=== PATIENT | male | born 1960 | race Caucasian/White ===

== ENCOUNTER 2019-08-06 07:38 | Day surgery (SDC) | payer MEDICARE, OTHER, SELFPAY ==
[2019-08-05 11:29] VITALS: BMI 46.5
--- NOTE | 2019-08-06 08:02 | ANES.PREANES ---
Pre-Anesthetic Assessment Pre-Anesthetic Assessment: Height/Weight: Height 1.8 m Weight 151.5 kg Preop Diagnosis: polyps Proposed Procedure: Operation Date: 08/06/19 09:15 Proposed Procedures p Colonoscopy(Not Applicable) - Urban Gotti MD Familial anesthetic complications: No trouble Was Beta Rick taken within 24 hours: Yes Last intake: NPO since yesterday, sips with meds this morning Social: Social History: Alcohol (2-3 beers a day) and Tobacco Packs per day: 2 ppd Exam: Pre-Anes Outpt Exam: alert, oriented x 3, clear to auscultation bilaterally and regular rate & rhythm Airway: Submandibular: WNL Cervical ROM: WNL MP: 3 Additional comments: missing Pulmonary: Pulmonary: None reported CV/HEM: CV/HEM: HTN : : None reported Hepatic: Hepatic: None reported GI: GI: None reported Metabolic: Metabolic: DM and Morbid obesity Comments: On insulin Musc/skel: Comments: 2014 uses wheelchair due to Broken feet and bad knee Neuropsych: Neuropsych: None reported Anesthetic Plan: ASA status: II Anesthesia: MAC Risk of > 500 ml blood loss (7ml/kg in children): No PFSH Anesthesia PFSH: Social History (Updated 08/05/19 @ 11:21 by Patricia Villa) Smoking and tobacco status: former smoker Quit status (tobacco): has quit using tobacco Alcohol intake: current Alcohol intake frequency: 3 or more drinks per day Substance/Drug Use: never Data Anesthesia Cardiac Studies: No Data to Display
--- NOTE | 2019-08-06 08:09 | PM.PACU ---
PACU note Post-Anesthesia Exam: awake and vital signs stable Disposition: discharged and back to floor
[2019-08-06 08:54] VITALS: BP 180/88; PULSE 68; RESP 18; TEMP 36.7; O2SAT 95
[2019-08-06] MEDS: sodium chloride 0.9% 1,000 ML 30 ML (09:01)
[2019-08-06 09:16] LABS: Glucose Point of Care 145 mg/dL (70-110)
--- NOTE | 2019-08-06 09:24 | P.HPUD_ITS ---
H&P update H&P Update: DATE OF SURGERY/PROCEDURE: 08/06/19 DATE H&P PERFORMED: 03/18 H&P UPDATE INFORMATION: H&P completed within last 30 days (07/10/19), No changes to prior documentation, H&P to be scanned into chart and H&P is in [facility] [place] EMR on date indicated PREOP DIAGNOSIS: History of bleeding per rectum and colon polyp PRIMARY INDICATION FOR PROCEDURE: Colonoscopy PLANNED PROCEDURE: Operation Date: 08/06/19 09:15 Proposed Procedures p Colonoscopy(Not Applicable) - Urban Gotti MD Full H&P Perinent History: Social History: Social History Smoking and tobacco status: former smoker Quit status (tobacco): has quit using tobacco Alcohol intake: current Alcohol intake frequency: 3 or more drinks per day Substance/Drug Use: never
[2019-08-06 10:17] VITALS: BP 139/84; PULSE 65; RESP 16; TEMP 36.5; O2SAT 93
--- NOTE | 2019-08-06 10:21 | ANE.PACU ---
 Inpatient post-anesthesia follow up: Airway intact: Yes Vital signs: Temperature 98.1 F Pulse Rate [Apical ] 68 Respiratory Rate 18 Blood Pressure [Le ft Arm] 180/88 Pulse Oximetry 95 Oxygen Delivery Me thod Room Air Oxygen Flow Rate Fraction of Inspir ed Oxygen Hydration adequate: Yes Nausea and vomiting: No Pain level: 2 Mental status: Baseline
[2019-08-06 10:32] VITALS: BP 148/78; PULSE 67; RESP 18; O2SAT 94
== END 2019-08-06 10:54 | disposition home or self-care (01) ==
PROVIDERS: Family Provider Nurse Practitioner Family; PCP Nurse Practitioner Family; Visit Provider Surgery
PROC: 0DJD8ZZ Inspection of Lower Intestinal Tract, Via Natural or Artificial Opening Endoscopic (ICD-10-PCS; CPT 45378; principal; 2019-08-06 09:15)
DX: Z86.010 Personal history of colon polyps (principal); K62.5 Hemorrhage of anus and rectum; D12.2 Benign neoplasm of ascending colon; D12.5 Benign neoplasm of sigmoid colon; F17.210 Nicotine dependence, cigarettes, uncomplicated; I10 Essential (primary) hypertension; E11.9 Type 2 diabetes mellitus without complications; E66.01 Morbid (severe) obesity due to excess calories; Z68.42 Body mass index [BMI] 45.0-49.9, adult; Z79.4 Long term (current) use of insulin
CPT/HCPCS: 36416; 45380; 45385; 82962; 88305; J2704; J7030

== ENCOUNTER → 2019-08-27 14:16 | Outpatient (BNVA) | payer MEDICARE, OTHER, SELFPAY | PROVIDERS: Family Provider Nurse Practitioner Family; PCP Nurse Practitioner Family; Visit Provider Nurse Practitioner Family | DX: I10 Essential (primary) hypertension (principal); L97.521 Non-pressure chronic ulcer of other part of left foot limited to breakdown of skin; E11.9 Type 2 diabetes mellitus without complications; Z79.4 Long term (current) use of insulin | CPT/HCPCS: 83036 ==

== ENCOUNTER → 2020-01-07 09:51 | Outpatient (BNVA) | payer MEDICARE, OTHER, SELFPAY | PROVIDERS: Family Provider Nurse Practitioner Family; PCP Nurse Practitioner Family; Visit Provider Nurse Practitioner Family | DX: E11.9 Type 2 diabetes mellitus without complications (principal); Z79.4 Long term (current) use of insulin; H10.9 Unspecified conjunctivitis; E78.5 Hyperlipidemia, unspecified; I10 Essential (primary) hypertension; H57.9 Unspecified disorder of eye and adnexa | CPT/HCPCS: 80053; 80061; 82044; 83036 ==

== ENCOUNTER → 2020-05-10 10:54 | Outpatient (BNVA) | payer MEDICARE, OTHER, SELFPAY | PROVIDERS: Family Provider Nurse Practitioner Family; PCP Nurse Practitioner Family; Visit Provider Nurse Practitioner Family | DX: Z79.899 Other long term (current) drug therapy (principal); Z23 Encounter for immunization; E08.40 Diabetes mellitus due to underlying condition with diabetic neuropathy, unspecified | CPT/HCPCS: 80053; 83036 ==

== ENCOUNTER → 2020-05-24 11:55 | Outpatient (BNVA) | payer MEDICARE, OTHER, SELFPAY | PROVIDERS: Family Provider Nurse Practitioner Family; PCP Nurse Practitioner Family; Visit Provider Nurse Practitioner Family | DX: Z03.818 Encounter for observation for suspected exposure to other biological agents ruled out (principal) | CPT/HCPCS: 87635 ==

== ENCOUNTER 2020-08-12 11:27 | Outpatient (CLI) | payer MEDICARE, OTHER, SELFPAY ==
--- NOTE | 2020-08-12 11:44 | USCV_ITS ---
Forrest Xiong Age: 60 Gender: M : 1960 Exam Date: 08/12/2020 12:02 Ordering Phys: Kathy LeonardoP Technologist: Estelle George [place] [facility] [place]WELLING HISTORY: Lower extremity swelling. PROCEDURES: Venous duplex imaging was performed in bilateral lower extremities. The following venous structures were evaluated: common femoral vein, profunda vein, proximal portion of the greater saphenous vein, superficial femoral vein, and the popliteal vein. In addition, the posterior tibial and peroneal trunk were evaluated. FINDINGS: Normal 2-D Doppler and augmentation and compressibility throughout the lower extremity venous structures. Additional imaging through the proximal calf veins also reveals no thrombus. Limited evaluation of the greater saphenous vein is patent with no thrombus.. CONCLUSIONS No evidence of left lower extremity DVT. Roderick Isaacs MD (Electronically Signed) Final Date: 12 August 2020 17:53 Amended: 13 August 2020 09:34 C
== END 2020-08-12 11:28 | disposition home or self-care (01) ==
LOC: RAD 11:35
PROVIDERS: PCP Nurse Practitioner Family; Visit Provider Nurse Practitioner Family
DX: I82.402 Acute embolism and thrombosis of unspecified deep veins of left lower extremity (principal); M79.89 Other specified soft tissue disorders
CPT/HCPCS: 93971

== ENCOUNTER 2020-08-18 06:00 | Outpatient (RCR) | payer MEDICARE, OTHER, SELFPAY | END 2020-08-29 23:59 | disposition home or self-care (01) | LOC: MOT 06:00 | PROVIDERS: PCP Nurse Practitioner Family; Referring Provider Nurse Practitioner Family; Visit Provider Nurse Practitioner Family | DX: I89.0 Lymphedema, not elsewhere classified (principal) | CPT/HCPCS: 97140; 97166 ==

== ENCOUNTER 2020-08-30 06:00 | Outpatient (RCR) | payer MEDICARE, OTHER, SELFPAY | END 2020-09-26 23:59 | disposition home or self-care (01) | LOC: MOT 06:00 | PROVIDERS: PCP Nurse Practitioner Family; Referring Provider Nurse Practitioner Family; Visit Provider Nurse Practitioner Family | DX: I89.0 Lymphedema, not elsewhere classified (principal) | CPT/HCPCS: 97140 ==

== ENCOUNTER 2020-09-27 06:00 | Outpatient (RCR) | payer MEDICARE, OTHER, SELFPAY | END 2020-10-27 23:59 | disposition home or self-care (01) | LOC: MOT 06:00 | PROVIDERS: PCP Nurse Practitioner Family; Referring Provider Nurse Practitioner Family; Visit Provider Nurse Practitioner Family | DX: I89.0 Lymphedema, not elsewhere classified (principal) | CPT/HCPCS: 97140 ==

== ENCOUNTER → 2020-09-29 10:22 | Outpatient (BNVA) | payer MEDICARE, OTHER, SELFPAY | PROVIDERS: PCP Nurse Practitioner Family; Visit Provider Nurse Practitioner Family | DX: E11.9 Type 2 diabetes mellitus without complications (principal); E78.5 Hyperlipidemia, unspecified; Z79.4 Long term (current) use of insulin; S90.412D Abrasion, left great toe, subsequent encounter; S99.922A Unspecified injury of left foot, initial encounter; X58.XXXA Exposure to other specified factors, initial encounter | CPT/HCPCS: 80061; 83036; 87070 ==

== ENCOUNTER → 2021-02-17 11:10 | Outpatient (BNVA) | payer MEDICARE, OTHER, SELFPAY | PROVIDERS: PCP Nurse Practitioner Family; Visit Provider Nurse Practitioner Family | DX: E11.9 Type 2 diabetes mellitus without complications (principal); Z79.4 Long term (current) use of insulin; I10 Essential (primary) hypertension | CPT/HCPCS: 80053; 83036 ==

== ENCOUNTER → 2021-08-11 09:09 | Outpatient (BNVA) | payer MEDICARE, OTHER, SELFPAY | PROVIDERS: PCP Nurse Practitioner Family; Visit Provider Nurse Practitioner Family | DX: L97.511 Non-pressure chronic ulcer of other part of right foot limited to breakdown of skin (principal); L97.521 Non-pressure chronic ulcer of other part of left foot limited to breakdown of skin; E11.9 Type 2 diabetes mellitus without complications; I10 Essential (primary) hypertension | CPT/HCPCS: 80053; 80061; 83036 ==

== ENCOUNTER → 2021-12-08 09:36 | Outpatient (BNVA) | payer MEDICARE, OTHER, SELFPAY | PROVIDERS: PCP Nurse Practitioner Family; Visit Provider Thoracic Surgery (Cardiothoracic Vascular Surgery) | DX: I73.9 Peripheral vascular disease, unspecified (principal); F17.210 Nicotine dependence, cigarettes, uncomplicated | CPT/HCPCS: 99203 ==

== ENCOUNTER → 2022-01-02 12:25 | Outpatient (BNVA) | payer MEDICARE, OTHER, SELFPAY | PROVIDERS: PCP Nurse Practitioner Family; Visit Provider Internal Medicine | DX: I73.9 Peripheral vascular disease, unspecified (principal); I10 Essential (primary) hypertension; E08.40 Diabetes mellitus due to underlying condition with diabetic neuropathy, unspecified; E78.5 Hyperlipidemia, unspecified; Z79.4 Long term (current) use of insulin; L98.499 Non-pressure chronic ulcer of skin of other sites with unspecified severity; F17.210 Nicotine dependence, cigarettes, uncomplicated | CPT/HCPCS: 99204; 99205 ==

== ENCOUNTER → 2022-01-11 09:48 | Outpatient (BNVA) | payer MEDICARE, OTHER, SELFPAY | PROVIDERS: PCP Nurse Practitioner Family; Visit Provider Internal Medicine | DX: I10 Essential (primary) hypertension (principal); I73.9 Peripheral vascular disease, unspecified; R58 Hemorrhage, not elsewhere classified | CPT/HCPCS: 80048; 85025; 85610 ==

== ENCOUNTER 2022-01-16 09:14 | Observation (INO) | payer MEDICARE, OTHER, SELFPAY ==
[2022-01-16] VITALS (28 sets, daily range): BP systolic 125–188; BP diastolic 73–102; PULSE 56–97; RESP 9–23; TEMP 36.6–36.8; O2SAT 89–96; BMI 48.1
--- NOTE | 2022-01-16 07:30 | XACV_ITS ---
Ht: 180 cm Wt: 156 kg BSA: 2.88 m2 Any Known Allergies: No known allergies Gender: Male : 1960 Exam Type: Invasive Peripheral Vascular Procedure(s): Procedure Description: Peripheral Cath Diagnostic Procedure Procedure Description: Abdominal aortic angiography Procedure Description: Lower extremities' angiography Procedure Description: Peripheral vascular Intervention Procedure Description: PV Balloon Exam Priority: Routine Abdominal Diagnostic Findings Distal aorta: Patent. Lower Extremity Diagnostic Findings Left common iliac artery: Patent Left external iliac artery: Patent Left common femoral artery: Patent Left profunda: Patent Left SFA: Has 70% proximal vessel stenosis. Also has 40 to 50% distal vessel stenosis. Left popliteal artery: Patent Left TP trunk: Patent Left anterior tibial artery: Patent Left peroneal artery: Patent Left posterior tibial artery: Patent. Right common iliac artery: Patent Right external iliac artery: Patent Right common femoral artery: Patent Right profunda: Patent Right SFA: Has 20-30% stenosis in the mid segment. Right popliteal artery: Patent Right TP trunk: Patent Right anterior tibial artery: Patent Right peroneal artery: Patent Right posterior tibial artery: Patent. Indication:Lifestyle limiting claudication/ multiple lower extremity ulcers history. Left Proximal Superficial Femoral Artery: 70% stenosis. Lower Extremity Interventional Findings Procedure detail: Using Glidewire, we crossed proximal left SFA stenosis. Balloon angioplasty was performed with 6.0 x 60mm balloon after administering heparin. Distal vessel stenosis was moderate and was not treated with balloon angioplasty. Lesion expanded well and flow improved. Glidewire was removed. Sheath was sutured in place for removal later. Patient left the [facility] in a stable condition.. Left Proximal Superficial Femoral Artery: 70% stenosis treated with AB ARMADA 35 OTW [id number]. Conclusions There is severe left proximal SFA stenosis that was revascularized with balloon angioplasty.. Left Proximal Superficial Femoral Artery was treated with Balloon. Recommendations Aspirin and Plavix for at least 3 months. Statin therapy. Outpatient cardiology follow-up in 4 weeks. Hemodynamic Data Phase:Rest AO : 177.0 / 78.0 ( 108.0 ) @ 9:39:00 AM 168.0 / 77.0 ( 109.0 ) @ 9:59:00 AM Access Site Site: Right Femoral artery Sheath Size: 6 Fr Hemost... Method: Angio-Seal VIP (St. Favian) Hemost... Success: Successful Procedure Details Findings Pre-Procedure Time Out. Identified patient by full name and date of as verbalized by the patient/guarantor. Does the consent match the physician's order: Yes. Accurate & Complete Informed Consent: Yes. Inpatient/Outpatient History & Physical on Chart: Yes. If H&P is completed, is and addenduem needed: No; If yes, is the addendum complete: N/A. Visualize and Verify Site with Patient/Guarantor: N/A. Relevant Radiology Images available: Yes. Pre-op teaching completed and patient verbalized understanding. The risks, benefits, and alternatives of sedation and/or procedure were discussed by physician. The patient agrees to continue. Procedure started. Correct patient, site and procedure confirmed by cath team. Current diagnosis: PVD. PERRLA. Strong, equal hand stress test technician bilaterally. Lungs clear x 5 lobes. IV Site on Arrival: 18 gauge in the right anticubital. IV Fluids: 0.9% NaCl at KVO. 0 mL infused prior to crown and bridge dental lab technician. Pre Procedural Pulses: right posterior tibial was Doppled. Pre Procedural Pulses: bilateral dorsalis pedis was Doppled. Oxygen started at 2liters/min via nasal canula. bilateral groins was prepped with chloroprep then draped in the usual sterile fashion. Physician notified. Baseline sample Acquired. HR: 55 BPM. Patient's family waiting in CPRU. Dr. Fitzpatrick will update at the completion of the procedure. Physician arrived. Physician scrubbed in. Immediate Pre-Procedure Time Out. Correct Patient: Yes; Correct Procedure: Yes; Correct Site: Yes; Correct Patient Position: Yes; Correct Supplies: Yes; Dried Flammable Prep: Yes; Blood Products Available: N/A. Lidocaine 1% infiltrated to the right groin. Arterial access obtained. A 5 portuguese UF catheter in over wire. Pigtail postioned above the bifurcation of the iliacs. Aortagram performed @ 10 mL/sec for a total of 30 mL. 260 0.035 stiff angled glidewire in through the UF catheter. Glidewire out. Left common iliac selected and arteriogram with runoff performed @ 10 mL/sec for a total of 30 mL. Left common iliac selected and arteriogram with runoff performed @ 10 mL/sec for a total of 30 mL in DSA to better visualize the lower leg vessels. Glidewire in and advanced past the lesion in the left SFA. UF Catheter removed over the exchange glidewire. Inflation number : 1 A AB ARMADA 35 OTW [id number] was prepped and advanced across the Proximal Superficial Femoral, Left , then inflated to 6 SUDHIR for 1:34 seconds. Inflation number: 2 The AB ARMADA 35 OTW [id number] was reinflated across the Proximal Superficial Femoral, Left, to 6 SUDHIR for 1:36 seconds. Inflation number: 3 The AB ARMADA 35 OTW [id number] was reinflated across the Proximal Superficial Femoral, Left, to 6 SUDHIR for 1:02 seconds. Balloon out. A 5Fr UF catheter in over the glidewire. Glidewire out. Left common iliac selected and arteriogram with runoff performed @ 10 mL/sec for a total of 30 mL. Catheter removed over the exchange glidewire. Glidewire out. Sheath injected in Right common femoral artery and runoff performed at 10 mL/sec for a total of 30 mL. A Right femoral angiogram was performed to determine safe placement of closure device. Angioseal placed without complications. No signs or symptoms of hematoma noted. Sterile dressing applied per usual sterile fashion. Lot # [id number]. Exp. 2021-11-16. Post Procedure: Pulses reassessed and unchanged. PERRLA. Strong, equal hand stress test technician bilaterally. No VTE prophylaxis required. A Angio-Seal VIP (St. Favian) was successful obtaining hemostatsis at the Right Femoral artery insertion site. Total IV fluids: 46 mL. Medication's Wasted: Heparin = 3000 units. Post-op diagnosis: PTCA of the left Proximal SFA. Complications: none. Estimated blood loss: 5mL-10mL. Responsiveness - Normal response to verbal stimuli; alert and oriented, PERRLA. Airway - Unaffected, no intervention required; spontaneous ventilation. Circulation: W/N/L, pulses unchanged. Nausea/Vomiting: No. Procedure completed. Patient transferred by bed to 1st floor. Vital chart was stopped. Procedure Medications Start: 8:20 AM Stop: 8:20 AM Medication: Fentanyl Amount: 50 mcg Route: I.V. Start: 8:29 AM Stop: 8:29 AM Medication: Versed Amount: 1 mg Route: I.V. Start: 8:31 AM Stop: 8:31 AM Medication: Hydralazine Amount: 20 mg Route: I.V. Start: 8:34 AM Stop: 8:34 AM Medication: Versed Amount: 1 mg Route: I.V. Start: 8:34 AM Stop: 8:34 AM Medication: Fentanyl Amount: 25 mcg Route: I.V. Start: 8:50 AM Stop: 8:50 AM Medication: Heparin Amount: 6000 units Route: I.V. Start: 8:52 AM Stop: 8:52 AM Medication: Versed Amount: 1 mg Route: I.V. Start: 9:01 AM Stop: 9:01 AM Medication: Versed Amount: 1 mg Route: I.V. Start: 9:03 AM Stop: 9:03 AM Medication: Heparin Amount: 2000 units Route: I.V. Start: 9:07 AM Stop: 9:07 AM Medication: Fentanyl Amount: 25 mcg Route: I.V. I, the attending physician, have reviewed and verified all procedure medications. Yes, all medications given per verbal order History/Risk Factors Hypertension: Yes Dyslipidemia: Yes Peripheral Arterial Disease (PAD): Yes Obesity: Yes Renal Disease: No Tobacco Use: Current/Recent(w/in 1 year) Prior Interventions PCI: No CABG: No Valve Surgery: No Report Signatures Finalized by Earnest Fitzpatrick MD on 01/27/2022 09:04 AM
[2022-01-16] MEDS: diphenhydrAMINE 50 mg Capsule PO (07:45)
--- NOTE | 2022-01-16 08:28 | W.PM.OPSUD ---
Surgery/Procedure H&P Update DATE OF PROCEDURE: January 16, 2022 DATE H&P PERFORMED: 01/02/22 H&P UPDATE INFORMATION: I have reviewed H&P completed within last 30 days, I have examined patient prior to procedure and No changes to prior documentation PREOP DIAGNOSIS: Lifestyle limiting claudication/ multiple lower extremity ulcers history PRIMARY INDICATION FOR PROCEDURE: Lifestyle limiting claudication/ multiple lower extremity ulcers history PLANNED PROCEDURE: Operation Date: 01/16/22 08:30 Proposed Procedures p Peripheral Diagnostic(Bilateral) - Earnest Fitzpatrick M.D Possible intervention PATIENT REASSESSED PRIOR TO SEDATION, WITH NO CHANGE NOTED: Yes PHYSICAL EXAM: alert, oriented x 3, clear to auscultation bilaterally and regular rate & rhythm AIRWAY EVAL/ANESTHESIA PLAN: ASA III, Local Anesthesia, Risks, benefits & alternatives of sedation and/or procedure discussed and Patient agrees to continue as planned ADDITIONAL INFORMATION: Moderate sedation
[2022-01-16] MEDS: amlodipine 5 mg Tablet 10 MG PO (09:42)
[2022-01-16] MEDS: TRAMadol 50 mg Tablet PO (09:42)
[2022-01-16] MEDS: ALPRAZolam 0.5 mg Tablet 0.25 MG PO (09:43)
[2022-01-16] MEDS: sodium chloride 0.9% 1,000 ML 100 ML IV (09:43)
[2022-01-16] MEDS: fentaNYL 50 mcg/mL INJ 2mL IVP (10:06)
--- NOTE | 2022-01-16 10:22 | PC.NURSE ---
dr polk called to notify that pt is having terrible back pain, unrelieved by pillow placement. pt extremely uncomfortable, holding breath, hypertenisve. order received for fentanyl. given and will monitor closely for changes in cath site and hemodynamics.
[2022-01-16] MEDS: cyclobenzaprine 10 mg Tablet PO (10:33)
[2022-01-16] MEDS: acetaminophen 325 mg Tablet 650 MG PO (11:34)
[2022-01-16] MEDS: hyDRALAzine 20 mg/mL INJ 1 mL 10 MG IVP ×2 (17:16→21:43)
[2022-01-16] MEDS: pregabalin 150 mg Capsule PO (17:16)
--- NOTE | 2022-01-16 19:15 | PC.NURSE ---
Patient arrived on unit via moterized wheelchair. Patient was assisted into bed. Right groin site was assessed. Right groin site is soft, no hematoma present, dressing is intact and not drainage noted, bilateral pedal pulses are palpable. Patient denies pain.
[2022-01-16] MEDS: metoprolol tartrate 50 mg Tablet 75 MG PO (19:18)
[2022-01-16] MEDS: insulin lispro 100 unit/1 mL SUBCUT (22:37)
[2022-01-17] VITALS (7 sets, daily range): BP systolic 160–208; BP diastolic 69–94; PULSE 59–86; RESP 16–17; TEMP 37–37.3; O2SAT 90–95
--- NOTE | 2022-01-17 01:03 | PC.NURSE ---
Spoke with regarding patient with elevated BP, 195/[address] Fitzpatrick ordered to give another dose of 10mg IV hydralizine and if recheck BP is still greater than 180 then order to start nitro drip.
[2022-01-17] MEDS: hyDRALAzine 20 mg/mL INJ 1 mL 10 MG IVP (01:12)
[2022-01-17] MEDS: TRAMadol 50 mg Tablet PO (01:23)
[2022-01-17] MEDS: nitroglycerin drip 50 MG/250 ML PREMIX IV (03:46)
[2022-01-17 05:36] LABS: Basophils # 0.1 10^3/uL (0.0-0.1); Basophils % 1.2 %; Eosinophils # 0.5 10^3/uL (0.0-0.8); Eosinophils % 4.7 %; Hematocrit 46.3 % (42.0-52.0); Hemoglobin 15.7 g/dL (11.7-16.6); Lymphocytes # 3.3 10^3/uL (0.8-4.8); Lymphocytes % 29.9 %; Mean Corpuscular HGB Conc 33.9 g/dL (30.0-36.0); Mean Corpuscular Hemoglobin 31.8 pg (28.0-34.0); Mean Corpuscular Volume 93.9 fl (80-94); Mean Platelet Volume 10.6 fL (7.4-10.4); Monocytes # 1.1 10^3/uL (0.2-0.9); Neutrophils # 5.93 10^3/uL (1.8-7.7); Neutrophils % 53.8 %; Nucleated Red Blood Cells % 0 %; Platelet Count 166 10^3/cmm (130-400); Red Blood Count 4.93 10^6/uL (4.1-5.3); Red Cell Distribution Width 13.6 % (12.1-15.1)
[2022-01-17 06:02] LABS: Anion Gap 14.9 (5-19); Blood Urea Nitrogen 12 mg/dL (8-23); Calcium 9.2 mg/dL (8.5-10.5); Carbon Dioxide 24 mmol/L (22-29); Chloride 99 mmol/L (98-107); Creatinine Clr Calc Pharmacy 149.6883; Glomerular Filtration Rate 98.6 mL/min (90-130); Glucose 155 mg/dL (65-115); Osmolality Calculated 281 mOsm/kg (285-295); Potassium 3.9 mmol/L (3.5-5.1); Sodium 134 mmol/L (136-145)
[2022-01-17 08:17] LABS: Glucose Point of Care 158 mg/dL (70-110)
[2022-01-17 08:18] LABS: Glucose Point of Care 154 mg/dL (70-110)
[2022-01-17 08:18] LABS: Glucose Point of Care 186 mg/dL (70-110)
[2022-01-17] MEDS: insulin lispro 100 unit/1 mL SUBCUT (08:43)
[2022-01-17] MEDS: amlodipine 5 mg Tablet 10 MG PO (08:44)
[2022-01-17] MEDS: aspirin 81 mg EC Tablet PO (08:44)
[2022-01-17] MEDS: clopidogrel 75 mg Tablet PO (08:44)
[2022-01-17] MEDS: pregabalin 150 mg Capsule PO (08:44)
--- NOTE | 2022-01-17 08:49 | P.SS_ITS ---
Short Stay Summary Providers Date of Admit/Discharge: 01/31/22 Attending Provider: Earnest Fitzpatrick M.D Primary Care Provider: GENE Bartholomew Chief Complaint: [id number] [id number] HPI History of Present Illness Forrest Xiong is a 61 year old male with past medical history of hypertension has been referred by Dr. Lane for evaluation of peripheral artery disease and possible peripheral angiogram.? According to patient he has been getting on and off lower extremity ulcers.? He also gets claudication symptoms.? He is currently heavy smoker and smokes about 1 to 2 packs/day.? He underwent Doppler ultrasound that showed significant stenosis in SFA and popliteal arteries on the left lower extremity.? It also showed stenosis in the distal iliac and femoral arteries.?? Review of Systems Const: Denies: fatigue Card: Reports: swelling of feet/ankles, dyspnea on exertion and leg pain with exertion; Denies: chest pain, palpitations, irregular heart rhythm, lightheadedness, pre- syncope or orthopnea Resp: Denies: dyspnea or productive cough Musc: Reports: neck pain and back pain Neuro: Denies: headache(s) or dizziness Psych: Denies: anxiety, depression, suicidal ideation or homicidal ideation [place]/Lymph: Denies: easy bruising or easy bleeding Home Meds/Allergies Home Medications and Allergies Home Medications Medication Instructions Recorded Confirmed Type insulin detemir U-100 100 unit/mL 35 unit SUBCUT DAILY@0700 01/13/22 01/13/22 History (3 mL) subcutaneous pen (Levemir FlexTouch U-100 Insulin) Allergies Allergy/AdvReac Type Severity Reaction Status Date / Time No Known Allergies Allergy Verified 12/20/21 13:22 PFSH Acute PFSH: Medical History Anxiety and depression Colon polyps Diabetes Diabetes mellitus, type II, insulin dependent Diabetic neuropathy associated with diabetes mellitus due to underlying condition GERD (gastroesophageal reflux disease) HTN (hypertension) Hx of lymphadenopathy Hyperlipemia PVD (peripheral vascular disease) Ulcer of toe Family History Denies family history of Anesthesia complication Bleeding disorder Social History Smoking and tobacco status: current every day smoker cigarettes Packs smoked per day: 2 Years cigarettes smoked: 45 Alcohol intake: current Alcohol intake frequency: 3 or more drinks per day Vitals/I&O/Wt Last Vital Signs Temp 98.6 F 01/17/22 07:46 Pulse 68 01/17/22 07:46 Resp 16 01/17/22 07:46 BP 174/89 01/17/22 07:46 Pulse Ox 94 01/17/22 07:46 01/16/22 01/17/22 01/17/22 22:59 06:59 14:59 Intake Total 120 / 785 1483.700 / 2268.700 7.4 / 7.4 Output Total 400 / 400 Balance 120 / 785 1083.700 / 1868.700 7.4 / 7.4 Weight last 48 hrs Weight 345 lb Physical Exam Narrative: GENERAL: Patient is alert, awake and oriented x3. [] NECK: No jugular vein distension. [] HEENT: No cyanosis. No icterus. No pallor. [] HEART: Regular S1 and S2. No murmur, rub or gallop. [] LUNGS: Clear to auscultate bilaterally. [] ABDOMEN: Soft, nontender and nondistended. Positive bowel sounds. No guarding, rebound or tenderness. [] CENTRAL NERVOUS SYSTEM: Grossly nonfocal. [] EXTREMITIES: Lower extremities with 1+ edema bilaterally. Diminshed left lower extremity pulses Hospital Course Hospital Course 61 year old male with past medical history of hypertension has been referred by Dr. Lane for evaluation of peripheral artery disease and possible peripheral angiogram.? According to patient he has been getting on and off lower extremity ulcers.? He also gets claudication symptoms.? He is currently heavy smoker and smokes about 1 to 2 packs/day.? He underwent Doppler ultrasound that showed significant stenosis in SFA and popliteal arteries on the left lower extremity.? It also showed stenosis in the distal iliac and femoral arteries.?? Patient had severe left SFA stenosis and underwent balloon angioplasty in the proximal vessel. Patient was observed overnight and stayed stable. He was discharged in a stable condition with outpatient follow-up. SSS Data Data Completed and Pending: Pending at discharge Category Date Time Status ANTHROPOLOGY FACULTY MEMBER request for service Routin e Exams 01/16/22 07:30 Taken Discharge Plan Discharge Patient Disposition: Home Condition: Stable Prescriptions: New clopidogrel 75 mg Tablet 75 mg PO DAILY Qty: 90 1RF aspirin 81 mg Tablet,Delayed Release (Dr/Ec) 81 mg PO DAILY Qty: 90 3RF Continued alprazolam 0.25 mg tablet 0.25 mg PO DAILY PRN (Reason: Anxiety) Qty: 30 0RF Rx Instructions: MUST LAST THIRTY DAYS Avoid taking with tramadol (DME) blood-glucose meter [Blood Glucose Monitoring] Kit See Rx Instructions .ROUTE .MEDSUPPLY Qty: 1 0RF Rx Instructions: As directed (DME) Contour Next Test Strips Strip See Rx Instructions .ROUTE .MEDSUPPLY Qty: 50 2RF Rx Instructions: As directed (DME) pen needle, diabetic [TechLITE Pen Needle] 32 gauge x 1/4 needle See Rx Instructions .ROUTE .MEDSUPPLY Qty: 50 0RF Rx Instructions: As directed Levemir FlexTouch U-100 Insuln 100 unit/mL (3 mL) insulin pen 44 unit SUBCUT BEDTIME Qty: 15 0RF pregabalin [Lyrica] 150 mg capsule 150 mg PO BID 30 Days Qty: 60 2RF tramadol 50 mg tablet 50 mg PO TID PRN (Reason: Pain) Qty: 90 0RF simvastatin 40 mg tablet See Rx Instructions .ROUTE .COMPLEX Qty: 90 0RF Dose Instruction: TAKE 1 TABLET BY MOUTH DAILY Rx Instructions: TAKE 1 TABLET BY MOUTH DAILY pantoprazole 40 mg tablet,delayed release (DR/EC) See Rx Instructions .ROUTE .COMPLEX Qty: 90 0RF Dose Instruction: TAKE 1 TABLET BY MOUTH DAILY Rx Instructions: TAKE 1 TABLET BY MOUTH DAILY amlodipine 5 mg tablet See Rx Instructions .ROUTE .COMPLEX Qty: 90 0RF Dose Instruction: TAKE 1 TABLET BY MOUTH DAILY Rx Instructions: TAKE 1 TABLET BY MOUTH DAILY buspirone 10 mg tablet See Rx Instructions .ROUTE .COMPLEX Qty: 90 0RF Dose Instruction: TAKE 1 TABLET BY MOUTH DAILY Rx Instructions: TAKE 1 TABLET BY MOUTH DAILY nebivolol [Bystolic] 20 mg tablet See Rx Instructions .ROUTE .COMPLEX Qty: 180 0RF Dose Instruction: TAKE 2 TABLETS BY MOUTH DAILY. Rx Instructions: TAKE 2 TABLETS BY MOUTH DAILY. Levemir FlexTouch U-100 Insuln 100 unit/mL (3 mL) Insulin Pen 35 unit SUBCUT DAILY@0700 0RF Discharge Orders: Discharge Order (Routine); Ordered 01/17/22 Ordered By: Earnest Fitzpatrick Referrals: Earnest Fitzpatrick M.D [Physician] - 03/03/22 11:00 am (appointment with dr schaefer) Jaena Carroll FNP [Nurse Practitioner] - 01/31/22 3:15 pm Discharge Diet: Diabetic Discharge Activity: Increase activity as tolerated Patient Instructions: Aspirin (By mouth), Clopidogrel (By mouth), Peripheral Vascular Angioplasty (DC), Post Angiogram Home Care Instructions Activity Restrictions/Additional Instructions: Please do not lift more than 5 pounds of weight for the next 5 days Attestations Medical Necessity Statement*: Care not expected to cross 2 midnights. Patient had presented for outpatient peripheral angiogram and underwent successful revascularization of left SFA with balloon angioplasty. Time Spent in Patient Care*: less than 30 min Quality Metrics Clinical Quality Measures: [ No reported AMI, CVA or VTE this stay ] Coding Level of Care Code Acute Social Worker Aide for Em Perez
[2022-01-23 07:22] LABS: Glucose Point of Care 145 mg/dL (70-110)
[2022-01-23 07:22] LABS: Glucose Point of Care 137 mg/dL (70-110)
[2022-01-23 07:24] LABS: Glucose Point of Care 138 mg/dL (70-110)
== END 2022-01-17 11:04 | disposition home or self-care (01) ==
LOC: CSU 09:16 → MEDSURG 18:49
PROVIDERS: Admitting Provider Internal Medicine; PCP Nurse Practitioner Family; Visit Provider Internal Medicine
DX: I70.202 Unspecified atherosclerosis of native arteries of extremities, left leg (principal); Z79.4 Long term (current) use of insulin; F41.9 Anxiety disorder, unspecified; F32.9 Major depressive disorder, single episode, unspecified; E11.40 Type 2 diabetes mellitus with diabetic neuropathy, unspecified; E78.5 Hyperlipidemia, unspecified; F17.210 Nicotine dependence, cigarettes, uncomplicated; I10 Essential (primary) hypertension; E11.622 Type 2 diabetes mellitus with other skin ulcer
CPT/HCPCS: 36415; 36416; 37224; 75625; 75716; 80048; 82962; 85025; 96360; 96372; 99152; 99153; C1725; C1760; C1769; C1887; C1894; G0378; J0360; J1644; J1815; J2250; J3010; J3490; J7030; Q0163; Q9967

== ENCOUNTER → 2022-01-31 13:16 | Outpatient (BNVA) | payer MEDICARE, OTHER, SELFPAY | PROVIDERS: PCP Nurse Practitioner Family; Visit Provider Nurse Practitioner Family | DX: I73.9 Peripheral vascular disease, unspecified (principal); F17.210 Nicotine dependence, cigarettes, uncomplicated | CPT/HCPCS: 80048; 99214 ==

== ENCOUNTER → 2022-02-13 15:23 | Outpatient (BNVA) | payer MEDICARE, OTHER, SELFPAY | PROVIDERS: PCP Nurse Practitioner Family; Visit Provider Nurse Practitioner Family | DX: Z79.4 Long term (current) use of insulin (principal); E11.9 Type 2 diabetes mellitus without complications | CPT/HCPCS: 83036 ==

== ENCOUNTER 2022-03-24 14:09 | Inpatient (IN) | payer MEDICARE, OTHER, SELFPAY ==
--- NOTE | 2022-03-24 14:13 | XR_ITS ---
WS: [id number] Left knee, 3 views, 03/24/2022 Clinical Data: L knee pain Comparison: Left knee, 03/26/2019. Findings: No new fractures or dislocations are seen. There are medial plates attached to the proximal tibia wit h multiple screws reducing an old tibial plateau fracture. There is hypertrophic bone adjacent to the proximal medial tibia and distal medial femoral condyle. The patella shows minimal posterior irregul arity. There is medial joint compartment narrowing with sclerosis and irregularity of the tibial renetta cular surface. The lateral knee joint also shows narrowing with sclerosis of the lateral tibial artic ular surface. The soft tissues show no changes. There are vascular calcifications. XR/XR knee LT 3V* [id number] Impression: 1. No change in internal fixation of left medial tibial plateau fracture. 2. Narrowing of the medial and lateral joint compartments with hypertrophic bon e formation adjacent to the proximal medial tibia and medial femoral condyle.
[2022-03-24 14:25] VITALS: BP 170/92; PULSE 91; RESP 22; TEMP 36.8; O2SAT 87; BMI 45.3
--- NOTE | 2022-03-24 14:35 | ED_ITS ---
Documented by User: Omer Caceres MD 04/09/22 21:21 HPI - Extremity Problem General: Chief complaint: Extremity Problem,Nontraumatic Stated complaint: L KNEE PAIN Time Seen by Provider: 03/24/22 14:35 History of Present Illness: Mr. Xiong is a 62-year-old gentleman with history of diabetes, hypertension, hyperlipidemia, vascular insufficiency who presents to the emergency department due to concern over atraumatic knee pain and swelling. Onset of symptoms was 4 days ago. Since that time he has had worsening throbbing pain that is worse with ambulation and range of motion. He also was noted increased swelling associated with this. Denies signs of s ystemic illness. Intensity symptoms is moderate to severe. No other specific changes in health, exacerbating, or alleviating factors identified. Onset (ago): day(s) Pain Consistency: constant Quality: aching Exacerbating factors: range of motion, weight bearing and walking Associated symptoms: Reports no associated symptoms Review of Systems General: Reports: 10 or more systems reviewed and unremarkable except in HPI and below PFSH ED PFSH: Medical History Anxiety and depression Colon polyps Diabetes Diabetes mellitus, type II, insulin dependent Diabetic neuropathy associated with diabetes mellitus due to underlying condition GERD (gastroesophageal reflux disease) HTN (hypertension) Hx of lymphadenopathy Hyperlipemia PVD (peripheral vascular disease) Ulcer of toe Family History Denies family history of Anesthesia complication Bleeding disorder Social History Smoking and tobacco status: current every day smoker cigarettes Packs smoked per day: 2 Years cigarettes smoked: 45 Alcohol intake: current Alcohol intake frequency: 3 or more drinks per day Physical Exam Const: COMMON NORMALS: alert GENERAL APPEARANCE: cooperative and well developed HENMT: COMMON NORMALS: normocephalic and atraumatic HEAD & SCALP: normocephalic and atraumatic Eye: COMMON NORMALS: conjunctivae normal CONJUNCTIVA: Yes conjunctivae normal SCLERA: sclerae normal Neck/C-Spine: COMMON NORMALS: supple GENERAL: Yes trachea midline Resp: COMMON NORMALS: normal respiratory effort EFFORT & INSPECTION: Yes able to speak in complete sentences Cardio: COMMON NORMALS: regular rate and regular rhythm RATE: regular rate RHYTHM: regular rhythm GI: COMMON NORMALS: Soft to palpation PALPATION: Yes Soft to palpation and No Tenderness to palpation present (GI) Extremity: NARRATIVE EXTREMITY EXAM: Left knee warm and swollen compared to contralateral side. Distal CMS intact. GENERAL: Yes normal exam except as noted and No edema Neuro: COMMON NORMALS: moves all extremities SENSORIUM/ORIENTATION: Yes alert and No Orientation impaired Psych: COMMON NORMALS: mental status grossly normal and Normal thought process present THOUGHT PROCESS: Normal thought process present Course ED course: - Patient was seen and evaluated by me at bedside - Patient placed on cardiac monitors, IV access obtained - Initial evaluation notable for exam as above - Labs and xrays personally interpreted by me -Analgesia given - Labs notable for leukocytosis, normal hemoglobin. Elevated creatinine compared to baseline. Elevated inflammatory markers. - Imaging notable for negative chest x-ray for lobar consolidation or pneumothorax. No DVT or obvious bony abnormality on x-ray. -Handed off to overnight physician pending completion of ED evaluation and admission likely. Vital Signs: Vital signs: Vital Signs Temperature 97.8 F 03/28/22 18:28 Pulse Rate 90 03/28/22 18:28 Respiratory Rate 18 03/28/22 18:28 Blood Pressure 145/81 03/28/22 18:28 Pulse Oximetry 99 03/28/22 18:28 Oxygen Delivery Ia thod 03/28/22 16:00 Oxygen Flow Rate 2 03/28/22 08:00 Fraction of Inspir ed Oxygen 4 03/27/22 20:53 MDM - Extremity (Nontraumatic) Medical Decision Making 62-year-old gentleman presenting with knee swelling and pain. Leukocytosis and inflammatory marker elevation. Handed off to overnight ED physician pending completion of ED evaluation 2007: 62-year-old gentleman checked out to me at shift change by the previous physician this gentleman is tachycardic. He has a white blood cell count of 21.5. He has acute kidney injury with a rising creatinine now to 1.6 his CRP is significantly elevated as well. Chest x-ray is negative. No definite source of sepsis yet. His knee is quite warm and painful to touch. He is having quite a bit of knee pain. He does have a small effusion both on x-ray, and by bedside ultrasound. An attempt was made for aspiration under ultrasound guidance for this patient. Needle was clearly visualized within the suprapatellar recess effusion, but only a few drops of blood were aspirated. Suspect that this is clot in his effusion, and not necessarily septic fluid. Blood cultures are pending. Orthopedics was consulted from the ER, and will see in the morning. Hospitalist will see the patient in the ER Medical Records I reviewed the patient's medical records. Lab Data I reviewed the patient's lab results. : 03/28/22 04:40 03/28/22 04:40 Radiology Impressions Knee X-Ray 03/24/22 14:13 Impression: 1. No change in internal fixation of left medial tibial plateau fracture. 2. Narrowing of the medial and lateral joint compartments with hypertrophic bone formation adjacent to the proximal medial tibia and medial femoral condyle. Chest X-Ray 03/24/22 18:47 IMPRESSION: No acute findings. Tibia/Fibula X-Ray 03/24/22 21:05 IMPRESSION: 1. No acute fracture or bone destruction identified. Foot X-Ray 03/26/22 14:00 IMPRESSION: There are fractures of the left 5th and 4th metatarsal necks with medial displacement of the distal fracture fragment. Duplex Scan Lower Extremity Artery 03/26/22 14:20 Impression No arterial occlusion. There is elevated velocity in the right distal superficial femoral artery and in the proximal left superficial femoral artery consistent with stenosis. Foot MRI 03/28/22 11:21 IMPRESSION: Limited examination as described above. 1. No evidence of osteomyelitis in the LEFT foot or ankle 2. Diffuse soft tissue edema. No drainable fluid collections. 3. Acute fracture with edema involving the 5th metatarsal neck with diffuse edema and mild impaction similar to the recent radiograph. Lower Extremity MRI 03/28/22 15:06 IMPRESSION: Limited examination as described above. 1. Normal bone marrow signal in the distal femur and proximal to mid tibial shaft. Some images degraded due to susceptibility artifact from hardware. No abnormal bone marrow findings to suggest osteomyelitis. 2. Diffuse soft tissue edema with skin thickening. No drainable abscess or fluid collection. Laboratory Results WBC 21.5 10^3/uL (4.0-10.0) H 03/24/22 15:38 RBC 4.58 10^6/uL (4.1-5.3) 03/24/22 15:38 Hgb 14.7 g/dL (11.7-16.6) 03/24/22 15:38 Hct 46.2 % (42.0-52.0) 03/24/22 15:38 MCV 100.9 fl (80-94) H 03/24/22 15:38 MCH 32.1 pg (28.0-34.0) 03/24/22 15:38 MCHC 31.8 g/dL (30.0-36.0) 03/24/22 15:38 RDW 14.6 % (12.1-15.1) 03/24/22 15:38 Plt Count 205 10^3/cmm (130-400) 03/24/22 15:38 MPV 11.9 fL (7.4-10.4) H 03/24/22 15:38 Neut % (Auto) 76.3 % 03/24/22 15:38 Lymph % (Auto) 12.9 % 03/24/22 15:38 [place] % (Auto) 8.5 % 03/24/22 15:38 Eos % (Auto) 0.0 % 03/24/22 15:38 Baso % (Auto) 0.5 % 03/24/22 15:38 Neut # (Auto) 16.41 10^3/uL (1.8-7.7) H 03/24/22 15:38 Lymph # (Auto) 2.8 10^3/uL (0.8-4.8) 03/24/22 15:38 [place] # (Auto) 1.8 10^3/uL (0.2-0.9) H 03/24/22 15:38 Eos # (Auto) 0.0 10^3/uL (0.0-0.8) 03/24/22 15:38 Baso # (Auto) 0.1 10^3/uL (0.0-0.1) 03/24/22 15:38 Nucleated RBC % (auto) 0 % 03/24/22 15:38 Nucleated RBCs # 0.0 /100WBC 03/24/22 15:38 ESR 34 mm/hr (0-10) H 03/24/22 15:38 Sodium 137 mmol/L (136-145) 03/24/22 15:38 Potassium 4.3 mmol/L (3.5-5.1) 03/24/22 15:38 Chloride 100 mmol/L (98-107) 03/24/22 15:38 Carbon Dioxide 25 mmol/L (22-29) 03/24/22 15:38 Anion Gap 16.3 (5-19) 03/24/22 15:38 BUN 29 mg/dL (8-23) H 03/24/22 15:38 Creatinine 1.6 mg/dL (0.7-1.2) H 03/24/22 15:38 GFR Calculation 44.2 mL/min (90-130) L 03/24/22 15:38 Glucose 155 mg/dL (65-115) H 03/24/22 15:38 Calculated Osmolality 293 mOsm/kg (285-295) 03/24/22 15:38 Calcium 8.7 mg/dL (8.5-10.5) 03/24/22 15:38 Total Bilirubin 0.7 mg/dL (0.15-1.2) 03/24/22 15:38 AST 19 U/L (0-40) 03/24/22 15:38 ALT 12 U/L (0-41) 03/24/22 15:38 Alkaline Phosphatase 127 U/L (40-130) 03/24/22 15:38 C-Reactive Protein 393.7 mg/L (0.0-4.9) H 03/24/22 15:38 NT-Pro-B Natriuret Pep 4286 pg/mL (0-125) H 03/24/22 15:38 Total Protein 7.1 g/dL (6.6-8.7) 03/24/22 15:38 Albumin 2.7 g/dL (3.5-5.2) L 03/24/22 15:38 Globulin 4.4 g/dL (1.3-4.6) 03/24/22 15:38 Urine Color [place] (Yellow) 03/24/22 17:40 Urine Appearance Hazy (CLEAR) A 03/24/22 17:40 Urine pH 5 (5-7) 03/24/22 17:40 Ur Specific [place] 1.020 (1.005-1.030) 03/24/22 17:40 Urine Protein 3+ (Negative) H 03/24/22 17:40 Urine Glucose (UA) Norm (Normal) 03/24/22 17:40 Urine Ketones Negative (Negative) 03/24/22 17:40 Urine Blood 2+ (Negative) H 03/24/22 17:40 Urine Nitrate Negative (Negative) 03/24/22 17:40 Urine Bilirubin Neg (Negative) 03/24/22 17:40 Urine Urobilinogen 1 mg/dL (Negative) H 03/24/22 17:40 Ur Leukocyte Esterase Negative (Negative) 03/24/22 17:40 Urine RBC 0-4 /hpf (0-2) H 03/24/22 17:40 Urine WBC 0-4 /hpf (0-5) H 03/24/22 17:40 Ur Squamous Epith Cells 0-4 /hpf (0-5) H 03/24/22 17:40 Amorphous Sediment 1+ /hpf 03/24/22 17:40 Urine Bacteria Trace /hpf (NONE) 03/24/22 17:40 Discharge Plan Discharge Patient Disposition: Admitted As Inpatient Admit Provider: Ramon Nelson Clinical Impression: Sepsis Condition: Stable Discharge Diet: Cardiac and Diabetic Discharge Activity: As per PT/OT instructions Coding Level of Care Code ED Housekeeping Department Worker for Chg Fwd Documented by User: Luciano Javed DO 03/25/22 14:17 HPI - Extremity Problem General: Chief complaint: Extremity Problem,Nontraumatic Stated complaint: L KNEE PAIN Time Seen by Provider: 03/24/22 14:35 PFSH ED PFSH: Medical History Anxiety and depression Colon polyps Diabetes Diabetes mellitus, type II, insulin dependent Diabetic neuropathy associated with diabetes mellitus due to underlying condition GERD (gastroesophageal reflux disease) HTN (hypertension) Hx of lymphadenopathy Hyperlipemia PVD (peripheral vascular disease) Ulcer of toe Family History Denies family history of Anesthesia complication Bleeding disorder Social History Smoking and tobacco status: current every day smoker cigarettes Packs smoked per day: 2 Years cigarettes smoked: 45 Alcohol intake: current Alcohol intake frequency: 3 or more drinks per day Course Vital Signs: Vital signs: Vital Signs Temperature 97.8 F 03/28/22 18:28 Pulse Rate 90 03/28/22 18:28 Respiratory Rate 18 03/28/22 18:28 Blood Pressure 145/81 03/28/22 18:28 Pulse Oximetry 99 03/28/22 18:28 Oxygen Delivery Ia thod 03/28/22 16:00 Oxygen Flow Rate 2 03/28/22 08:00 Fraction of Inspir ed Oxygen 4 03/27/22 20:53 MDM - Extremity (Nontraumatic) Medical Decision Making 2007: 62-year-old gentleman checked out to me at shift change by the previous physician this gentleman is tachycardic. He has a white blood cell count of 21.5. He has acute kidney injury with a rising creatinine now to 1.6 his CRP is significantly elevated as well. Chest x-ray is negative. No definite source of sepsis yet. His knee is quite warm and painful to touch. He is having quite a bit of knee pain. He does have a small effusion both on x-ray, and by bedside ultrasound. An attempt was made for aspiration under ultrasound guidance for this patient. Needle was clearly visualized within the suprapatellar recess effusion, but only a few drops of blood were aspirated. Suspect that this is clot in his effusion, and not necessarily septic fluid. Blood cultures are pending. Orthopedics was consulted from the ER, and will see in the morning. Hospitalist will see the patient in the ER Lab Data : 03/28/22 04:40 03/28/22 04:40 Radiology Impressions Knee X-Ray 03/24/22 14:13 Impression: 1. No change in internal fixation of left medial tibial plateau fracture. 2. Narrowing of the medial and lateral joint compartments with hypertrophic bone formation adjacent to the proximal medial tibia and medial femoral condyle. Chest X-Ray 03/24/22 18:47 IMPRESSION: No acute findings. Tibia/Fibula X-Ray 03/24/22 21:05 IMPRESSION: 1. No acute fracture or bone destruction identified. Foot X-Ray 03/26/22 14:00 IMPRESSION: There are fractures of the left 5th and 4th metatarsal necks with medial displacement of the distal fracture fragment. Duplex Scan Lower Extremity Artery 03/26/22 14:20 Impression No arterial occlusion. There is elevated velocity in the right distal superficial femoral artery and in the proximal left superficial femoral artery consistent with stenosis. Foot MRI 03/28/22 11:21 IMPRESSION: Limited examination as described above. 1. No evidence of osteomyelitis in the LEFT foot or ankle 2. Diffuse soft tissue edema. No drainable fluid collections. 3. Acute fracture with edema involving the 5th metatarsal neck with diffuse mynor ma and mild impaction similar to the recent radiograph. Lower Extremity MRI 03/28/22 15:06 IMPRESSION: Limited examination as described above. 1. Normal bone marrow signal in the distal femur and proximal to mid tibial shaft. Some images degraded due to susceptibility artifact from hardware. No abnormal bone marrow findings to suggest osteomyelitis. 2. Diffuse soft tissue edema with skin thickening. No drainable abscess or fluid collection. Laboratory Results WBC 21.5 10^3/uL (4.0-10.0) H 03/24/22 15:38 RBC 4.58 10^6/uL (4.1-5.3) 03/24/22 15:38 Hgb 14.7 g/dL (11.7-16.6) 03/24/22 15:38 Hct 46.2 % (42.0-52.0) 03/24/22 15:38 MCV 100.9 fl (80-94) H 03/24/22 15:38 MCH 32.1 pg (28.0-34.0) 03/24/22 15:38 MCHC 31.8 g/dL (30.0-36.0) 03/24/22 15:38 RDW 14.6 % (12.1-15.1) 03/24/22 15:38 Plt Count 205 10^3/cmm (130-400) 03/24/22 15:38 MPV 11.9 fL (7.4-10.4) H 03/24/22 15:38 Neut % (Auto) 76.3 % 03/24/22 15:38 Lymph % (Auto) 12.9 % 03/24/22 15:38 [place] % (Auto) 8.5 % 03/24/22 15:38 Eos % (Auto) 0.0 % 03/24/22 15:38 Baso % (Auto) 0.5 % 03/24/22 15:38 Neut # (Auto) 16.41 10^3/uL (1.8-7.7) H 03/24/22 15:38 Lymph # (Auto) 2.8 10^3/uL (0.8-4.8) 03/24/22 15:38 [place] # (Auto) 1.8 10^3/uL (0.2-0.9) H 03/24/22 15:38 Eos # (Auto) 0.0 10^3/uL (0.0-0.8) 03/24/22 15:38 Baso # (Auto) 0.1 10^3/uL (0.0-0.1) 03/24/22 15:38 Nucleated RBC % (auto) 0 % 03/24/22 15:38 Nucleated RBCs # 0.0 /100WBC 03/24/22 15:38 ESR 34 mm/hr (0-10) H 03/24/22 15:38 Sodium 137 mmol/L (136-145) 03/24/22 15:38 Potassium 4.3 mmol/L (3.5-5.1) 03/24/22 15:38 Chloride 100 mmol/L (98-107) 03/24/22 15:38 Carbon Dioxide 25 mmol/L (22-29) 03/24/22 15:38 Anion Gap 16.3 (5-19) 03/24/22 15:38 BUN 29 mg/dL (8-23) H 03/24/22 15:38 Creatinine 1.6 mg/dL (0.7-1.2) H 03/24/22 15:38 GFR Calculation 44.2 mL/min (90-130) L 03/24/22 15:38 Glucose 155 mg/dL (65-115) H 03/24/22 15:38 Calculated Osmolality 293 mOsm/kg (285-295) 03/24/22 15:38 Calcium 8.7 mg/dL (8.5-10.5) 03/24/22 15:38 Total Bilirubin 0.7 mg/dL (0.15-1.2) 03/24/22 15:38 AST 19 U/L (0-40) 03/24/22 15:38 ALT 12 U/L (0-41) 03/24/22 15:38 Alkaline Phosphatase 127 U/L (40-130) 03/24/22 15:38 C-Reactive Protein 393.7 mg/L (0.0-4.9) H 03/24/22 15:38 NT-Pro-B Natriuret Pep 4286 pg/mL (0-125) H 03/24/22 15:38 Total Protein 7.1 g/dL (6.6-8.7) 03/24/22 15:38 Albumin 2.7 g/dL (3.5-5.2) L 03/24/22 15:38 Globulin 4.4 g/dL (1.3-4.6) 03/24/22 15:38 Urine Color [place] (Yellow) 03/24/22 17:40 Urine Appearance Hazy (CLEAR) A 03/24/22 17:40 Urine pH 5 (5-7) 03/24/22 17:40 Ur Specific [place] 1.020 (1.005-1.030) 03/24/22 17:40 Urine Protein 3+ (Negative) H 03/24/22 17:40 Urine Glucose (UA) Norm (Normal) 03/24/22 17:40 Urine Ketones Negative (Negative) 03/24/22 17:40 Urine Blood 2+ (Negative) H 03/24/22 17:40 Urine Nitrate Negative (Negative) 03/24/22 17:40 Urine Bilirubin Neg (Negative) 03/24/22 17:40 Urine Urobilinogen 1 mg/dL (Negative) H 03/24/22 17:40 Ur Leukocyte Esterase Negative (Negative) 03/24/22 17:40 Urine RBC 0-4 /hpf (0-2) H 03/24/22 17:40 Urine WBC 0-4 /hpf (0-5) H 03/24/22 17:40 Ur Squamous Epith Cells 0-4 /hpf (0-5) H 03/24/22 17:40 Amorphous Sediment 1+ /hpf 03/24/22 17:40 Urine Bacteria Trace /hpf (NONE) 03/24/22 17:40 Discharge Plan Discharge Patient Disposition: Admitted As Inpatient Admit Provider: Ramon Nelson Clinical Impression: Sepsis Condition: Stable Discharge Diet: Cardiac and Diabetic Discharge Activity: As per PT/OT instructions Coding Level of Care Code ED Housekeeping Department Worker for Chg Fwjessica
--- NOTE | 2022-03-24 14:53 | USCV_ITS ---
Forrest Xiong Age: 62 Gender: M : 1960 Exam Date: 03/24/2022 15:11 Ordering Phys: Omer Caceres MD Technologist: ADAMARIS Exam Location: [facility] [place] Indication: LLE PAIN AND SWELLING HISTORY: Lower extremity swelling. Lower extremity pain. PROCEDURES: Venous duplex imaging was performed in only the left lower extremity. The following venous structures were evaluated: common femoral vein, profunda vein, proximal portion of the greater saphenous vein, superficial femoral vein, and the popliteal vein. In addition, the posterior tibial and peroneal trunk were evaluated. Serial compression, augmentation maneuvers, and spectral Doppler flow evaluation were performed. FINDINGS: No evidence of DVT seen in any vessel visualized at this time. Examination was technically limited due to body habitus. CONCLUSIONS No evidence of left lower extremity DVT. Roderick Isaacs MD (Electronically Signed) Final Date: 24 March 2022 16:14 S
[2022-03-24 15:59] LABS: Basophils # 0.1 10^3/uL (0.0-0.1); Basophils % 0.5 %; Hematocrit 46.2 % (42.0-52.0); Hemoglobin 14.7 g/dL (11.7-16.6); Lymphocytes # 2.8 10^3/uL (0.8-4.8); Lymphocytes % 12.9 %; Mean Corpuscular HGB Conc 31.8 g/dL (30.0-36.0); Mean Corpuscular Hemoglobin 32.1 pg (28.0-34.0); Mean Corpuscular Volume 100.9 fl (80-94); Mean Platelet Volume 11.9 fL (7.4-10.4); Monocytes # 1.8 10^3/uL (0.2-0.9); Monocytes % 8.5 %; Neutrophils # 16.41 10^3/uL (1.8-7.7); Neutrophils % 76.3 %; Nucleated Red Blood Cells % 0 %; Platelet Count 205 10^3/cmm (130-400); Red Blood Count 4.58 10^6/uL (4.1-5.3); Red Cell Distribution Width 14.6 % (12.1-15.1); White Blood Count 21.5 10^3/uL (4.0-10.0)
[2022-03-24] MEDS: morphine 4 mg/mL SDV 1 mL IVP ×2 (16:00→18:13)
[2022-03-24 16:11] LABS: Erythrocyte Sedimentation Rate 34 mm/hr (0-10)
[2022-03-24 16:48] LABS: Alanine Aminotransferase 12 U/L (0-41); Albumin Level 2.7 g/dL (3.5-5.2); Alkaline Phosphatase 127 U/L (40-130); Anion Gap 16.3 (5-19); Aspartate Amino Transferase 19 U/L (0-40); Blood Urea Nitrogen 29 mg/dL (8-23); Calcium 8.7 mg/dL (8.5-10.5); Carbon Dioxide 25 mmol/L (22-29); Chloride 100 mmol/L (98-107); Globulin 4.4 g/dL (1.3-4.6); Glomerular Filtration Rate 44.2 mL/min (90-130); Glucose 155 mg/dL (65-115); NT Pro B Type Natriuretic Pept 4286 pg/mL (0-125); Osmolality Calculated 293 mOsm/kg (285-295); Potassium 4.3 mmol/L (3.5-5.1); Sodium 137 mmol/L (136-145); Total Bilirubin 0.7 mg/dL (0.15-1.2); Total Protein 7.1 g/dL (6.6-8.7)
[2022-03-24 17:08] LABS: C Reactive Protein 393.7 mg/L (0.0-4.9)
[2022-03-24 18:13] VITALS: RESP 18; O2SAT 90
[2022-03-24 18:31] LABS: Bilirubin Urine Neg (Negative); Blood Urine 2+ (Negative); Glucose Urine UA Norm (Normal); Ketones Urine Negative (Negative); Leukocyte Esterase Urine Negative (Negative); Nitrate Urine Negative (Negative); Protein Urine 3+ (Negative); Urine Appearance Hazy (CLEAR); Urine Color Orange (Yellow); Urobilinogen Urine 1 mg/dL (Negative); pH Urine 5 (5-7)
[2022-03-24 18:43] LABS: Add Urine Culture? No; Amorphous Sediment Urine 1+ /hpf; Bacteria Urine TRACE /hpf; RBC Urine 0-4 /hpf (0-2); Squamous Epithelial Cell Urine 0-4 /hpf (0-5); WBC Urine 0-4 /hpf (0-5)
--- NOTE | 2022-03-24 18:47 | XRR_ITS ---
PROCEDURE INFORMATION: Exam: XR Chest Exam date and time: 03/24/2022 6:52 PM Age: 62 years old Clinical indication: Shortness of breath; Additional info: SOB TECHNIQUE: Imaging protocol: Radiologic exam of the chest. Views: 1 view. COMPARISON: CT angio abd aorta runof [id number] 09/14/2017 10:20 AM FINDINGS: Lungs: Linear atelectasis or scar in the peripheral right lung. The left lung is clear. Pleural spaces: Unremarkable. No pleural effusion. No pneumothorax. Heart/Mediastinum: Unremarkable. No cardiomegaly. Diaphragm: Chronic elevation of the right diaphragm. Bones/joints: Unremarkable. XR/XR chest 1V portable [id number] IMPRESSION: No acute findings.
--- NOTE | 2022-03-24 21:00 | XRR_ITS ---
NOTE: Report was unsigned for reason: Order was edited. Original Signature date and time was: 03/24/2022 2140 PROCEDURE INFORMATION: Exam: XR Left Foot Exam date and time: 03/24/2022 9:25 PM Age: 62 years old Clinical indication: Edema and swelling, leg or foot; Yes, it is localized; Additional info: Pain and swelling TECHNIQUE: Imaging protocol: Radiologic exam of the Left foot. Views: 1 or 2 views. COMPARISON: CR (LOW EXM, ) 03/24/2022 9:13 PM FINDINGS: Bones/joints: Multiple screws intends transversing the subtalar joint with bony arthrodesis. Degenerative changes of the great toe MTP and IP joints. No fracture identified. Soft tissues: Mild dorsal soft tissue edema. MTDD XR/XR foot LT 2V [id number] IMPRESSION: No acute skeletal finding.
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
--- NOTE | 2022-03-24 21:05 | XRR_ITS ---
PROCEDURE INFORMATION: Exam: XR Left Tibia and Fibula Exam date and time: 03/24/2022 9:17 PM Age: 62 years old Clinical indication: Edema and swelling, leg or foot; Yes, it is localized TECHNIQUE: Imaging protocol: Radiologic exam of the Left tibia and fibula. Views: 2 views. COMPARISON: No relevant prior studies available. FINDINGS: Bones/joints: Multiple screws and plates in the proximal left tibia transversing an old healed depressed medial tibial plateau fracture. Degenerative changes of the medial knee compartment. Metal plate in the distal left fibula. Screw tracks in the left tibia. Degenerative changes of the ankle and subtalar joints. Soft tissues: Soft tissue bulge in the foot. XR/XR tibia fibula RT 2V [id number] IMPRESSION: 1. No acute fracture or bone destruction identified.
--- NOTE | 2022-03-24 21:05 | XRR_ITS ---
Addendum created by Puma Shane MD on 03/24/2022 9:47 PM Central Time ([place] & [place]): This exam was incorrectly entered as a LEFT foot x-ray series. This is actually an exam of the RIGHT foot. Initial Report created on 03/24/2022 9:40 PM Central Time ([place] & [place]): PROCEDURE INFORMATION: PROCEDURE INFORMATION: Exam: XR Left Foot Exam date and time: 03/24/2022 9:23 PM Age: 62 years old Clinical indication: Edema; Yes, it is localized; Additional info: Swelling TECHNIQUE: Imaging protocol: Radiologic exam of the Left foot. Views: 1 or 2 views. COMPARISON: CR (LOW EXM, ) 03/24/2022 9:17 PM FINDINGS: Bones/joints: Metal plate and screws in the distal left fibula. Age indeterminate fracture in the distal neck of the 5th metatarsal. Demineralization of the bones. Degenerative changes of the ankle and subtalar and intertarsal joints. Soft tissues: Diffuse soft tissue edema with large soft tissue bulge in the lateral foot. [facility] 2V [id number] IMPRESSION: 1. Age indeterminate fracture in the distal 5th metatarsal. Clinical correlation recommended. 2. Diffuse soft tissue edema with large soft tissue bulge in the lateral foot.
--- NOTE | 2022-03-24 21:05 | XRR_ITS ---
PROCEDURE INFORMATION: Exam: XR Left Tibia and Fibula Exam date and time: 03/24/2022 9:13 PM Age: 62 years old Clinical indication: Edema and swelling, leg or foot; Yes, it is localized; Prior surgery; Surgery date: 6+ months TECHNIQUE: Imaging protocol: Radiologic exam of the Left tibia and fibula. Views: 2 views. COMPARISON: No relevant prior studies available. FINDINGS: Bones/joints: Multiple screws in the calcaneus and talus with arthrodesis of the subtalar joint. Old screw tract in the distal diaphysis of the tibia. The bones are otherwise intact. No fracture identified. Soft tissues: Normal. XR/XR tibia fibula LT 2V [id number] IMPRESSION: No acute finding.
[2022-03-24] MEDS: piperacillin-tazobactam 3.375 GM in sodium chloride 0.9% (plus) 50 ML IV (21:11)
--- NOTE | 2022-03-24 21:11 | XRR_ITS ---
PROCEDURE INFORMATION: Exam: XR Left Foot Exam date and time: 03/24/2022 9:25 PM Age: 62 years old Clinical indication: Edema and swelling, leg or foot; Yes, it is localized; Additional info: Pain and swelling TECHNIQUE: Imaging protocol: Radiologic exam of the Left foot. Views: 1 or 2 views. COMPARISON: CR (LOW EXM, ) 03/24/2022 9:13 PM FINDINGS: Bones/joints: Multiple screws intends transversing the subtalar joint with bony arthrodesis. Degenerative changes of the great toe MTP and IP joints. No fracture identified. Soft tissues: Mild dorsal soft tissue edema.
[2022-03-24 21:35] LABS: ABG PCO2 41.4 mmHg (35-45); ABG PH Result 7.38 (7.35-7.45); Arterial Blood Gas Hematocrit 43.7 % (42-52); Base Excess ABG -0.9 mmol/L (-2.0-2.0); Blood Gas Allen Test Pos; Blood Gas Sample Type Arterial; HCO3 ABG 24.3 mmol/L (22-26)
[2022-03-24 21:36] LABS: Blood Gas Operator Identificat MONRO; Blood Gas Sample Site Radial, left; Oxygen Device NC
[2022-03-24 21:38] LABS: Lactate (Lactic Acid level) 0.8 mmol/L (0.5-2.2)
[2022-03-24 22:08] VITALS: BP 164/81; PULSE 90; RESP 18; TEMP 37.3; O2SAT 94
[2022-03-24 22:15] LABS: Glucose Point of Care 146 mg/dL (70-110)
[2022-03-24] MEDS: vancomycin 1,000 MG in sodium chloride 0.9% 250 ML 250 MG IV (23:06)
[2022-03-24 23:34] VITALS: O2SAT 97
[2022-03-24 23:38] VITALS: PULSE 87; RESP 20; O2SAT 94
[2022-03-24 23:42] VITALS: PULSE 88; RESP 21; O2SAT 95
[2022-03-24] MEDS: pantoprazole 40 mg SDV IVP (23:45)
[2022-03-24] MEDS: enoxaparin 40 mg/0.4 mL Syringe SUBCUT (23:45)
[2022-03-25] VITALS (9 sets, daily range): BP systolic 151–165; BP diastolic 79–91; PULSE 81–90; RESP 10–21; TEMP 36.5–37.6; O2SAT 88–96
[2022-03-25] MEDS: ipratropium-albuterol 3 mL Neb INHALATION (04:02)
[2022-03-25 05:35] LABS: Basophils # 0.1 10^3/uL (0.0-0.1); Basophils % 0.4 %; Eosinophils % 0.1 %; Hematocrit 43.3 % (42.0-52.0); Hemoglobin 13.8 g/dL (11.7-16.6); Lymphocytes # 2.8 10^3/uL (0.8-4.8); Lymphocytes % 14.3 %; Mean Corpuscular HGB Conc 31.9 g/dL (30.0-36.0); Mean Corpuscular Hemoglobin 32.5 pg (28.0-34.0); Mean Corpuscular Volume 101.9 fl (80-94); Mean Platelet Volume 11.8 fL (7.4-10.4); Monocytes # 2.1 10^3/uL (0.2-0.9); Monocytes % 10.4 %; Neutrophils # 14.33 10^3/uL (1.8-7.7); Neutrophils % 72.2 %; Nucleated Red Blood Cells % 0 %; Platelet Count 195 10^3/cmm (130-400); Red Blood Count 4.25 10^6/uL (4.1-5.3); Red Cell Distribution Width 14.6 % (12.1-15.1); White Blood Count 19.8 10^3/uL (4.0-10.0)
[2022-03-25 05:48] LABS: Estmated Average Glucose 169; Hemoglobin A1C 7.5 % (4.0-6.0)
[2022-03-25 05:53] LABS: Alanine Aminotransferase 10 U/L (0-41); Albumin Level 2.1 g/dL (3.5-5.2); Alkaline Phosphatase 104 U/L (40-130); Anion Gap 15.2 (5-19); Aspartate Amino Transferase 14 U/L (0-40); Blood Urea Nitrogen 30 mg/dL (8-23); Calcium 8.1 mg/dL (8.5-10.5); Carbon Dioxide 23 mmol/L (22-29); Chloride 101 mmol/L (98-107); Glomerular Filtration Rate 47.6 mL/min (90-130); Glucose 78 mg/dL (65-115); Magnesium 1.5 mg/dL (1.7-2.3); Osmolality Calculated 285 mOsm/kg (285-295); Phosphorus 3.3 mg/dL (2.5-4.5); Potassium 4.2 mmol/L (3.5-5.1); Sodium 135 mmol/L (136-145); Total Bilirubin 0.6 mg/dL (0.15-1.2); Total Protein 6.1 g/dL (6.6-8.7)
[2022-03-25 06:22] LABS: Glucose Point of Care 87 mg/dL (70-110)
[2022-03-25 06:25] LABS: NT Pro B Type Natriuretic Pept 3410 pg/mL (0-125); Procalcitonin 3.97 ng/mL (0-0.5)
[2022-03-25 06:49] LABS: Thyroid Stimulating Hormone 1.45 uIU/mL (0.27-4.20)
[2022-03-25] MEDS: perflutren protein-a microsphr 0.22 mg/mL SDV 3 mL IV (06:51)
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
[2022-03-25] MEDS: clopidogrel 75 mg Tablet PO (08:40)
[2022-03-25] MEDS: pregabalin 150 mg Capsule PO ×2 (08:40→17:43)
[2022-03-25] MEDS: atorvastatin 40 mg Tablet 20 MG PO (08:40)
[2022-03-25] MEDS: FUROsemide 10 mg/mL SDV 4mL 40 MG IVP (08:40)
[2022-03-25] MEDS: aspirin 81 mg EC Tablet PO (08:41)
[2022-03-25 09:05] LABS: C Reactive Protein 404.2 mg/L (0.0-4.9)
[2022-03-25 11:47] LABS: Glucose Point of Care 129 mg/dL (70-110)
--- NOTE | 2022-03-25 12:16 | PM.PN ---
Subjective Subjective: Patient is stating that since his surgery his legs have been swollen, he only has 30 degrees of knee flexion on left side, he is wheelchair-bound, uses a cane on ambulation, does not use oxygen at home, no previous history of sleep apnea or heart failure Right now he is on 3 L No active shortness of breath or chest pain Active wheezing He wants to go home I did financial aid counselor him to stay here until Sunday because we need to optimize his medications clinically he is not stable to return home at this point, is in agreement His knee surgeries were done at [facility] Vitals/I&O/Wt Last Vital Signs Temp 99.7 F H 03/25/22 08:00 Pulse 87 03/25/22 08:00 Resp 10 L 03/25/22 08:00 BP 162/79 03/25/22 08:00 Pulse Ox 89 L 03/25/22 08:00 O2 Del Method 03/25/22 08:00 O2 Flow Rate 3 03/25/22 04:03 FiO2 40 03/24/22 23:42 03/24/22 03/25/22 03/25/22 22:59 06:59 14:59 Intake Total 50 / 50 490 / 540 240 / 240 Balance 50 / 50 490 / 540 240 / 240 Weight last 48 hrs Weight 147.418 kg Physical Exam Narrative: Pleasant cooperative male Awake and alert Active signs of CHF exacerbation Cardiac wheezing Abdomen distended Seems to have sleep apnea as well Currently on 3 L No active chest pain or shortness of breath Bilateral lower extremity swelling Left knee swelling is worse than right Left knee also seems warm, no significant tenderness Nonpurulent cellulitis around luz extending up to his knee Pedal edema 3+ Data : 03/25/22 05:22 03/25/22 05:22 Micro: Microbiology 03/24/22 19:18 Blood Culture - Preliminary Blood SPECIMEN COLLECTED 03/24/22 19:18 Blood Culture - Preliminary Blood SPECIMEN COLLECTED A&P Assessment and plan (1) Post-traumatic osteoarthritis of left knee: Status: Acute (2) Cellulitis: Status: Acute (3) CHF exacerbation: Status: Acute (4) Diastolic CHF: Status: Acute (5) PVD (peripheral vascular disease): Status: Acute (6) Severe arterial insufficiency of lower extremity: Status: Acute (7) Infected stasis ulcer of lower extremity: Status: Acute (8) Foot ulcer, limited to breakdown of skin: Status: Acute Qualifiers: Laterality: bilateral Qualified Code(s): L97.511 - Non-pressure chronic ulcer of other part of right foot limited to breakdown of skin; L97.521 - Non-pressure chronic ulcer of other part of left foot limited to breakdown of skin (9) GERD (gastroesophageal reflux disease): Status: Acute (10) Diabetic neuropathy associated with diabetes mellitus due to underlying condition: Status: Acute (11) Diabetes mellitus, type II, insulin dependent: Status: Chronic Plan 62-year-old male presented for worsening of left knee pain, who has had multiple orthopedic surgeries in the past at [facility], has peripheral arterial disease, takes aspirin and Plavix, no previous diagnosis of sleep apnea or heart failure, does not use oxygen Acute diastolic CHF exacerbation I will increase the dose of Lasix to 60 mg IV every 12 Will follow up with echo Patient does appear to have cardiac wheezing Clinically fluid overloaded I would like to give him sleep apnea prescription at the time of discharge Currently he is on 3 L Acute hypoxia secondary to CHF exacerbation Currently on 2 L Increased diuretics Watch for contraction alkalosis Left knee swelling, Severe leukocytosis, warm to touch, concern for septic joint Will follow-up with orthopedics recommendation Multiple arthrocentesis attempts unsuccessful in the ER I will keep him on vancomycin for now along Zosyn The reason I am using broad-spectrum antibiotics is because of his chronic bilateral extremity swelling with nonpurulent cellulitis with underlying diabetes Type 2 diabetes Target goal 140s 180 mg/dL during hospitalization Check A1c level Hypertension peripheral vascular disease No active chest pain Continue dual antiplatelet therapy DVT prophylaxis Lovenox Patient is full code He wanted to go home however agreeable to stay until Sunday, is in agreement Active smoker, COPD exacerbation no previous diagnosis of COPD Never had PFTs Currently on 3 L Active smoker June Attjudy Medical Necessity Statement*: Patient will stay till Sunday Time Spent in Patient Care: 40 Coding Level of Care Code Acute Knowledge Analyst for Chg Fwd Diagnoses Post-traumatic osteoarthritis of left knee M17.32 Cellulitis L03.90 CHF exacerbation I50.9 Diastolic CHF I50.30 PVD (peripheral vascular disease) I73.9 Severe arterial insufficiency of lower extremity I73.9 Infected stasis ulcer of lower extremity I83.209; L97.909 Foot ulcer, limited to breakdown of skin L97.511; L97.521 Laterality: bilateral GERD (gastroesophageal reflux disease) K21.9 Diabetic neuropathy associated with diabetes mellitus due to underlying condition E08.40 Diabetes mellitus, type II, insulin dependent E11.9; Z79.4
[2022-03-25] MEDS: vancomycin 1,500 MG/300 ML PIGGYBACK 200 MG IV (13:36)
[2022-03-25] MEDS: piperacillin-tazobactam 3.375 GM in sodium chloride 0.9% (plus) 50 ML IV ×2 (13:39→20:44)
[2022-03-25 13:42] LABS: Bacillus cereus group Not Detected (NOT DETECT); Bacillus subtillis group Not Detected (NOT DETECT); Corynebacterium Not Detected (NOT DETECT); Cutibacterium acnes (P.acnes) Not Detected (NOT DETECT); Enterococcus Not Detected (NOT DETECT); Enterococcus faecalis Not Detected (NOT DETECT); Enterococcus faecium Not Detected (NOT DETECT); Lactobacillus species Not Detected (NOT DETECT); Listeria Not Detected (NOT DETECT); Listeria monocytogenes Not Detected (NOT DETECT); Micrococcus Not Detected (NOT DETECT); Pan Candida Not Detected (NOT DETECT); Pan Gram-Negative Not Detected (NOT DETECT); Staphylococcus epidermidis Not Detected (NOT DETECT); Staphylococcus lugdunensis Not Detected (NOT DETECT); Staphylococcus species Not Detected (NOT DETECT); Streptococcus agalactiae Detected (NOT DETECT); Streptococcus anginosus group Not Detected (NOT DETECT); Streptococcus pneumoniae Not Detected (NOT DETECT); Streptococcus pyogenes Not Detected (NOT DETECT); Streptococcus species Detected (NOT DETECT)
[2022-03-25] MEDS: TRAMadol 50 mg Tablet PO ×2 (13:49→20:49)
[2022-03-25] MEDS: FUROsemide 10 mg/mL SDV 10mL 60 MG IVP (15:51)
[2022-03-25] MEDS: nicotine 14 mg Patch 1 PATCH TRANSDERMA (16:04)
[2022-03-25 18:01] LABS: Glucose Point of Care 115 mg/dL (70-110)
[2022-03-25] MEDS: ALPRAZolam 0.5 mg Tablet 0.25 MG PO (20:49)
--- NOTE | 2022-03-25 21:09 | USCV_ITS ---
Tyrese Forrest Age: 62 Gender: M : 1960 Exam Date: 03/25/2022 02:06 Ordering Phys: Ramon Nelson MD Technologist: Khai Olivia [place] [facility] [place]: Short of breath BP: 165 / 91 HR: 87 Rhythm: Sinus Technical Quality: Very technically difficult study MEASUREMENTS (Male / Female) Normal Values 2D ECHO LV Diastolic Diameter PLAX 6.8 cm 4.2 - 5.9 / 3.9 - 5.3 cm LV Systolic Diameter PLAX 5.1 cm IVS Diastolic Thickness 2.4 cm 0.6 - 1.0 / 0.6 - 0.9 cm IVS Systolic Thickness 1.9 cm LVPW Diastolic Thickness 2.0 cm 0.6 - 1.0 / 0.6 - 0.9 cm LVPW Systolic Thickness 1.8 cm LVOT Diameter 2.2 cm LV Ejection Fraction 2D Teich 60.0 % LV Ejection Fraction MOD 2C 67.3 % LV Ejection Fraction 2C AL 66.4 % LA Diameter 4.7 cm LA Width 6.3 cm LA Height 6.7 cm Aorta at Sinotubular Diameter 1.8 cm IVC Diameter 1.6 cm M-MODE Aortic Annulus Diameter 3.0 cm LA Ao Ratio MM 1.8 DOPPLER AV Peak Velocity 103.0 cm/s LVOT Peak Velocity 74.0 cm/s AV Area Cont Eq vti 2.5 cm squared AV Area Cont Eq pk 2.8 cm squared MV Area PHT 5.0 cm squared Mitral E to A Ratio 0.6 MV E' Velocity 72.0 cm/s FINDINGS Left Ventricle This study is technically extremely poor. Without intravenous contrast the study is uninterpretable. With contrast, the ventricle appears to be normal in size to slightly enlarged. Wall motion disturbances cannot be detected or evaluated. The overall left ventricular function is probably lower limit of normal. Diastolic function cannot be evaluated. Right Ventricle Right ventricle not well visualized. Right Atrium Right atrium not well visualized. Left Atrium Left atrium not well visualized. Mitral Valve Mitral valve not well visualized. Aortic Valve Aortic valve not well visualized. Tricuspid Valve Tricuspid valve not well visualized. Pulmonic Valve Pulmonic valve not well visualized. Pericardium Pericardium is not visualized. Aorta Aorta not well visualized. IVC Inferior vena cava not visualized. CONCLUSIONS This study is technically extremely poor. Without intravenous contrast the study is uninterpretable. With contrast, the ventricle appears to be normal in size to slightly enlarged. Wall motion disturbances cannot be detected or evaluated. The overall left ventricular function is probably lower limit of normal. Diastolic function cannot be evaluated. Dr. Frank Mcknight MD (Electronically Signed) Final Date: 25 March 2022 09:04 S
[2022-03-25 22:02] LABS: Glucose Point of Care 102 mg/dL (70-110)
[2022-03-25] MEDS: enoxaparin 40 mg/0.4 mL Syringe SUBCUT (22:08)
[2022-03-25] MEDS: pantoprazole 40 mg SDV IVP (22:08)
[2022-03-26] VITALS (10 sets, daily range): BP systolic 164–192; BP diastolic 72–98; PULSE 72–82; RESP 14–20; TEMP 36.6–37; O2SAT 90–94
[2022-03-26 05:01] LABS: Basophils # 0.1 10^3/uL (0.0-0.1); Basophils % 0.4 %; Eosinophils # 0.1 10^3/uL (0.0-0.8); Eosinophils % 0.4 %; Hematocrit 42.1 % (42.0-52.0); Hemoglobin 13.4 g/dL (11.7-16.6); Lymphocytes # 2.7 10^3/uL (0.8-4.8); Lymphocytes % 16.8 %; Mean Corpuscular HGB Conc 31.8 g/dL (30.0-36.0); Mean Corpuscular Hemoglobin 32.3 pg (28.0-34.0); Mean Corpuscular Volume 101.4 fl (80-94); Monocytes % 12.7 %; Neutrophils # 10.86 10^3/uL (1.8-7.7); Neutrophils % 68.6 %; Nucleated Red Blood Cells % 0 %; Platelet Count 231 10^3/cmm (130-400); Red Blood Count 4.15 10^6/uL (4.1-5.3); Red Cell Distribution Width 14.7 % (12.1-15.1); White Blood Count 15.9 10^3/uL (4.0-10.0)
[2022-03-26 05:27] LABS: NT Pro B Type Natriuretic Pept 3044 pg/mL (0-125); Procalcitonin 2.78 ng/mL (0-0.5)
[2022-03-26] MEDS: TRAMadol 50 mg Tablet PO ×2 (06:04→12:15)
[2022-03-26] MEDS: FUROsemide 10 mg/mL SDV 10mL 60 MG IVP (06:05)
[2022-03-26] MEDS: piperacillin-tazobactam 3.375 GM in sodium chloride 0.9% (plus) 50 ML IV ×3 (06:07→21:21)
[2022-03-26 06:18] LABS: Glucose Point of Care 76 mg/dL (70-110)
[2022-03-26 06:52] LABS: Alanine Aminotransferase 11 U/L (0-41); Albumin Level 2.1 g/dL (3.5-5.2); Alkaline Phosphatase 134 U/L (40-130); Anion Gap 14.8 (5-19); Aspartate Amino Transferase 24 U/L (0-40); Blood Urea Nitrogen 29 mg/dL (8-23); Calcium 8.3 mg/dL (8.5-10.5); Carbon Dioxide 26 mmol/L (22-29); Chloride 99 mmol/L (98-107); Globulin 4.3 g/dL (1.3-4.6); Glomerular Filtration Rate 51.5 mL/min (90-130); Glucose 68 mg/dL (65-115); Magnesium 1.6 mg/dL (1.7-2.3); Osmolality Calculated 286 mOsm/kg (285-295); Potassium 3.8 mmol/L (3.5-5.1); Sodium 136 mmol/L (136-145); Total Bilirubin 0.8 mg/dL (0.15-1.2); Total Protein 6.4 g/dL (6.6-8.7)
[2022-03-26] MEDS: vancomycin 1,500 MG/300 ML PIGGYBACK 200 MG IV ×2 (07:07→18:31)
[2022-03-26 07:22] LABS: C Reactive Protein 368.8 mg/L (0.0-4.9)
[2022-03-26] MEDS: atorvastatin 40 mg Tablet 20 MG PO (08:59)
[2022-03-26] MEDS: clopidogrel 75 mg Tablet PO (08:59)
[2022-03-26] MEDS: pregabalin 150 mg Capsule PO ×2 (09:00→17:30)
[2022-03-26] MEDS: nicotine 14 mg Patch 1 PATCH TRANSDERMA (09:01)
[2022-03-26 11:06] LABS: Glucose Point of Care 103 mg/dL (70-110)
[2022-03-26] MEDS: aspirin 81 mg EC Tablet PO (11:16)
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
--- NOTE | 2022-03-26 14:01 | PM.PN ---
Subjective Subjective: No active complaints patient is endorsing feeling better, he is currently on room air Creatinine improved Adequate urine output Diuretics dose decreased from IV to p.o. Orthopedics did not plan for any surgical intervention No sign of septic joint Currently on antibiotics IV Afebrile Family meeting conducted at the bedside There is some confusion regarding his foot fracture, I will repeat x-ray of his left foot he is complaining of pain in his left foot instead of right Vitals/I&O/Wt Last Vital Signs Temp 98.2 F 03/26/22 12:00 Pulse 81 03/26/22 12:00 Resp 17 03/26/22 12:00 BP 164/72 03/26/22 12:00 Pulse Ox 94 03/26/22 12:00 O2 Del Method 03/26/22 12:00 O2 Flow Rate 2 03/26/22 12:00 FiO2 40 03/24/22 23:42 03/25/22 03/26/22 03/26/22 22:59 06:59 14:59 Intake Total 350 / 830 1010 / 1840 1070 / 1070 Output Total 850 / 850 2050 / 2900 Balance -500 / -20 -1040 / -1060 1070 / 1070 Weight last 48 hrs Weight 147.418 kg Physical Exam Narrative: Morbid obese male Clinically is fluid overloaded However has extremely dry cracked lips with dry mucous membranes Awake and alert Pain of knees better however he is complaining of some pain in his left foot Cellulitis of anterior luz which is extending up to his knee has not worsened no active purulent drainage Currently awake and alert Currently on room air Abdomen is distended nontender at the bedside Urinary Catheter Management: Flanagan: Cath Placed During This Visit: yes Reason for Continuing Indwelling Catheter: Other Urinary Catheter Date of Insertion: 03/25/22 Urinary Catheter Time of Insertion: 15:00 Data : 03/26/22 04:21 03/26/22 06:14 Micro: Microbiology 03/24/22 19:18 Blood Culture - Preliminary Blood NEGATIVE TO DATE 03/24/22 19:18 Blood Culture - Preliminary Blood Strep agalactiae - (group b) A&P Assessment and plan (1) Post-traumatic osteoarthritis of left knee: Status: Acute (2) Cellulitis: Status: Acute (3) CHF exacerbation: Status: Acute (4) Diastolic CHF: Status: Acute (5) Tobacco abuse counseling: Status: Acute (6) Nonhealing skin ulcer: Status: Acute (7) PVD (peripheral vascular disease): Status: Acute (8) Skin ulcers of foot, bilateral: Status: Acute (9) Lymphedema: Status: Acute (10) GERD (gastroesophageal reflux disease): Status: Acute (11) Diabetic neuropathy associated with diabetes mellitus due to underlying condition: Status: Acute (12) Diabetes mellitus, type II, insulin dependent: Status: Chronic Plan Hospital course 62-year male who presented to the hospital for worsening of his left knee pain there was initially concern for septic joint multiple attempts were unsuccessful, orthopedics was consulted who recommended medical management for now there is some confusion regarding fifth metatarsal fracture I am repeating his x-ray today, he was diuresed aggressively during his hospitalization, I was able to wean him off oxygen to room air he does not use oxygen at home at all requested PT he might benefit from home health services And has had multiple surgeries of his joints at [facility], is stating that if surgical intervention is indicated they would prefer [place] Assessment and plan for today Acute diastolic CHF exacerbation likely due to undiagnosed underlying sleep apnea Bilateral leg swelling However echo is uninterpretable but his EF seems to be low normal side I would treat him as diastolic congestive heart failure exacerbation, he will need sleep study outpatient does endorse snoring No need to trend BNP Will like to get to get twelve-lead EKG today Acute on chronic kidney disease: Creatinine seems around baseline, improved with IV diuresis cut back on IV diuretics and use p.o. now onwards Left knee pain related to osteoarthritis No sign of septic joint Fifth metatarsal fracture I have contacted Dr. Meyer to take a look at his x-rays, and repeating x-ray of his left foot Patient is complaining of pain in his left foot as well instead of right Participating with PT Nonpurulent cellulitis of left leg Most likely etiology is venous stasis dermatitis with skin opening that has contributed to this cellulitis episode Since he is diabetic I am covering him with broad-spectrum antibiotics, white count has improved to 15.9 today, he has been afebrile, cultures showing group B strep We will repeat blood cultures, continue IV broad-spectrum antibiotics for now, target Vanco trough level between 15-20 No signs of DVT Procalcitonin trending down He does have open wounds on his toes on left I do not see any active signs of vascular ischemia We will get an arterial Doppler Cardiac consistent carb diet Type II diabetic, glucose has been in good range, hemoglobin A1c 7.5, I am using Lantus 30 mg twice daily instead of 35 which she takes at home of Levemir Will need home health services Full code Consistent cardiac carb diet DVT prophylaxis on board Attestations Medical Necessity Statement*: Patient could be discharged once bacteremia clears Time Spent in Patient Care: 40 Coding Level of Care Code Acute Marketing Designer for g Fwd Diagnoses Post-traumatic osteoarthritis of left knee M17.32 Cellulitis L03.90 CHF exacerbation I50.9 Diastolic CHF I50.30 Tobacco abuse counseling Z71.6 Nonhealing skin ulcer L98.499 PVD (peripheral vascular disease) I73.9 Skin ulcers of foot, bilateral L97.519; L97.529 Lymphedema I89.0 GERD (gastroesophageal reflux disease) K21.9 Diabetic neuropathy associated with diabetes mellitus due to underlying condition E08.40 Diabetes mellitus, type II, insulin dependent E11.9; Z79.4
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
--- NOTE | 2022-03-26 14:55 | ECG_ITS ---
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 Measurements Intervals Marissa Rate: 75 P: 72 SC: 198 QRS: -28 QRSD: 104 T: 31 QT: 384 QTc: 430 Interpretive Statements SINUS RHYTHM ANTEROSEPTAL MYOCARDIAL INFARCTION , PROBABLY OLD [40+ ms Q WAVE IN V1-V4] No previous ECG available for comparison Electronically Signed On 03-26-2022 18:16:22 CDT by Frank Mcknight M.D. [id number]
[2022-03-26 16:54] LABS: Glucose Point of Care 102 mg/dL (70-110)
[2022-03-26] MEDS: acetaminophen 325 mg Tablet 650 MG PO (20:17)
[2022-03-26] MEDS: pantoprazole 40 mg SDV IVP (21:19)
[2022-03-26 21:30] LABS: Glucose Point of Care 80 mg/dL (70-110)
[2022-03-26] MEDS: enoxaparin 40 mg/0.4 mL Syringe SUBCUT (23:27)
[2022-03-27] VITALS (12 sets, daily range): BP systolic 158–178; BP diastolic 72–90; PULSE 65–76; RESP 13–22; TEMP 36.8–37; O2SAT 91–95
[2022-03-27] MEDS: piperacillin-tazobactam 3.375 GM in sodium chloride 0.9% (plus) 50 ML IV ×3 (05:08→20:52)
[2022-03-27 06:42] LABS: Glucose Point of Care 65 mg/dL (70-110)
[2022-03-27 06:50] LABS: Basophils # 0.1 10^3/uL (0.0-0.1); Basophils % 0.4 %; Eosinophils # 0.2 10^3/uL (0.0-0.8); Eosinophils % 1.2 %; Hematocrit 43.2 % (42.0-52.0); Hemoglobin 14.2 g/dL (11.7-16.6); Lymphocytes # 2.7 10^3/uL (0.8-4.8); Lymphocytes % 17.1 %; Mean Corpuscular HGB Conc 32.9 g/dL (30.0-36.0); Mean Corpuscular Hemoglobin 32.6 pg (28.0-34.0); Mean Corpuscular Volume 99.3 fl (80-94); Mean Platelet Volume 11.6 fL (7.4-10.4); Monocytes # 1.9 10^3/uL (0.2-0.9); Monocytes % 12.1 %; Neutrophils # 10.86 10^3/uL (1.8-7.7); Neutrophils % 68.4 %; Nucleated Red Blood Cells % 0 %; Platelet Count 276 10^3/cmm (130-400); Red Blood Count 4.35 10^6/uL (4.1-5.3); Red Cell Distribution Width 14.6 % (12.1-15.1); White Blood Count 15.9 10^3/uL (4.0-10.0)
[2022-03-27 07:15] LABS: Vancomycin Trough 20.2 ug/mL (10-15)
[2022-03-27 07:35] LABS: Alanine Aminotransferase 14 U/L (0-41); Albumin Level 2.1 g/dL (3.5-5.2); Alkaline Phosphatase 182 U/L (40-130); Anion Gap 14.5 (5-19); Aspartate Amino Transferase 35 U/L (0-40); Blood Urea Nitrogen 28 mg/dL (8-23); Calcium 8.7 mg/dL (8.5-10.5); Carbon Dioxide 27 mmol/L (22-29); Chloride 97 mmol/L (98-107); Globulin 4.6 g/dL (1.3-4.6); Glomerular Filtration Rate 61.6 mL/min (90-130); Glucose 60 mg/dL (65-115); Magnesium 1.7 mg/dL (1.7-2.3); Osmolality Calculated 283 mOsm/kg (285-295); Phosphorus 3.7 mg/dL (2.5-4.5); Potassium 3.5 mmol/L (3.5-5.1); Sodium 135 mmol/L (136-145); Total Bilirubin 0.6 mg/dL (0.15-1.2); Total Protein 6.7 g/dL (6.6-8.7)
[2022-03-27 07:58] LABS: Glucose Point of Care 57 mg/dL (70-110)
[2022-03-27 08:00] LABS: NT Pro B Type Natriuretic Pept 4026 pg/mL (0-125); Procalcitonin 1.76 ng/mL (0-0.5)
[2022-03-27] MEDS: nicotine 14 mg Patch 1 PATCH TRANSDERMA (08:30)
[2022-03-27] MEDS: atorvastatin 40 mg Tablet 20 MG PO (08:32)
[2022-03-27] MEDS: TRAMadol 50 mg Tablet PO ×2 (08:32→22:47)
[2022-03-27] MEDS: aspirin 81 mg EC Tablet PO (08:33)
[2022-03-27] MEDS: clopidogrel 75 mg Tablet PO (08:33)
[2022-03-27] MEDS: acetaminophen 325 mg Tablet 650 MG PO ×2 (08:33→19:50)
[2022-03-27] MEDS: pregabalin 150 mg Capsule PO ×2 (08:34→17:43)
[2022-03-27 08:39] LABS: Glucose Point of Care 90 mg/dL (70-110)
[2022-03-27 11:10] LABS: Glucose Point of Care 164 mg/dL (70-110)
[2022-03-27] MEDS: vancomycin 1,500 MG/300 ML PIGGYBACK 200 MG IV (12:16)
--- NOTE | 2022-03-27 12:31 | PC.OT ---
OT TREATMENT HELD THIS A.M. DUE TO PENDING CONSULT WITH ORTHOPEDIC; WILL AWAIT THIS.
--- NOTE | 2022-03-27 14:42 | PC.SOCIAL ---
IMM Update pg 2 of IMM updated and reviewed w/ patient. Copy provided. Copy dated, initialed and placed in chart.
[2022-03-27 17:04] LABS: Glucose Point of Care 142 mg/dL (70-110)
--- NOTE | 2022-03-27 18:23 | PM.PN ---
Subjective Subjective: Still complains of pain left leg. Left knee no worse than baseline. Denies any pain left foot. Vitals/I&O/Wt Last Vital Signs Temp 98.2 F 03/27/22 15:58 Pulse 68 03/27/22 18:07 Resp 16 03/27/22 15:58 BP 175/78 03/27/22 15:58 Pulse Ox 93 03/27/22 15:58 O2 Del Method 03/27/22 15:58 O2 Flow Rate 2.5 03/27/22 04:00 FiO2 40 03/24/22 23:42 03/27/22 03/27/22 03/27/22 06:59 14:59 22:59 Intake Total 290 / 2070 950 / 950 360 / 1310 Output Total 650 / 3625 Balance -360 / -1555 950 / 950 360 / 1310 Physical Exam Narrative: Larger left leg with erythema over distal half tibia. No effusion in left knee. Left knee motion from 30 degrees short of full extension to 70 degrees of flexion. Swelling extends into the left foot but no tenderness over metatarsals Urinary Catheter Management: Flanagan: Cath Placed During This Visit: yes Reason for Continuing Indwelling Catheter: Accurate Measurement of Urinary Output in Critically Ill Patients Urinary Catheter Date of Insertion: 03/25/22 Urinary Catheter Time of Insertion: 15:00 Data : 03/27/22 06:34 03/27/22 06:34 Micro: Microbiology 03/26/22 14:54 Blood Culture - Preliminary Blood NEGATIVE TO DATE 03/26/22 15:01 Blood Culture - Preliminary Blood NEGATIVE TO DATE 03/24/22 19:18 Blood Culture - Preliminary Blood Strep agalactiae - (group b) Xray Ortho: My impression: 2 views of the right foot are interpreted dated 03/26/2022. The patient has nondisplaced fractures of his right fourth and fifth metacarpal necks A&P Assessment and plan (1) Post-traumatic osteoarthritis of left knee: Left knee pain seems to have improved to baseline. He has severe posttraumatic degenerative changes. With his weight and medical comorbidities he is not a candidate for knee replacement. Status: Acute (2) Fracture of fourth metatarsal bone of left foot: Status: Acute (3) Fracture of fifth metatarsal bone of left foot: Metatarsal fractures are nondisplaced. He has no pain. He can be weightbearing as tolerated in a postop shoe. 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
[2022-03-27] MEDS: ALPRAZolam 0.5 mg Tablet 0.25 MG PO (19:51)
--- NOTE | 2022-03-27 20:08 | P.PN_ITS ---
Subjective Subjective: Erythema in left lower extremity has been less intense. Still pain in pretty much entire left leg with moving or putting weight. With pain and deconditioning requiring multi-person assist. No chest pain or pressure. No trouble breathing. Vitals/I&O/Wt Last Vital Signs Temp 98.2 F 03/27/22 15:58 Pulse 68 03/27/22 18:07 Resp 18 03/27/22 19:53 BP 175/78 03/27/22 15:58 Pulse Ox 93 03/27/22 15:58 O2 Del Method 03/27/22 15:58 O2 Flow Rate 2.5 03/27/22 04:00 FiO2 40 03/24/22 23:42 03/27/22 03/27/22 03/27/22 06:59 14:59 22:59 Intake Total 290 / 2070 950 / 950 410 / 1360 Output Total 650 / 3625 Balance -360 / -1555 950 / 950 410 / 1360 Physical Exam Narrative: Accompanied by his spouse. Sitting up at edge of bed. Const: COMMON NORMALS: patient oriented x3 and alert GENERAL APPEARANCE: cooperative ORIENTATION/CONSCIOUSNESS: Yes awake HENMT: COMMON NORMALS: oropharynx normal Neck/C-Spine: COMMON NORMALS: no JVD Resp: COMMON NORMALS: normal respiratory effort and clear to auscultation bilaterally AUSCULTATION: clear to auscultation bilaterally Cardio: COMMON NORMALS: no JVD, regular rhythm, S1 normal heart sound present, S2 normal heart sound present and No murmurs present (Cardio) RHYTHM: regular rhythm HEART SOUNDS: S1 normal heart sound present and S2 normal heart sound present GI: COMMON NORMALS: Normal to inspection, nondistended, normoactive bowel so unds present, Soft to palpation and non-tender PALPATION: Yes Soft to pal pation Extremity: COMMON NORMALS: no joint enlargement and no pedal edema OTHER: BL LE sweling, LLE>RLE Neuro: COMMON NORMALS: patient oriented x3 and moves all extremities SENSORIUM/ORIENTATION: Yes alert Skin: COMMON NORMALS: no rashes or lesions noted GENERAL SKIN EXAM: no rashes or lesions noted OTHER: BL stasis changes lower extremities Dull irregular erythema LLE below the knee. Less on the right side. Urinary Catheter Management: Flanagan: Cath Placed During This Visit: yes Reason for Continuing Indwelling Catheter: Accurate Measurement of Urinary Output in Critically Ill Patients Urinary Catheter Date of Insertion: 03/25/22 Urinary Catheter Time of Insertion: 15:00 Data : 03/27/22 06:34 03/27/22 06:34 Micro: Microbiology 03/26/22 14:54 Blood Culture - Preliminary Blood NEGATIVE TO DATE 03/26/22 15:01 Blood Culture - Preliminary Blood NEGATIVE TO DATE 03/24/22 19:18 Blood Culture - Preliminary Blood Strep agalactiae - (group b) A&P Assessment and plan (1) Cellulitis: Persistent leukocytosis 15.9. Follow-up repeat blood cultures. For now continue empiric intravenous antibiotics. Discussed with him and his to elevate lower extremities as tolerating. Status: Acute (2) Post-traumatic osteoarthritis of left knee: Status: Acute (3) CHF exacerbation: Persistent bilateral lower extremity edema, worse on the left. IV diuretics. Change to cardiac diet. Fluid restrict to 1500 mL. Status: Acute (4) Diastolic CHF: Status: Acute (5) Tobacco abuse counseling: Status: Acute (6) Nonhealing skin ulcer: Status: Acute (7) PVD (peripheral vascular disease): Status: Acute (8) Skin ulcers of foot, bilateral: Status: Acute (9) Lymphedema: Status: Acute (10) GERD (gastroesophageal reflux disease): Status: Acute (11) Diabetic neuropathy associated with diabetes mellitus due to underlying condition: Status: Acute (12) Diabetes mellitus, type II, insulin dependent: Status: Chronic (13) Fracture of fourth metatarsal bone of left foot: Status: Acute (14) Fracture of fifth metatarsal bone of left foot: Orthopedic recommendations appreciated, weightbearing as tolerated. Status: Acute Plan Acute on chronic kidney disease: improved Left knee pain related to osteoarthritis He does have open wounds on his toes on left: Elevated velocity in the right distal superficial femoral artery and in proximal aspirational femoral artery consistent with stenosis. LUPE 0.79. Will need outpatient follow-up. Hypoglycemia: Decrease Levemir to daily. Type II diabetic, glucose has been in good range, hemoglobin A1c 7.5, reduce Levemir dose. Continue sliding scale. CC diet. Decreased function: With deconditioning, pain, has been requiring multiple person assist. Home health care is being worked on, discussed consideration alf, however, he and family have declined so far. Continue to reassess as he does require significant assistance, may have a difficult time even getting into the truck to get back home. Weightbearing as tolerated. Attestations Medical Necessity Statement*: Continue admission of cellulitis, CHF exacerbation, functional decline with deconditioning, pain of left lower extremity with arthritis, as well as left foot fractures. Coding Level of Care Code Acute Crystalizer Tender for [facility] Fwd Diagnoses Cellulitis L03.90 Post-traumatic osteoarthritis of left knee M17.32 CHF exacerbation I50.9 Diastolic CHF I50.30 Tobacco abuse counseling Z71.6 Nonhealing skin ulcer L98.499 PVD (peripheral vascular disease) I73.9 Skin ulcers of foot, bilateral L97.519; L97.529 Lymphedema I89.0 GERD (gastroesophageal reflux disease) K21.9 Diabetic neuropathy associated with diabetes mellitus due to underlying condition E08.40 Diabetes mellitus, type II, insulin dependent E11.9; Z79.4 Fracture of fourth metatarsal bone of left foot S92.342A Fracture of fifth metatarsal bone of left foot S92.352A
[2022-03-27 21:05] LABS: Glucose Point of Care 271 mg/dL (70-110)
[2022-03-27] MEDS: pantoprazole 40 mg SDV IVP (22:47)
[2022-03-27] MEDS: enoxaparin 40 mg/0.4 mL Syringe SUBCUT (22:48)
[2022-03-28] VITALS (9 sets, daily range): BP systolic 145–185; BP diastolic 68–89; PULSE 71–90; RESP 18–22; TEMP 36.6–36.8; O2SAT 90–99
[2022-03-28 05:04] LABS: Basophils # 0.1 10^3/uL (0.0-0.1); Basophils % 0.6 %; Eosinophils # 0.2 10^3/uL (0.0-0.8); Eosinophils % 1.2 %; Hematocrit 42.9 % (42.0-52.0); Hemoglobin 14.1 g/dL (11.7-16.6); Lymphocytes # 2.2 10^3/uL (0.8-4.8); Lymphocytes % 13.7 %; Mean Corpuscular HGB Conc 32.9 g/dL (30.0-36.0); Mean Corpuscular Hemoglobin 32.5 pg (28.0-34.0); Mean Corpuscular Volume 98.8 fl (80-94); Mean Platelet Volume 11.6 fL (7.4-10.4); Monocytes # 1.9 10^3/uL (0.2-0.9); Monocytes % 11.8 %; Neutrophils # 11.76 10^3/uL (1.8-7.7); Neutrophils % 71.7 %; Nucleated Red Blood Cells % 0 %; Platelet Count 309 10^3/cmm (130-400); Red Blood Count 4.34 10^6/uL (4.1-5.3); Red Cell Distribution Width 14.6 % (12.1-15.1); White Blood Count 16.4 10^3/uL (4.0-10.0)
[2022-03-28 05:33] LABS: Alanine Aminotransferase 15 U/L (0-41); Albumin Level 1.7 g/dL (3.5-5.2); Alkaline Phosphatase 244 U/L (40-130); Blood Urea Nitrogen 24 mg/dL (8-23); Calcium 8.8 mg/dL (8.5-10.5); Carbon Dioxide 27 mmol/L (22-29); Chloride 99 mmol/L (98-107); Globulin 4.8 g/dL (1.3-4.6); Glomerular Filtration Rate 68.1 mL/min (90-130); Glucose 125 mg/dL (65-115); Osmolality Calculated 282 mOsm/kg (285-295); Sodium 133 mmol/L (136-145); Total Bilirubin 0.5 mg/dL (0.15-1.2); Total Protein 6.5 g/dL (6.6-8.7)
[2022-03-28 05:34] LABS: Anion Gap 11.1 (5-19)
[2022-03-28 05:35] LABS: Aspartate Amino Transferase 32 U/L (0-40); Potassium 4.1 mmol/L (3.5-5.1)
[2022-03-28 06:28] LABS: Glucose Point of Care 146 mg/dL (70-110)
[2022-03-28] MEDS: vancomycin 1,500 MG/300 ML PIGGYBACK 200 MG IV (08:41)
[2022-03-28] MEDS: pregabalin 150 mg Capsule PO ×2 (08:44→16:13)
[2022-03-28] MEDS: nicotine 14 mg Patch 1 PATCH TRANSDERMA (08:44)
[2022-03-28] MEDS: atorvastatin 40 mg Tablet 20 MG PO (08:45)
[2022-03-28] MEDS: FUROsemide 10 mg/mL SDV 4mL 40 MG IVP (08:45)
[2022-03-28] MEDS: clopidogrel 75 mg Tablet PO (08:46)
[2022-03-28] MEDS: aspirin 81 mg EC Tablet PO (08:46)
[2022-03-28] MEDS: acetaminophen 325 mg Tablet 650 MG PO (10:12)
[2022-03-28] MEDS: TRAMadol 50 mg Tablet PO (10:12)
[2022-03-28] MEDS: piperacillin-tazobactam 3.375 GM in sodium chloride 0.9% (plus) 50 ML IV (11:09)
--- NOTE | 2022-03-28 11:21 | MR_ITS ---
WS: [id number] MRI OF THE LEFT FOOT WITHOUT GADOLINIUM ENHANCEMENT. INDICATION: Osteomyelitis TECHNIQUE: Exam is limited due to patient's inability to tolerate exam. Gadolinium was not administer ed. Images degraded by motion. Sagittal T1, sagittal STIR, axial T1, axial STIR, coronal T1 imaging w as obtained of the foot and ankle FINDINGS: Limited examination as described above. Osteopenia. Plantar calcaneal spurring. Advanced degenerative arthritis involving the hindfoot with f lattening of the talocalcaneal articulation with advanced joint space narrowing. Advanced arthritis t alonavicular articulation. Hammertoe deformities. Hallux valgus. Diffuse soft tissue edema involving the soft tissues of the lower leg and foot. Postoperative changes plate and screw fixation involving the distal fibula. Acute fracture of the LEFT 5th metatarsal neck with mild impaction and minimal displacement. Associat ed diffuse edema involving the 5th metatarsal shaft. Associated soft tissue edema. No other acute met atarsal fractures. Normal bone marrow signal in the 4th metatarsal. Suspected prior healed fracture 4 th metatarsal neck with slight concavity. Degenerative changes involving the MTP joints. Normal bone marrow signal involving the phalanges. MR/MR foot LT wo con* [id number] IMPRESSION: Limited examination as described above. 1. No evidence of osteomyelitis in the LEFT foot or ankle 2. Diffuse soft tissue edema. No drainable fluid collections. 3. Acute fracture with edema involving the 5th metatarsal neck with diffuse ed alison and mild impaction similar to the recent radiograph.
[2022-03-28 11:31] LABS: Glucose Point of Care 172 mg/dL (70-110)
[2022-03-28] MEDS: insulin lispro 100 unit/1 mL SUBCUT (11:52)
[2022-03-28] MEDS: HYDROmorphone 1 mg/mL INJ 1 mL IVP (14:04)
[2022-03-28] MEDS: ALPRAZolam 0.5 mg Tablet 0.25 MG PO (14:04)
--- NOTE | 2022-03-28 15:06 | MR_ITS ---
WS: [id number] MRI LEFT LOWER LEG WITHOUT GADOLINIUM ENHANCEMENT. INDICATION: Osteomyelitis TECHNIQUE: Very limited examination with licensed embalmer imaging and coronal STIR imaging obtained. Patient cou ld not tolerate further imaging. FINDINGS: Prior postoperative changes plate and screw fixation proximal LEFT tibia with fixation of t he chronic healed tibial plateau fracture. Mild chronic compression. Normal bone marrow signal visual ized in the distal femur and tibial shaft. Some images are degraded due to fixation hardware. Diffuse soft tissue edema in the visualized lower leg soft tissues. No drainable abscess or fluid collection . MR/MR lower leg LT wo con* [id number] IMPRESSION: Limited examination as described above. 1. Normal bone marrow signal in the distal femur and proximal to mid tibial sh aft. Some images degraded due to susceptibility artifact from hardware. No abno rmal bone marrow findings to suggest osteomyelitis. 2. Diffuse soft tissue edema with skin thickening. No drainable abscess or flu id collection.
[2022-03-28 17:01] LABS: Glucose Point of Care 138 mg/dL (70-110)
--- NOTE | 2022-03-28 17:55 | PC.NURSE ---
spoke with provider about patient being discharged to home and still having a floey in place instructions to remove gross received
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
--- NOTE | 2022-03-28 18:27 | PC.NURSE ---
Discharge Note Patient discharged to home via ambulance transport accompanied by ambulance personnel. Discharge instructions reviewed with patient and/or bilingual inside sales representative. Mobile pharmacy medications and/or prescriptions provided. Belongings/home medications returned.
== END 2022-03-28 18:29 | disposition home health service (06) | DRG 871 ==
LOC: ER 20:09 → MEDSURG 21:19
PROVIDERS: Emergency Medicine; Internal Medicine; Admitting Provider Family Medicine; Emergency Provider Emergency Medicine; PCP Nurse Practitioner Family; Visit Provider Internal Medicine
DX: A41.9 Sepsis, unspecified organism (principal); I50.31 Acute diastolic (congestive) heart failure; L03.116 Cellulitis of left lower limb; L97.419 Non-pressure chronic ulcer of right heel and midfoot with unspecified severity; I13.0 Hypertensive heart and chronic kidney disease with heart failure and stage 1 through stage 4 chronic kidney disease, or unspecified chronic kidney disease; N17.9 Acute kidney failure, unspecified; E11.621 Type 2 diabetes mellitus with foot ulcer; L97.521 Non-pressure chronic ulcer of other part of left foot limited to breakdown of skin; N18.9 Chronic kidney disease, unspecified; E11.22 Type 2 diabetes mellitus with diabetic chronic kidney disease; E11.42 Type 2 diabetes mellitus with diabetic polyneuropathy; E11.51 Type 2 diabetes mellitus with diabetic peripheral angiopathy without gangrene; F41.8 Other specified anxiety disorders; K21.9 Gastro-esophageal reflux disease without esophagitis; E78.5 Hyperlipidemia, unspecified; F17.210 Nicotine dependence, cigarettes, uncomplicated; M17.32 Unilateral post-traumatic osteoarthritis, left knee; T14.90XS Injury, unspecified, sequela; V49.9XXS Car occupant (driver) (passenger) injured in unspecified traffic accident, sequela; J44.9 Chronic obstructive pulmonary disease, unspecified; G47.30 Sleep apnea, unspecified; I87.2 Venous insufficiency (chronic) (peripheral); S92.532A Displaced fracture of distal phalanx of left lesser toe(s), initial encounter for closed fracture; X58.XXXA Exposure to other specified factors, initial encounter; Z79.82 Long term (current) use of aspirin; Z79.02 Long term (current) use of antithrombotics/antiplatelets; Z79.891 Long term (current) use of opiate analgesic; Z79.4 Long term (current) use of insulin
CPT/HCPCS: 36415; 36416; 36600; 51702; 71045; 73562; 73590; 73620; 73630; 73718; 80053; 80202; 81001; 82803; 82962; 83036; 83605; 83735; 83880; 84100; 84145; 84443; 85025; 85651; 86140; 87040; 87150; 87186; 87205; 93005; 93306; 93925; 93971; 94640; 94660; 94664; 94762; 96365; 96367; 96372; 96375; 96376; 97110; 97161; 97165; 97530; 99285; C8929; C9113; J1170; J1650; J1815; J1940; J2270; J2543; J3370; J7050; L3260; Q9956

== ENCOUNTER 2022-04-05 12:14 | Emergency (ER) | payer MEDICARE, OTHER, SELFPAY ==
[2022-04-05 12:48] LABS: Basophils # 0.2 10^3/uL (0.0-0.1); Basophils % 1.2 %; Eosinophils # 0.5 10^3/uL (0.0-0.8); Eosinophils % 3.4 %; Hematocrit 41.4 % (42.0-52.0); Hemoglobin 13.5 g/dL (11.7-16.6); Lymphocytes # 3.2 10^3/uL (0.8-4.8); Lymphocytes % 23.6 %; Mean Corpuscular HGB Conc 32.6 g/dL (30.0-36.0); Mean Corpuscular Hemoglobin 32.3 pg (28.0-34.0); Mean Platelet Volume 10.3 fL (7.4-10.4); Monocytes # 1.4 10^3/uL (0.2-0.9); Neutrophils # 8.23 10^3/uL (1.8-7.7); Neutrophils % 60.2 %; Nucleated Red Blood Cells % 0 %; Platelet Count 378 10^3/cmm (130-400); Red Blood Count 4.18 10^6/uL (4.1-5.3); Red Cell Distribution Width 14.5 % (12.1-15.1); White Blood Count 13.7 10^3/uL (4.0-10.0)
[2022-04-05 12:49] VITALS: BP 185/82; PULSE 64; RESP 18; TEMP 36.8; O2SAT 93
[2022-04-05 13:13] LABS: Alanine Aminotransferase 13 U/L (0-41); Albumin Level 2.4 g/dL (3.5-5.2); Alkaline Phosphatase 189 U/L (40-130); Anion Gap 14.3 (5-19); Aspartate Amino Transferase 19 U/L (0-40); Blood Urea Nitrogen 13 mg/dL (8-23); C Reactive Protein 115.7 mg/L (0.0-4.9); Calcium 9.9 mg/dL (8.5-10.5); Carbon Dioxide 27 mmol/L (22-29); Chloride 98 mmol/L (98-107); Globulin 4.4 g/dL (1.3-4.6); Glomerular Filtration Rate 98.3 mL/min (90-130); Glucose 143 mg/dL (65-115); Osmolality Calculated 283 mOsm/kg (285-295); Potassium 4.3 mmol/L (3.5-5.1); Sodium 135 mmol/L (136-145); Total Bilirubin 0.4 mg/dL (0.15-1.2); Total Protein 6.8 g/dL (6.6-8.7)
[2022-04-05 19:41] VITALS: BP 143/97; PULSE 73; RESP 18; O2SAT 91; BMI 46.0
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
--- NOTE | 2022-04-05 20:13 | USR_ITS ---
PROCEDURE INFORMATION: Exam: US Duplex Left Lower Extremity Veins, Limited Exam date and time: 04/05/2022 8:33 PM Age: 62 years old Clinical indication: Edema, localized; Lower extremity, bilateral; Patient HX: Chronic ble edema l>r. No history of dvt per patient. TECHNIQUE: Imaging protocol: Real-time Duplex ultrasound of the Left Lower Extremity with 2-D borrego scale, color Doppler flow and spectral waveform analysis with image documentation. Limited exam focused on the left lower extremity veins. COMPARISON: US CV arterial duplex [facility] [id number] 03/26/2022 3:04 PM FINDINGS: Left deep veins: Unremarkable. The common femoral, femoral, proximal profunda femoral and popliteal veins are patent without thrombus. Normal Doppler waveforms. Normal compressibility and/or augmentation response. Left superficial veins: Unremarkable. Saphenofemoral junction is patent without thrombus. Soft tissues: Superficial soft tissue edema. US/CV venous duplex [facility] [id number] IMPRESSION: No evidence of left lower extremity deep vein thrombosis.
[2022-04-05 20:35] VITALS: RESP 16
[2022-04-05] MEDS: morphine 4 mg/mL SDV 1 mL IVP (20:35)
[2022-04-05 21:56] VITALS: BP 167/82; PULSE 79; RESP 18; O2SAT 93
== END 2022-04-05 22:28 | disposition home or self-care (01) ==
PROVIDERS: Physician Assistant; Emergency Provider Emergency Medicine; PCP Nurse Practitioner Family
DX: R60.0 Localized edema (principal); M79.605 Pain in left leg; E11.9 Type 2 diabetes mellitus without complications; I10 Essential (primary) hypertension; E78.5 Hyperlipidemia, unspecified; K21.9 Gastro-esophageal reflux disease without esophagitis; I73.9 Peripheral vascular disease, unspecified
CPT/HCPCS: 36415; 80053; 85025; 86140; 93971; 96374; 99285; J2270

== ENCOUNTER → 2022-04-11 11:27 | Outpatient (BNVA) | payer MEDICARE, OTHER, SELFPAY | PROVIDERS: PCP Nurse Practitioner Family; Visit Provider Nurse Practitioner Family | DX: D72.829 Elevated white blood cell count, unspecified (principal); R60.0 Localized edema; I50.30 Unspecified diastolic (congestive) heart failure; L03.116 Cellulitis of left lower limb; M17.32 Unilateral post-traumatic osteoarthritis, left knee | CPT/HCPCS: 80053; 84550; 85025; 86140 ==

== ENCOUNTER → 2022-04-12 07:44 | Outpatient (BNVA) | payer MEDICARE, OTHER, SELFPAY | PROVIDERS: PCP Nurse Practitioner Family; Visit Provider Orthopaedic Surgery | DX: M17.32 Unilateral post-traumatic osteoarthritis, left knee (principal); L97.519 Non-pressure chronic ulcer of other part of right foot with unspecified severity; L97.529 Non-pressure chronic ulcer of other part of left foot with unspecified severity; S92.352A Displaced fracture of fifth metatarsal bone, left foot, initial encounter for closed fracture; S92.342A Displaced fracture of fourth metatarsal bone, left foot, initial encounter for closed fracture; X58.XXXA Exposure to other specified factors, initial encounter | CPT/HCPCS: 99213 ==

== ENCOUNTER 2022-05-05 11:51 | Outpatient (CLI) | payer MEDICARE, OTHER, SELFPAY ==
[2022-05-05 12:25] LABS: Basophils # 0.1 10^3/uL (0.0-0.1); Basophils % 1.2 %; Eosinophils # 0.7 10^3/uL (0.0-0.8); Eosinophils % 6.5 %; Hematocrit 37.3 % (42.0-52.0); Hemoglobin 12.2 g/dL (11.7-16.6); Lymphocytes # 3.1 10^3/uL (0.8-4.8); Lymphocytes % 30.4 %; Mean Corpuscular HGB Conc 32.7 g/dL (30.0-36.0); Mean Corpuscular Hemoglobin 32.3 pg (28.0-34.0); Mean Corpuscular Volume 98.7 fl (80-94); Mean Platelet Volume 10.6 fL (7.4-10.4); Monocytes # 1.1 10^3/uL (0.2-0.9); Monocytes % 10.4 %; Neutrophils # 5.13 10^3/uL (1.8-7.7); Neutrophils % 50.9 %; Nucleated Red Blood Cells % 0 %; Platelet Count 384 10^3/cmm (130-400); Red Blood Count 3.78 10^6/uL (4.1-5.3); Red Cell Distribution Width 15.5 % (12.1-15.1); White Blood Count 10.1 10^3/uL (4.0-10.0)
[2022-05-05 12:51] LABS: Alanine Aminotransferase 11 U/L (0-41); Albumin Level 3.2 g/dL (3.5-5.2); Alkaline Phosphatase 143 U/L (40-130); Anion Gap 15.3 (5-19); Aspartate Amino Transferase 18 U/L (0-40); Blood Urea Nitrogen 14 mg/dL (8-23); C Reactive Protein 14.4 mg/L (0.0-4.9); Carbon Dioxide 27 mmol/L (22-29); Chloride 102 mmol/L (98-107); Globulin 3.8 g/dL (1.3-4.6); Glomerular Filtration Rate 68.1 mL/min (90-130); Glucose 140 mg/dL (65-115); Osmolality Calculated 293 mOsm/kg (285-295); Potassium 4.3 mmol/L (3.5-5.1); Sodium 140 mmol/L (136-145); Total Bilirubin 0.3 mg/dL (0.15-1.2)
== END 2022-05-05 11:52 | disposition home or self-care (01) ==
LOC: LAB 11:54
PROVIDERS: PCP Nurse Practitioner Family; Visit Provider Nurse Practitioner Family
DX: I10 Essential (primary) hypertension (principal); R79.82 Elevated C-reactive protein (CRP); D72.829 Elevated white blood cell count, unspecified
CPT/HCPCS: 36415; 80053; 85025; 86140; 87040

== ENCOUNTER → 2022-07-18 08:55 | Outpatient (BNVA) | payer MEDICARE, OTHER, SELFPAY | PROVIDERS: PCP Nurse Practitioner Family; Visit Provider Nurse Practitioner Family | DX: D72.829 Elevated white blood cell count, unspecified (principal); L03.90 Cellulitis, unspecified | CPT/HCPCS: 85025 ==

== ENCOUNTER 2022-08-07 11:23 | Outpatient (CLI) | payer MEDICARE, OTHER, SELFPAY ==
--- NOTE | 2022-08-07 11:35 | XRR_ITS ---
PROCEDURE INFORMATION: Exam: XR Chest Exam date and time: 08/07/2022 11:37 AM Age: 62 years old Clinical indication: Cough with hemorrhage; Patient HX: Coughing up blood for 2 weeks; Additional info: R05.9 - cough, unspecified TECHNIQUE: Imaging protocol: Radiologic exam of the chest. Views: 2 views. COMPARISON: CR (CHEST, ) 03/24/2022 6:52 PM FINDINGS: Lungs: There is hazy opacification of the medial right lower lung, with linear scarring and volume loss, resulting in elevation of the right hemidiaphragm. Streaky left basilar atelectasis noted. Pleural spaces: Unremarkable. No pleural effusion. No pneumothorax. Heart/Mediastinum: Stable cardiomediastinal silhouette. Bones/joints: Unremarkable. XR/XR chest 2V* [id number] IMPRESSION: Nonspecific imaging findings in the right lower lung, involving mainly the middle lobe, which can be seen with infectious or chronic inflammatory process/fibrosis. Further evaluation with CT chest should be considered in the adequate clinical setting.
== END 2022-08-07 11:24 | disposition home or self-care (01) ==
LOC: RAD 11:28
PROVIDERS: PCP Nurse Practitioner Family; Visit Provider Nurse Practitioner Family
DX: R91.8 Other nonspecific abnormal finding of lung field (principal); R05.9 Cough, unspecified; I10 Essential (primary) hypertension; E11.9 Type 2 diabetes mellitus without complications; R53.83 Other fatigue; Z79.4 Long term (current) use of insulin
CPT/HCPCS: 71046; 80053; 80061; 83036; 85025

== ENCOUNTER 2022-08-11 13:23 | Outpatient (CLI) | payer MEDICARE, OTHER, SELFPAY ==
--- NOTE | 2022-08-11 14:00 | CT_ITS ---
WS: [id number] LDCT LUNG CANCER SCREENING HISTORY: R93.89 - Abnormal findings on diagnostic imaging of other.. TECHNIQUE: Axial imaging performed from the apices to 1 cm below the costophrenic angles. Coronal and sagittal reformats are submitted with axial MIP series. All CT scans at [facility] use at least one of these dose optimization techniques: automated exposure control; mA and/or kV adjustment per patient size (includes targeted exams where dose is matched to clinical indication); or iterativ e reconstruction. DLP: 88.19 mGy.cm DIvol: Mean CTDIvol: 1.60 (mGy) COMPARISON: None available. Diagnostic quality: Suboptimal probably due to body habitus. Lung Nodules: Partially calcified nodule measuring 2.1 cm RIGHT upper lobe with adjacent areas of ate lectasis and scarring. Consistent with benign granulomata. No additional pulmonary mass or nodule. No endobronchial lesions. Lungs: Mild elevation RIGHT hemidiaphragm. Heart: Normal size heart. No pericardial effusion. Mild coronary artery calcification. Other findings: Mild atherosclerosis aorta. No mediastinal or hilar adenopathy. Limited abdominal robert ging. CT/CT lung screening [id number] IMPRESSION: LUNG-RADS: 2-Benign Appearance or Behavior FOLLOW UP: 12 Month: Continue annual screening with LDCT OTHER FINDINGS (S MODIFIER): None.
== END 2022-08-11 13:24 | disposition home or self-care (01) ==
PROVIDERS: PCP Nurse Practitioner Family; Visit Provider Nurse Practitioner Family
DX: Z12.2 Encounter for screening for malignant neoplasm of respiratory organs (principal); R93.89 Abnormal findings on diagnostic imaging of other specified body structures; R04.2 Hemoptysis
CPT/HCPCS: 71271

== ENCOUNTER 2022-10-09 12:00 | Outpatient (RCR) | payer MEDICARE, OTHER, SELFPAY | END 2022-10-27 23:59 | disposition home or self-care (01) | LOC: MOT 12:00 | PROVIDERS: PCP Nurse Practitioner Family; Visit Provider Nurse Practitioner Family | DX: I89.0 Lymphedema, not elsewhere classified (principal) | CPT/HCPCS: 97140; 97166 ==

== ENCOUNTER → 2023-03-08 11:43 | Outpatient (BNVA) | payer MEDICARE, OTHER, SELFPAY | PROVIDERS: PCP Nurse Practitioner Family; Visit Provider Nurse Practitioner Family | DX: E78.5 Hyperlipidemia, unspecified (principal); E11.9 Type 2 diabetes mellitus without complications; Z79.4 Long term (current) use of insulin; I10 Essential (primary) hypertension; D72.829 Elevated white blood cell count, unspecified; I83.209 Varicose veins of unspecified lower extremity with both ulcer of unspecified site and inflammation; L97.909 Non-pressure chronic ulcer of unspecified part of unspecified lower leg with unspecified severity | CPT/HCPCS: 80053; 80061; 83036; 85025; 86140 ==

== ENCOUNTER → 2023-04-30 08:53 | Outpatient (BNVA) | payer MEDICARE, OTHER, SELFPAY | PROVIDERS: PCP Nurse Practitioner Family; Visit Provider Nurse Practitioner Family | DX: S81.801A Unspecified open wound, right lower leg, initial encounter (principal); S81.802A Unspecified open wound, left lower leg, initial encounter; S91.001A Unspecified open wound, right ankle, initial encounter; X58.XXXA Exposure to other specified factors, initial encounter | CPT/HCPCS: 87070; 87077; 87184 ==

== ENCOUNTER → 2023-05-04 08:00 | Outpatient (BNVA) | payer MEDICARE, OTHER, SELFPAY | PROVIDERS: PCP Nurse Practitioner Family; Visit Provider Thoracic Surgery (Cardiothoracic Vascular Surgery) | DX: E11.52 Type 2 diabetes mellitus with diabetic peripheral angiopathy with gangrene (principal); E11.621 Type 2 diabetes mellitus with foot ulcer; L97.521 Non-pressure chronic ulcer of other part of left foot limited to breakdown of skin; E11.622 Type 2 diabetes mellitus with other skin ulcer; L97.822 Non-pressure chronic ulcer of other part of left lower leg with fat layer exposed; L97.812 Non-pressure chronic ulcer of other part of right lower leg with fat layer exposed; L97.422 Non-pressure chronic ulcer of left heel and midfoot with fat layer exposed | CPT/HCPCS: 97597; 99214; A6212; A6219 ==

== ENCOUNTER 2023-05-09 06:50 | Outpatient (CLI) | payer MEDICARE, OTHER, SELFPAY ==
--- NOTE | 2023-05-09 07:15 | USCV_ITS ---
Forrest Xiong Age: 63 Gender: M : 1960 Exam Date: 05/09/2023 07:05 Ordering Phys: Dion Lane MD (Andy) ([email or web address] Technologist: Dago Hutson [place] [facility] [place]: pad ulcers Risk Factors: Previous Vascular Surgery: RIGHT LEFT Waveform Velocity (cm/s) Velocity (cm/s) Waveform Triphasic Iliac Prox Biphasic 190.7 135.4 Triphasic 154.7 Iliac Mid 120.9 Monophasic Triphasic 203.3 Iliac Distal 128.8 Monophasic Triphasic 125.9 ACADEMIC ASSISTANT 136.7 Monophasic Triphasic 140.3 SFA Prox 122.3 Biphasic Triphasic 136.7 SFA Mid 110.4 Monophasic Triphasic 116.9 SFA Dist 135.4 Biphasic Biphasic 93.3 POP 94.7 Biphasic Biphasic 69.7 PC TECH 34.2 Monophasic Biphasic 68.0 DPA 66.7 Monophasic 1.2 LUPE 0.6 FINDINGS RT BRACH 160/90 LTBRACH RT PC TECH 200 RT 190 LT DPA 100 LT PC TECH 95 Mild diffuse plaques in the iliac and femoral arteries on the right side Mild to moderate diffuse plaques in the iliac and femoral arteries on the left side Resting LUPE 1.2 on the right side and 0.6 on the left side CONCLUSIONS Abnormal resting LUPE on the left side of 0.6, suggestive of moderate peripheral arterial disease Normal resting LUPE on the right side suggesting no significant arterial obstruction. Mild to moderate diffuse plaques in the iliac and femoral arteries on the left side Mild diffuse plaque in the right iliac and femoral arteries Compared to the study from 03/18/2022, there is improvement of the LUPE on the right side. No previous LUPE is available on the left side Dr Bee Higgins MD [facility] (Electronically Signed) Final Date: 10 May 2023 06:41 S
== END 2023-05-09 06:51 | disposition home or self-care (01) ==
LOC: RAD 06:53
PROVIDERS: PCP Nurse Practitioner Family; Visit Provider Thoracic Surgery (Cardiothoracic Vascular Surgery)
DX: E11.51 Type 2 diabetes mellitus with diabetic peripheral angiopathy without gangrene (principal); E11.621 Type 2 diabetes mellitus with foot ulcer; L97.509 Non-pressure chronic ulcer of other part of unspecified foot with unspecified severity; S81.801A Unspecified open wound, right lower leg, initial encounter; S81.802A Unspecified open wound, left lower leg, initial encounter; X58.XXXA Exposure to other specified factors, initial encounter
CPT/HCPCS: 93925; 97597; 99214; A6212; A6219

== ENCOUNTER 2023-05-09 08:08 | Emergency (ER) | payer MEDICARE, OTHER, SELFPAY ==
--- NOTE | 2023-05-09 08:10 | XRR_ITS ---
PROCEDURE INFORMATION: Exam: XR Right Shoulder Exam date and time: 05/09/2023 8:19 AM Age: 63 years old Clinical indication: Right; Patient HX: RT shoulder pain no trauma; Additional info: Injury TECHNIQUE: Imaging protocol: Radiologic exam of the right shoulder. Views: 2 or more views. COMPARISON: CT lung screening [id number] 08/11/2022 1:33 PM FINDINGS: Bones/joints: Mild acromioclavicular joint arthrosis. No acute fracture or dislocation. Soft tissues: Soft tissues are normal. XR/XR shoulder RT min 2V* [id number] IMPRESSION: No acute fracture or dislocation.
[2023-05-09 08:19] VITALS: BP 186/90; PULSE 64; RESP 18; O2SAT 91
--- NOTE | 2023-05-09 08:37 | W.ED.EXTPRO ---
HPI - Extremity Problem General: Chief complaint: Extremity Problem,Nontraumatic Stated complaint: right shoulder pain Time Seen by Provider: 05/09/23 08:10 Source: patient Mode of arrival: ambulatory Limitations: no limitations History of Present Illness: 63-year-old male states that he has been having right shoulder pain over the last 3 days. He states that sharp pain is much worse with movement of his right arm denies any known injuries. Denies any fevers. Does have chronic wound to his left foot he states he had had wound cultures and started on Levaquin but denies any worsening in that foot. Denies any neck pain Associated symptoms: Deny chest pain, fever(s) or rash Review of Systems Const: Denies: fever(s), chills, body aches or change in appetite ENMT: Denies: throat pain or dental pain Card: Denies: chest pain Resp: Denies: dyspnea GI: Denies: abdominal pain, nausea, vomiting or diarrhea Musc: Reports: extremity pain; Denies: neck pain or back pain Skin/Breast: Denies: rash Neuro: Denies: headache(s) PFSH ED PFSH: Medical History Anxiety and depression Cellulitis Colon polyps Diabetes Diabetes mellitus, type II, insulin dependent Diabetic neuropathy associated with diabetes mellitus due to underlying condition GERD (gastroesophageal reflux disease) HTN (hypertension) Hx of lymphadenopathy Hyperlipemia PVD (peripheral vascular disease) Ulcer of toe Wound of left ankle Family History Family/Other Diabetes Mother Hypertension Father Hx of aneurysm Denies family history of CAD (coronary artery disease) Dementia Hyperlipidemia Chronic kidney disease (CKD) Anesthesia complication Bleeding disorder Lung disease Cancer Stroke Social History Smoking and tobacco status: current every day smoker cigarettes Packs smoked per day: 2 Years cigarettes smoked: 45 Alcohol intake: current Alcohol intake frequency: 3 or more drinks per day Substance/Drug Use: never Adopted: No Lives independently: Yes Household members: spouse Housing: House Physical Exam Const: COMMON NORMALS: no acute distress, patient oriented x3 and healthy appearing HENMT: COMMON NORMALS: normocephalic and atraumatic HEAD & SCALP: normocephalic and atraumatic Neck/C-Spine: COMMON NORMALS: full ROM and supple Chest: COMMONS NORMALS: normal inspection of the chest and normal palpation of entire chest wall Resp: COMMON NORMALS: normal respiratory effort, No retractions, No use of accessory muscles and clear to auscultation bilaterally AUSCULTATION: clear to auscultation bilaterally Cardio: COMMON NORMALS: regular rate, regular rhythm and No murmurs present (Cardio) RATE: regular rate RHYTHM: regular rhythm GI: COMMON NORMALS: Normal to inspection, nondistended, normoactive bowel sounds present, Soft to palpation, non-tender and no masses PALPATION: Yes Soft to palpation Extremity: NARRATIVE EXTREMITY EXAM: No warmth in the shoulder joint distal pulses sensation intact he does have pain with range of motion in his shoulder that arm Neuro: COMMON NORMALS: patient oriented x3, moves all extremities and no focal motor deficits Psych: COMMON NORMALS: mental status grossly normal, Normal thought process present and cooperative THOUGHT PROCESS: Normal thought process present Skin: COMMON NORMALS: no rashes or lesions noted and no wounds GENERAL SKIN EXAM: no rashes or lesions noted Course Vital Signs: Vital signs: Vital Signs Pulse Rate 64 05/09/23 08:19 Respiratory Rate 18 05/09/23 08:19 Blood Pressure 186/90 05/09/23 08:19 Pulse Oximetry 91 05/09/23 08:19 Oxygen Delivery Me thod Room Air 05/09/23 08:19 MDM - Extremity (Nontraumatic) Medical Decision Making Patient presents here with right shoulder pain likely muscular in nature he does have a mildly elevated white count he has no signs of sepsis he does have wound to his left foot he is currently on oral antibiotics she just started not feel he needs to be admitted for IV in her body she is to follow-up with wound care as scheduled on Sunday return if worsening. Medical Records I reviewed the patient's medical records. Lab Data I reviewed the patient's lab results. 05/09/23 08:24 Radiology Impressions Shoulder X-Ray 05/09/23 08:10 IMPRESSION: No acute fracture or dislocation. Laboratory Results WBC 15.07 10^3/uL (3.29-11.43) H 05/09/23 08:24 RBC 4.45 10^6/uL (3.85-5.65) 05/09/23 08:24 Hgb 14.50 g/dL (11.27-16.99) 05/09/23 08:24 Hct 45.3 % (37-53) 05/09/23 08:24 MCV 101.8 fl (82-101) H 05/09/23 08:24 MCH 32.6 pg (27-33) 05/09/23 08:24 MCHC 32.0 g/dL (30-55) 05/09/23 08:24 RDW 14.0 % (12.1-15.1) 05/09/23 08:24 Plt Count 231 10^3/cmm (157-399) 05/09/23 08:24 MPV 11.0 fL (7.4-10.4) H 05/09/23 08:24 Neut % (Auto) 62.8 % 05/09/23 08:24 Lymph % (Auto) 22.8 % 05/09/23 08:24 [place] % (Auto) 9.6 % 05/09/23 08:24 Eos % (Auto) 3.1 % 05/09/23 08:24 Baso % (Auto) 1.0 % 05/09/23 08:24 Neut # (Auto) 9.47 10^3/uL (1.8-7.7) H 05/09/23 08:24 Lymph # (Auto) 3.4 10^3/uL (0.8-4.8) 05/09/23 08:24 [place] # (Auto) 1.4 10^3/uL (0.2-0.9) H 05/09/23 08:24 Eos # (Auto) 0.5 10^3/uL (0.0-0.8) 05/09/23 08:24 Baso # (Auto) 0.2 10^3/uL (0.0-0.1) H 05/09/23 08:24 Nucleated RBC % (auto) 0 % 05/09/23 08:24 Nucleated RBCs # 0.0 /100WBC 05/09/23 08:24 All radiology interpretation(s) finalized by discharge Discharge Plan Discharge Patient Disposition: Home Clinical Impression: Pain in right shoulder Condition: Stable Prescriptions: New Naprosyn 500 mg tablet 500 mg PO BID PRN (Reason: pain) Qty: 20 0RF No Action alprazolam 0.25 mg tablet 0.25 mg PO DAILY PRN (Reason: Anxiety) Qty: 30 0RF Rx Instructions: MUST LAST THIRTY DAYS Avoid taking with tramadol (DME) blood-glucose meter [Blood Glucose Monitoring] Kit See Rx Instructions .ROUTE .MEDSUPPLY Qty: 1 0RF Rx Instructions: As directed (DME) Dexcom G6 Employee Relations Administrator Misc See Rx Instructions .Route Qty: 1 0RF Rx Instructions: [place] [place] Dexcom G6 Sensor Device See Rx Instructions .Route Qty: 3 2RF Rx Instructions: As directed (DME) compression socks See Rx Instructions .Route .MEDSUPPLY Qty: 1 0RF Rx Instructions: As directed furosemide 40 mg tablet 40 mg PO DAILY Qty: 90 1RF tramadol 50 mg tablet 50 mg PO TID PRN (Reason: Pain) Qty: 60 0RF sildenafil [Viagra] 25 mg tablet 25 mg PO DAILY PRN (Reason: sexual activity) Qty: 10 0RF Rx Instructions: administer 30 minutes to 4 hours before activity (DME) diabetic shoes See Rx Instructions .Route .MEDSUPPLY Qty: 1 0RF Rx Instructions: As directed pregabalin [Lyrica] 150 mg capsule 150 mg PO BID 30 Days Qty: 60 2RF mupirocin 2 % ointment 1 applic topical DAILY Qty: 15 0RF (DME) hospital bed See Rx Instructions .Route .MEDSUPPLY Qty: 1 0RF Rx Instructions: As directed (DME) motorized wheelchair See Rx Instructions .Route .MEDSUPPLY Qty: 1 0RF Rx Instructions: [place] [place] Motorized Wheel Chair Evaluation See Rx Instructions .Route .MEDSUPPLY Qty: 1 0RF Rx Instructions: Evaluation for motorized wheel chair (DME) Contour Next Test Strips Strip See Rx Instructions .ROUTE .MEDSUPPLY Qty: 50 2RF Rx Instructions: [place] [place] pen needle, diabetic [TechLITE Pen Needle] 32 gauge x 1/4 needle See Rx Instructions .ROUTE .MEDSUPPLY Qty: 50 0RF Rx Instructions: As directed Mepilex AG 6 X 6 bandage 1 ea topical Q3D Qty: 10 0RF bupropion HCl 150 mg tablet sustained-release 12 hr See Rx Instructions .ROUTE .COMPLEX Qty: 180 0RF Dose Instruction: TAKE ONE TABLET BY MOUTH TWICE DAILY Rx Instructions: TAKE ONE TABLET BY MOUTH TWICE DAILY buspirone 10 mg tablet See Rx Instructions .ROUTE .COMPLEX Qty: 90 0RF Dose Instruction: TAKE ONE TABLET BY MOUTH DAILY Rx Instructions: TAKE ONE TABLET BY MOUTH DAILY pantoprazole 40 mg tablet,delayed release (DR/EC) See Rx Instructions .ROUTE .COMPLEX Qty: 90 0RF Dose Instruction: TAKE ONE TABLET BY MOUTH DAILY Rx Instructions: TAKE ONE TABLET BY MOUTH DAILY simvastatin 40 mg tablet See Rx Instructions .ROUTE .COMPLEX Qty: 90 0RF Dose Instruction: TAKE ONE TABLET BY MOUTH DAILY Rx Instructions: TAKE ONE TABLET BY MOUTH DAILY amlodipine 5 mg tablet See Rx Instructions .ROUTE .COMPLEX Qty: 90 0RF Dose Instruction: TAKE ONE TABLET BY MOUTH DAILY Rx Instructions: TAKE ONE TABLET BY MOUTH DAILY Levemir FlexTouch U100 Insulin 100 unit/mL (3 mL) insulin pen 30 unit SUBCUT DAILY@0700 Qty: 3 0RF nebivolol 20 mg tablet See Rx Instructions .ROUTE .COMPLEX Qty: 180 0RF Dose Instruction: TAKE TWO TABLETS BY MOUTH DAILY Rx Instructions: TAKE TWO TABLETS BY MOUTH DAILY levofloxacin 500 mg tablet 500 mg PO DAILY 7 Days Qty: 7 0RF clopidogrel 75 mg Tablet 75 mg PO DAILY Qty: 90 1RF aspirin 81 mg Tablet,Delayed Release (Dr/Ec) 81 mg PO DAILY Qty: 90 3RF Discharge Orders: Discharge ED (Routine); Ordered 05/09/23 Ordered By: Bk Puente Referrals: Kathy Leonardo FNP [Primary Care Provider] - 1-3 days Discharge Diet: Advance as tolerated Discharge Activity: Resume usual activity Patient Instructions: Shoulder Pain (ED) Coding Level of Care Code ED Lead Network Engineer for Em Perez
[2023-05-09 08:41] LABS: Basophils # 0.2 10^3/uL (0.0-0.1); Eosinophils # 0.5 10^3/uL (0.0-0.8); Eosinophils % 3.1 %; Hematocrit 45.3 % (37-53); Lymphocytes # 3.4 10^3/uL (0.8-4.8); Lymphocytes % 22.8 %; Mean Corpuscular Hemoglobin 32.6 pg (27-33); Mean Corpuscular Volume 101.8 fl (82-101); Monocytes # 1.4 10^3/uL (0.2-0.9); Monocytes % 9.6 %; Neutrophils # 9.47 10^3/uL (1.8-7.7); Neutrophils % 62.8 %; Nucleated Red Blood Cells % 0 %; Platelet Count 231 10^3/cmm (157-399); Red Blood Count 4.45 10^6/uL (3.85-5.65); White Blood Count 15.07 10^3/uL (3.29-11.43)
[2023-05-09] MEDS: HYDROcodone-acetaminophen 5-325 mg Tablet 1 TAB PO (09:12)
== END 2023-05-09 09:14 | disposition home or self-care (01) ==
PROVIDERS: Emergency Provider Emergency Medicine; PCP Nurse Practitioner Family
DX: M25.511 Pain in right shoulder (principal); Z79.02 Long term (current) use of antithrombotics/antiplatelets; Z79.82 Long term (current) use of aspirin; Z79.4 Long term (current) use of insulin; F17.210 Nicotine dependence, cigarettes, uncomplicated; E11.9 Type 2 diabetes mellitus without complications; I10 Essential (primary) hypertension; E78.5 Hyperlipidemia, unspecified
CPT/HCPCS: 36415; 73030; 85025; 99284

== ENCOUNTER → 2023-05-11 08:43 | Outpatient (BNVA) | payer MEDICARE, OTHER, SELFPAY | PROVIDERS: PCP Nurse Practitioner Family; Visit Provider Thoracic Surgery (Cardiothoracic Vascular Surgery) | DX: E11.52 Type 2 diabetes mellitus with diabetic peripheral angiopathy with gangrene (principal); E11.622 Type 2 diabetes mellitus with other skin ulcer; L97.821 Non-pressure chronic ulcer of other part of left lower leg limited to breakdown of skin; L97.311 Non-pressure chronic ulcer of right ankle limited to breakdown of skin; E11.621 Type 2 diabetes mellitus with foot ulcer; L97.511 Non-pressure chronic ulcer of other part of right foot limited to breakdown of skin; L97.522 Non-pressure chronic ulcer of other part of left foot with fat layer exposed; Z09 Encounter for follow-up examination after completed treatment for conditions other than malignant neoplasm | CPT/HCPCS: 11042; 97597 ==

== ENCOUNTER → 2023-05-18 07:56 | Outpatient (BNVA) | payer MEDICARE, OTHER, SELFPAY | PROVIDERS: PCP Nurse Practitioner Family; Visit Provider Thoracic Surgery (Cardiothoracic Vascular Surgery) | DX: E11.52 Type 2 diabetes mellitus with diabetic peripheral angiopathy with gangrene (principal); E11.622 Type 2 diabetes mellitus with other skin ulcer; L97.312 Non-pressure chronic ulcer of right ankle with fat layer exposed; E11.621 Type 2 diabetes mellitus with foot ulcer; L97.311 Non-pressure chronic ulcer of right ankle limited to breakdown of skin; L97.521 Non-pressure chronic ulcer of other part of left foot limited to breakdown of skin; L97.511 Non-pressure chronic ulcer of other part of right foot limited to breakdown of skin | CPT/HCPCS: 11042; 97597; A6212 ==

== ENCOUNTER → 2023-05-25 08:03 | Outpatient (BNVA) | payer MEDICARE, OTHER, SELFPAY | PROVIDERS: PCP Nurse Practitioner Family; Visit Provider Nurse Practitioner Family | DX: E11.52 Type 2 diabetes mellitus with diabetic peripheral angiopathy with gangrene (principal); E11.622 Type 2 diabetes mellitus with other skin ulcer; L97.311 Non-pressure chronic ulcer of right ankle limited to breakdown of skin; L97.511 Non-pressure chronic ulcer of other part of right foot limited to breakdown of skin; L97.521 Non-pressure chronic ulcer of other part of left foot limited to breakdown of skin; S80.821A Blister (nonthermal), right lower leg, initial encounter; X58.XXXA Exposure to other specified factors, initial encounter | CPT/HCPCS: 97597; A6212 ==

== ENCOUNTER → 2023-06-01 07:57 | Outpatient (BNVA) | payer MEDICARE, OTHER, SELFPAY | PROVIDERS: PCP Nurse Practitioner Family; Visit Provider Thoracic Surgery (Cardiothoracic Vascular Surgery) | DX: E11.52 Type 2 diabetes mellitus with diabetic peripheral angiopathy with gangrene (principal); E11.622 Type 2 diabetes mellitus with other skin ulcer; L97.811 Non-pressure chronic ulcer of other part of right lower leg limited to breakdown of skin; L97.311 Non-pressure chronic ulcer of right ankle limited to breakdown of skin; L97.321 Non-pressure chronic ulcer of left ankle limited to breakdown of skin; E11.621 Type 2 diabetes mellitus with foot ulcer; L97.511 Non-pressure chronic ulcer of other part of right foot limited to breakdown of skin; Z09 Encounter for follow-up examination after completed treatment for conditions other than malignant neoplasm | CPT/HCPCS: 97597; A6021 ==

== ENCOUNTER → 2023-06-08 07:54 | Outpatient (BNVA) | payer MEDICARE, OTHER, SELFPAY | PROVIDERS: PCP Nurse Practitioner Family; Visit Provider Thoracic Surgery (Cardiothoracic Vascular Surgery) | DX: E11.622 Type 2 diabetes mellitus with other skin ulcer (principal); L97.811 Non-pressure chronic ulcer of other part of right lower leg limited to breakdown of skin; L97.321 Non-pressure chronic ulcer of left ankle limited to breakdown of skin; L97.311 Non-pressure chronic ulcer of right ankle limited to breakdown of skin; E11.621 Type 2 diabetes mellitus with foot ulcer; L97.521 Non-pressure chronic ulcer of other part of left foot limited to breakdown of skin | CPT/HCPCS: 97597; A6021 ==

== ENCOUNTER → 2023-06-27 08:09 | Outpatient (BNVA) | payer MEDICARE, OTHER, SELFPAY | PROVIDERS: PCP Nurse Practitioner Family; Visit Provider Nurse Practitioner Family | DX: E11.52 Type 2 diabetes mellitus with diabetic peripheral angiopathy with gangrene (principal); E11.622 Type 2 diabetes mellitus with other skin ulcer; L97.811 Non-pressure chronic ulcer of other part of right lower leg limited to breakdown of skin; L97.311 Non-pressure chronic ulcer of right ankle limited to breakdown of skin; E11.621 Type 2 diabetes mellitus with foot ulcer; L97.521 Non-pressure chronic ulcer of other part of left foot limited to breakdown of skin; Z09 Encounter for follow-up examination after completed treatment for conditions other than malignant neoplasm | CPT/HCPCS: 97597; A6021; A6212 ==

== ENCOUNTER → 2023-07-04 08:50 | Outpatient (BNVA) | payer MEDICARE, OTHER, SELFPAY | PROVIDERS: PCP Nurse Practitioner Family; Visit Provider Thoracic Surgery (Cardiothoracic Vascular Surgery) | DX: E11.52 Type 2 diabetes mellitus with diabetic peripheral angiopathy with gangrene (principal); E11.622 Type 2 diabetes mellitus with other skin ulcer; L97.811 Non-pressure chronic ulcer of other part of right lower leg limited to breakdown of skin; L97.311 Non-pressure chronic ulcer of right ankle limited to breakdown of skin; E11.621 Type 2 diabetes mellitus with foot ulcer; L97.521 Non-pressure chronic ulcer of other part of left foot limited to breakdown of skin | CPT/HCPCS: 97597; A6021; A6212 ==

== ENCOUNTER → 2023-07-11 08:24 | Outpatient (BNVA) | payer MEDICARE, OTHER, SELFPAY | PROVIDERS: PCP Nurse Practitioner Family; Visit Provider Thoracic Surgery (Cardiothoracic Vascular Surgery) | DX: E11.52 Type 2 diabetes mellitus with diabetic peripheral angiopathy with gangrene (principal); E11.622 Type 2 diabetes mellitus with other skin ulcer; L97.811 Non-pressure chronic ulcer of other part of right lower leg limited to breakdown of skin; E11.621 Type 2 diabetes mellitus with foot ulcer; L97.311 Non-pressure chronic ulcer of right ankle limited to breakdown of skin; L97.521 Non-pressure chronic ulcer of other part of left foot limited to breakdown of skin; I87.2 Venous insufficiency (chronic) (peripheral); L97.821 Non-pressure chronic ulcer of other part of left lower leg limited to breakdown of skin | CPT/HCPCS: 97597; 97598; A6021; A6212; A6252 ==

== ENCOUNTER 2023-07-18 09:53 | Outpatient (CLI) | payer MEDICARE, OTHER, SELFPAY ==
[2023-07-18 10:19] LABS: Basophils # 0.1 10^3/uL (0.0-0.1); Basophils % 0.9 %; Eosinophils # 0.7 10^3/uL (0.0-0.8); Eosinophils % 5.6 %; Hematocrit 41.4 % (37-53); Lymphocytes # 3.8 10^3/uL (0.8-4.8); Lymphocytes % 30.7 %; Mean Corpuscular HGB Conc 31.6 g/dL (30-55); Mean Corpuscular Hemoglobin 31.8 pg (27-33); Mean Corpuscular Volume 100.5 fl (82-101); Mean Platelet Volume 11.3 fL (7.4-10.4); Monocytes # 1.3 10^3/uL (0.2-0.9); Monocytes % 10.4 %; Neutrophils # 6.45 10^3/uL (1.8-7.7); Neutrophils % 51.8 %; Nucleated Red Blood Cells % 0 %; Platelet Count 212 10^3/cmm (157-399); Red Blood Count 4.12 10^6/uL (3.85-5.65); Red Cell Distribution Width 13.5 % (12.1-15.1); White Blood Count 12.44 10^3/uL (3.29-11.43)
[2023-07-18 10:47] LABS: Alanine Aminotransferase 8 U/L (0-41); Albumin Level 3.3 g/dL (3.5-5.2); Alkaline Phosphatase 114 U/L (40-130); Anion Gap 12.3 (5-19); Aspartate Amino Transferase 14 U/L (0-40); Blood Urea Nitrogen 33 mg/dL (8-23); Calcium 8.8 mg/dL (8.5-10.5); Carbon Dioxide 28 mmol/L (22-29); Chloride 105 mmol/L (98-107); Globulin 3.7 g/dL (1.3-4.6); Glomerular Filtration Rate 30.5 mL/min (90-130); Glucose 162 mg/dL (65-115); Osmolality Calculated 301 mOsm/kg (285-295); Potassium 5.3 mmol/L (3.5-5.1); Sodium 140 mmol/L (136-145); Total Bilirubin 0.3 mg/dL (0.15-1.2)
== END 2023-07-18 09:54 | disposition home or self-care (01) ==
LOC: LAB 09:53
PROVIDERS: PCP Nurse Practitioner Family; Visit Provider Thoracic Surgery (Cardiothoracic Vascular Surgery)
DX: E11.52 Type 2 diabetes mellitus with diabetic peripheral angiopathy with gangrene (principal); E11.622 Type 2 diabetes mellitus with other skin ulcer; L97.811 Non-pressure chronic ulcer of other part of right lower leg limited to breakdown of skin; L97.821 Non-pressure chronic ulcer of other part of left lower leg limited to breakdown of skin; L97.311 Non-pressure chronic ulcer of right ankle limited to breakdown of skin; E11.621 Type 2 diabetes mellitus with foot ulcer; L97.521 Non-pressure chronic ulcer of other part of left foot limited to breakdown of skin; I87.2 Venous insufficiency (chronic) (peripheral)
CPT/HCPCS: 36415; 80053; 85025; 97597; A6021

== ENCOUNTER 2023-08-01 09:31 | Outpatient (CLI) | payer MEDICARE, SELFPAY ==
[2023-08-01 10:23] LABS: Basophils # 0.2 10^3/uL (0.0-0.1); Basophils % 1.6 %; Eosinophils # 0.8 10^3/uL (0.0-0.8); Eosinophils % 7.1 %; Hematocrit 42.3 % (37-53); Lymphocytes # 3.9 10^3/uL (0.8-4.8); Lymphocytes % 35.4 %; Mean Corpuscular HGB Conc 32.4 g/dL (30-55); Mean Corpuscular Hemoglobin 31.4 pg (27-33); Mean Corpuscular Volume 96.8 fl (82-101); Mean Platelet Volume 10.8 fL (7.4-10.4); Monocytes % 9.3 %; Neutrophils # 5.09 10^3/uL (1.8-7.7); Neutrophils % 46.1 %; Nucleated Red Blood Cells % 0 %; Platelet Count 235 10^3/cmm (157-399); Red Blood Count 4.37 10^6/uL (3.85-5.65); Red Cell Distribution Width 13.6 % (12.1-15.1); White Blood Count 11.03 10^3/uL (3.29-11.43)
[2023-08-01 10:42] LABS: Anion Gap 13.5 (5-19); Blood Urea Nitrogen 32 mg/dL (8-23); Calcium 8.9 mg/dL (8.5-10.5); Carbon Dioxide 24 mmol/L (22-29); Chloride 103 mmol/L (98-107); Glomerular Filtration Rate 36.1 mL/min (90-130); Glucose 135 mg/dL (65-115); Osmolality Calculated 289 mOsm/kg (285-295); Potassium 5.5 mmol/L (3.5-5.1); Sodium 135 mmol/L (136-145)
== END 2023-08-01 09:32 | disposition home or self-care (01) ==
LOC: LAB 09:34
PROVIDERS: PCP Nurse Practitioner Family; Visit Provider Thoracic Surgery (Cardiothoracic Vascular Surgery)
DX: N28.9 Disorder of kidney and ureter, unspecified (principal); E11.52 Type 2 diabetes mellitus with diabetic peripheral angiopathy with gangrene; E11.622 Type 2 diabetes mellitus with other skin ulcer; L97.811 Non-pressure chronic ulcer of other part of right lower leg limited to breakdown of skin; L97.821 Non-pressure chronic ulcer of other part of left lower leg limited to breakdown of skin; L98.492 Non-pressure chronic ulcer of skin of other sites with fat layer exposed; E11.621 Type 2 diabetes mellitus with foot ulcer; L97.311 Non-pressure chronic ulcer of right ankle limited to breakdown of skin; L97.521 Non-pressure chronic ulcer of other part of left foot limited to breakdown of skin
CPT/HCPCS: 80048; 85025; 97597; 97598; A6219

== ENCOUNTER → 2023-08-17 15:14 | Outpatient (BNVA) | payer MEDICARE, SELFPAY | PROVIDERS: PCP Nurse Practitioner Family; Visit Provider Thoracic Surgery (Cardiothoracic Vascular Surgery) | DX: I96 Gangrene, not elsewhere classified (principal); I87.2 Venous insufficiency (chronic) (peripheral); L97.821 Non-pressure chronic ulcer of other part of left lower leg limited to breakdown of skin; L98.492 Non-pressure chronic ulcer of skin of other sites with fat layer exposed; E11.52 Type 2 diabetes mellitus with diabetic peripheral angiopathy with gangrene; E11.622 Type 2 diabetes mellitus with other skin ulcer; L97.211 Non-pressure chronic ulcer of right calf limited to breakdown of skin; Z09 Encounter for follow-up examination after completed treatment for conditions other than malignant neoplasm | CPT/HCPCS: 11042; 97597; A6021 ==

== ENCOUNTER → 2023-08-24 15:37 | Outpatient (BNVA) | payer MEDICARE, SELFPAY | PROVIDERS: PCP Nurse Practitioner Family; Visit Provider Thoracic Surgery (Cardiothoracic Vascular Surgery) | DX: I87.2 Venous insufficiency (chronic) (peripheral) (principal); L97.822 Non-pressure chronic ulcer of other part of left lower leg with fat layer exposed; L98.492 Non-pressure chronic ulcer of skin of other sites with fat layer exposed; E11.52 Type 2 diabetes mellitus with diabetic peripheral angiopathy with gangrene; E11.621 Type 2 diabetes mellitus with foot ulcer; L97.321 Non-pressure chronic ulcer of left ankle limited to breakdown of skin; E11.622 Type 2 diabetes mellitus with other skin ulcer; L97.811 Non-pressure chronic ulcer of other part of right lower leg limited to breakdown of skin | CPT/HCPCS: 97597; 97598; A6021; A6212 ==

== ENCOUNTER → 2023-08-31 14:54 | Outpatient (BNVA) | payer MEDICARE, SELFPAY | PROVIDERS: PCP Nurse Practitioner Family; Visit Provider Thoracic Surgery (Cardiothoracic Vascular Surgery) | DX: E11.52 Type 2 diabetes mellitus with diabetic peripheral angiopathy with gangrene (principal); E11.622 Type 2 diabetes mellitus with other skin ulcer; L97.321 Non-pressure chronic ulcer of left ankle limited to breakdown of skin; L97.811 Non-pressure chronic ulcer of other part of right lower leg limited to breakdown of skin; S80.822D Blister (nonthermal), left lower leg, subsequent encounter; S91.111D Laceration without foreign body of right great toe without damage to nail, subsequent encounter; X58.XXXD Exposure to other specified factors, subsequent encounter | CPT/HCPCS: 97597; 97598; A6021; A6212 ×2; A6219 ==

== ENCOUNTER → 2023-09-03 10:58 | Outpatient (BNVA) | payer MEDICARE, SELFPAY | PROVIDERS: PCP Nurse Practitioner Family; Visit Provider Nurse Practitioner Family | DX: E87.5 Hyperkalemia (principal); L03.90 Cellulitis, unspecified; I87.2 Venous insufficiency (chronic) (peripheral); L97.811 Non-pressure chronic ulcer of other part of right lower leg limited to breakdown of skin; N28.9 Disorder of kidney and ureter, unspecified | CPT/HCPCS: 80053; 85025; 86140 ==

== ENCOUNTER → 2023-09-06 14:10 | Outpatient (BNVA) | payer MEDICARE, SELFPAY | PROVIDERS: PCP Nurse Practitioner Family; Visit Provider Thoracic Surgery (Cardiothoracic Vascular Surgery) | DX: E11.622 Type 2 diabetes mellitus with other skin ulcer (principal); L97.321 Non-pressure chronic ulcer of left ankle limited to breakdown of skin; L97.811 Non-pressure chronic ulcer of other part of right lower leg limited to breakdown of skin | CPT/HCPCS: 97597; 97598; A6021; A6219 ==

== ENCOUNTER → 2023-09-12 08:03 | Outpatient (BNVA) | payer MEDICARE, SELFPAY | PROVIDERS: PCP Nurse Practitioner Family; Visit Provider Thoracic Surgery (Cardiothoracic Vascular Surgery) | DX: E11.622 Type 2 diabetes mellitus with other skin ulcer (principal); L97.811 Non-pressure chronic ulcer of other part of right lower leg limited to breakdown of skin; L97.821 Non-pressure chronic ulcer of other part of left lower leg limited to breakdown of skin; L97.521 Non-pressure chronic ulcer of other part of left foot limited to breakdown of skin; Z09 Encounter for follow-up examination after completed treatment for conditions other than malignant neoplasm; E11.621 Type 2 diabetes mellitus with foot ulcer; S91.114D Laceration without foreign body of right lesser toe(s) without damage to nail, subsequent encounter; X58.XXXD Exposure to other specified factors, subsequent encounter | CPT/HCPCS: 97597; 97598 ==

== ENCOUNTER → 2023-09-14 08:58 | Outpatient (BNVA) | payer MEDICARE, SELFPAY | PROVIDERS: PCP Nurse Practitioner Family; Visit Provider Thoracic Surgery (Cardiothoracic Vascular Surgery) | DX: E11.622 Type 2 diabetes mellitus with other skin ulcer (principal); L97.811 Non-pressure chronic ulcer of other part of right lower leg limited to breakdown of skin; L97.821 Non-pressure chronic ulcer of other part of left lower leg limited to breakdown of skin; E11.621 Type 2 diabetes mellitus with foot ulcer; L97.521 Non-pressure chronic ulcer of other part of left foot limited to breakdown of skin; S91.114D Laceration without foreign body of right lesser toe(s) without damage to nail, subsequent encounter; X58.XXXD Exposure to other specified factors, subsequent encounter; Z09 Encounter for follow-up examination after completed treatment for conditions other than malignant neoplasm | CPT/HCPCS: 29581; A6252 ==

== ENCOUNTER 2023-09-17 11:37 | Outpatient (CLI) | payer MEDICARE, SELFPAY ==
--- NOTE | 2023-09-17 11:48 | XRR_ITS ---
PROCEDURE INFORMATION: Exam: XR Chest Exam date and time: 09/17/2023 11:50 AM Age: 63 years old Clinical indication: Dyspnea; Additional info: R06.00 - dyspnea, unspecified TECHNIQUE: Imaging protocol: Radiologic exam of the chest. Views: 2 views. COMPARISON: CT lung screening [id number] 08/11/2022 1:33 PM FINDINGS: Lungs: Compared with the prior chest x-ray and CT, extensive pleuroparenchymal scarring in the right chest again noted. A focal nodular lesion in the right mid lung zone is also again noted with limited comparison on plain film secondary to complex features. No new or increasing pulmonary pathology is seen. Pleural spaces: No pleural effusion. Heart/Mediastinum: Cardiomediastinal contours within normal limits. Bones/joints: No significant pathology. XR/XR chest 2V* [id number] IMPRESSION: No acute pathology or significant interval change. For more detailed comparison of right mid lung zone lesion, repeat CT is recommended for more specific assessment.
== END 2023-09-17 11:38 | disposition home or self-care (01) ==
LOC: RAD 11:44
PROVIDERS: PCP Nurse Practitioner Family; Visit Provider Nurse Practitioner Family
DX: R06.00 Dyspnea, unspecified (principal); R91.1 Solitary pulmonary nodule; E11.52 Type 2 diabetes mellitus with diabetic peripheral angiopathy with gangrene; E11.622 Type 2 diabetes mellitus with other skin ulcer; L97.811 Non-pressure chronic ulcer of other part of right lower leg limited to breakdown of skin; L97.821 Non-pressure chronic ulcer of other part of left lower leg limited to breakdown of skin; E11.621 Type 2 diabetes mellitus with foot ulcer; L97.521 Non-pressure chronic ulcer of other part of left foot limited to breakdown of skin; S91.111D Laceration without foreign body of right great toe without damage to nail, subsequent encounter; X58.XXXD Exposure to other specified factors, subsequent encounter; Z09 Encounter for follow-up examination after completed treatment for conditions other than malignant neoplasm
CPT/HCPCS: 71046; 82962; 97597; 97598; A6219; A6253

== ENCOUNTER → 2023-09-21 10:34 | Outpatient (BNVA) | payer MEDICARE, SELFPAY | PROVIDERS: PCP Nurse Practitioner Family; Visit Provider Thoracic Surgery (Cardiothoracic Vascular Surgery) | DX: Z51.89 Encounter for other specified aftercare (principal) | CPT/HCPCS: 29581; A6253 ==

== ENCOUNTER 2023-09-26 12:28 | Emergency (ER) | payer MEDICARE, SELFPAY ==
[2023-09-26] VITALS (110 sets, daily range): BP systolic 124–218; BP diastolic 66–184; PULSE 40–106; RESP 3–27; TEMP 36.6; O2SAT 79–99; BMI 47.5
--- NOTE | 2023-09-26 13:20 | XR_ITS ---
WS: [id number] Exam: XR chest 1V portable [id number] Date/Time of Exam: 09/26/2023 1:23 PM Reason For Exam: sob Comparison 09/17/2023. The lungs are fully expanded. Extensive chronic pulmonary parenchymal scarring in the RIGHT lower shivam g zone. Heart size top limits normal and unchanged. No pleural effusions or pneumothorax. The mediast inum is unremarkable for technique. Bony structures are intact. Limited inspiratory effort. IMPRESSION: 1. No acute process noted. 2. Extensive pulmonary parenchymal scarring in the RIGHT base. Recommendations: A detailed PA and lateral chest radiograph would yield more accurate assessment and might be considered for follow-up.
--- NOTE | 2023-09-26 13:22 | ECG_ITS ---
[facility] Test Date: 2023-09-26 Pat Name: Forrest Xiong Department: Room: Gender: Male Video Specialist: : 1960 Requested By: Johny Lopez Order Number: [id number] MD: Earnest Fitzpatrick M.D. Measurements Intervals [place] Rate: 52 P: 44 WI: 226 QRS: -32 QRSD: 121 T: 18 QT: 441 QTc: 413 Interpretive Statements SINUS BRADYCARDIA WITH FIRST DEGREE AV BLOCK WITH OCCASIONAL SUPRAVENTRICULAR PREMATURE COMPLEXES LEFT AXIS DEVIATION [QRS AXIS < -30] ANTEROSEPTAL MYOCARDIAL INFARCTION , OF INDETERMINATE AGE [40+ ms Q WAVE IN V1-V4] MODERATE T-WAVE ABNORMALITY, CONSIDER LATERAL ISCHEMIA [-0.1+ mV T-WAVE IN I/aVL/V5/V6] Compared to ECG 03/26/2022 14:55:54 First degree AV block now present Possible ischemia now present Sinus rhythm no longer present Myocardial infarct finding still present Electronically Signed On 09-26-2023 15:26:28 SCHOOL BUSINESS ADMINISTRATOR by Earnest Fitzpatrick M.D. [id number]
--- NOTE | 2023-09-26 13:23 | W.ED.WEAKNES ---
HPI - Weakness General: Chief complaint: Weakness Stated complaint: jaw pains Time Seen by Provider: 09/26/23 12:58 Source: patient and family Mode of arrival: ambulatory History of Present Illness: This patient presents to the emergency department [facility] by his spouse. He has had multiple somatic complaints that have increased over the past number of days to include terms of ringing in his ears, shortness of breath, daytime sleepiness, etc. No recent illness. No history of heart disease although his states that possibly at one time he had congestive heart failure. There was also a history of having sepsis related to his chronic dependent edema and subsequent skin breakdown. He has not any recent fevers. He does have diabetes and has had both immunizations against flu and pneumonia. He is still a tobacco user. When questioned they state that there was a consideration for sleep study but that has not been performed yet. MD Complaint: generalized weakness Associated symptoms: Reports headache(s); Denies chest pain, chills, dysuria, fever(s), nausea or vomiting Review of Systems Const: Reports: malaise; Denies: fever(s) or chills Eyes: Denies: change in vision ENMT: Denies: throat pain or odynophagia Card: Reports: edema; Denies: chest pain, palpitations or irregular heart rhythm Resp: Reports: dyspnea; Denies: productive cough, non-productive cough or wheezing GI: Denies: abdominal pain, nausea, vomiting or diarrhea : Denies: flank pain, difficulty urinating, dysuria or urinary frequency Musc: Reports: extremity swelling; Denies: neck pain, back pain or extremity pain Skin/Breast: Reports: rash Neuro: Reports: headache(s); Denies: numbness in extremities or weakness in extremities Endo: Reports: tired all the time; Denies: polyuria or polydipsia PFSH ED PFSH: Medical History Wound of left ankle Cellulitis Hx of lymphadenopathy GERD (gastroesophageal reflux disease) Anxiety and depression Diabetic neuropathy associated with diabetes mellitus due to underlying condition Ulcer of toe Diabetes mellitus, type II, insulin dependent HTN (hypertension) Hyperlipemia PVD (peripheral vascular disease) Diabetes Colon polyps Family History Family/Other Diabetes Mother Hypertension Father Hx of aneurysm Denies family history of CAD (coronary artery disease) Dementia Hyperlipidemia Chronic kidney disease (CKD) Anesthesia complication Bleeding disorder Lung disease Cancer Stroke Social History Smoking and tobacco/nicotine status: current every day tobacco/nicotine user cigarettes Packs smoked per day: 2 Years cigarettes smoked: 45 Alcohol intake: current Alcohol intake frequency: 3 or more drinks per day Substance/Drug Use: never Adopted: No Lives independently: Yes Household members: spouse Housing: House Physical Exam Narrative: EXAM NARRATIVE: Morbidly obese gentleman who is alert and answers questions with some lag at times but generally goal-directed in his answers. Const: COMMON NORMALS: patient oriented x3 and alert GENERAL APPEARANCE: cooperative NUTRITIONAL APPEARANCE: obese ORIENTATION/CONSCIOUSNESS: Yes awake HENMT: COMMON NORMALS: normocephalic, atraumatic, external ears normal, TM's normal bilaterally, Normal nasal mucous membranes and turbinates present, moist oral mucous membranes and oropharynx normal HEAD & SCALP: normal to inspection, normocephalic and atraumatic; no scalp tenderness and no Temporal artery tenderness present FACE & SINUS: normal facial exam and sinuses nontender; no TMJ findings NOSE: Normal nasal mucous membranes and turbinates present EXTERNAL EAR: Yes external ears normal TYMPANIC MEMBRANE: TM's normal bilaterally MOUTH: no TMJ findings Eye: COMMON NORMALS: Equal, round and reactive pupils present, EOMs intact bilaterally and conjunctivae normal CONJUNCTIVA: Yes conjunctivae normal PUPIL: Yes Equal, round and reactive pupils present Neck/C-Spine: COMMON NORMALS: full ROM, no lymphadenopathy and no JVD Chest: COMMONS NORMALS: normal inspection of the chest and normal palpation of entire chest wall Resp: COMMON NORMALS: normal respiratory effort EFFORT & INSPECTION: Yes able to speak in complete sentences AUSCULTATION: diminished lung sounds Cardio: COMMON NORMALS: no JVD, regular rate, regular rhythm, No murmurs present (Cardio) and Peripheral pulses 2+ throughout RATE: regular rate RHYTHM: regular rhythm PERIPHERAL PULSES: Peripheral pulses 2+ throughout GI: COMMON NORMALS: Normal to inspection, nondistended, normoactive bowel sounds present, Soft to palpation and non-tender PALPATION: Yes Soft to palpation : COMMON NORMALS: Yes no CVA tenderness BLADDER/KIDNEY EXAM: Yes no CVA tenderness Back/Pelvis: COMMON NORMALS: no CVA tenderness, thoracic and lumbar spine normal to inspection and no thoracic nor lumbar tenderness Extremity: COMMON NORMALS: no calf tenderness NARRATIVE EXTREMITY EXAM: He has bilateral pretibial edema with hypertrophy of the skin of the lower extremities from the knee distally bilaterally. He also has some areas of dry flaky skin with some small areas of skin cracking and fissuring. The generalized color of the skin of both lower extremities is erythematous. There is no serpiginous border proximally. There is no proximal lymphangitis or lymphadenopathy. Neuro: COMMON NORMALS: patient oriented x3, moves all extremities and no focal motor deficits SENSORIUM/ORIENTATION: Yes alert Psych: COMMON NORMALS: mental status grossly normal Course Reevaluation(s): Reevaluation #1: Patient's had some diuresis from his initial Lasix. Still oxygen requiring and will need additional diuresis and likely echocardiogram. I think the patient's qualifies for placing in observation status to ensure we get adequate diuresis and then make a disposition after that time. Time: 16:08 Vital Signs: Vital signs: Vital Signs Temperature 97.8 F 09/26/23 12:40 Pulse Rate 70 09/26/23 15:45 Respiratory Rate 15 09/26/23 15:45 Blood Pressure 181/109 09/26/23 15:45 Pulse Oximetry 90 09/26/23 15:40 Oxygen Delivery Me thod Room Air 09/26/23 12:40 MDM - Weakness Medical Decision Making This gentleman was brought to the emergency department by his . She states that he has had increasing confusion daytime sleepiness fatigue and become more short of breath over the last several days. She states that he does have a history of possible congestive heart failure but no known history of coronary artery disease. Not had any history of rhythm disturbance. stated that he had a sleep study pending but has never been officially diagnosed having of obstructive sleep apnea. No recent fevers chills or exposure to infectious disease known. Clinical examination revealed a morbidly obese gentleman who was oxygen requiring and hypertensive at the initial evaluation. He had diminished breath sounds with few crackles at the bases noted bilaterally. He also had peripheral edema the brawny type consistent with peripheral vascular disease. Patient's workup was notable for a blood gas that showed some mild CO2 retention and respiratory acidosis consistent with that without any other worrisome findings. His BNP was markedly elevated and twice that of previous values noted within our system. His initial troponin was slightly elevated but no delta noted at 2 hours and no EKG changes suggestive of dynamic changes or ACS. A CTPA was ordered and did not reveal any evidence of pulmonary embolus but did have findings suggestive of pulmonary congestion consistent with his clinical picture. Because of his oxygen requirements, markedly elevated BNP and other findings clinically the patient is being placed in observation status for continued diuresis, echocardiogram as indicated and further studies to determine final disposition. Lab Data I reviewed the patient's lab results. 09/26/23 12:57 09/26/23 12:57 Laboratory Results WBC 9.82 10^3/uL (3.29-11.43) 09/26/23 12:57 RBC 3.94 10^6/uL (3.85-5.65) 09/26/23 12:57 Hgb 12.10 g/dL (11.27-16.99) 09/26/23 12:57 Hct 39.4 % (37-53) 09/26/23 12:57 MCV 100.0 fl (82-101) 09/26/23 12:57 MCH 30.7 pg (27-33) 09/26/23 12:57 MCHC 30.7 g/dL (30-55) 09/26/23 12:57 RDW 13.6 % (12.1-15.1) 09/26/23 12:57 Plt Count 202 10^3/cmm (157-399) 09/26/23 12:57 MPV 12.2 fL (7.4-10.4) H 09/26/23 12:57 Neut % (Auto) 54.4 % 09/26/23 12:57 Lymph % (Auto) 27.5 % 09/26/23 12:57 [place] % (Auto) 10.5 % 09/26/23 12:57 Eos % (Auto) 6.0 % 09/26/23 12:57 Baso % (Auto) 0.9 % 09/26/23 12:57 Neut # (Auto) 5.34 10^3/uL (1.8-7.7) 09/26/23 12:57 Lymph # (Auto) 2.7 10^3/uL (0.8-4.8) 09/26/23 12:57 [place] # (Auto) 1.0 10^3/uL (0.2-0.9) H 09/26/23 12:57 Eos # (Auto) 0.6 10^3/uL (0.0-0.8) 09/26/23 12:57 Baso # (Auto) 0.1 10^3/uL (0.0-0.1) 09/26/23 12:57 Nucleated RBC % (auto) 0 % 09/26/23 12:57 Nucleated RBCs # 0.0 /100WBC 09/26/23 12:57 ESR 61 mm/hr (0-10) H 09/26/23 12:57 Specimen Type Arterial 09/26/23 13:31 Sample Site Radial, right 09/26/23 13:31 ABG pH 7.24 (7.35-7.45) L 09/26/23 13:31 ABG pCO2 63.4 mmHg (35-45) H* 09/26/23 13:31 ABG pO2 81.4 mmHg (80.0-100.0) 09/26/23 13:31 ABG HCO3 27.2 mmol/L (22-26) H 09/26/23 13:31 ABG O2 Saturation 93.8 09/26/23 13:31 ABG Base Excess -1.3 mmol/L (-2.0-2.0) 09/26/23 13:31 Sy Test Pos 09/26/23 13:31 A-a O2 Gradient Not Reportable 09/26/23 13:31 Hematocrit 37.2 % (42-52) L 09/26/23 13:31 Hgb O2 Saturation 91.7 % (95-100) L 09/26/23 13:31 Carboxyhemoglobin 1.5 %THgb (0.4-20.1) 09/26/23 13:31 Methemoglobin 0.7 % (0.4-1.5) 09/26/23 13:31 Total Hemoglobin 12.1 g/dL (14-18) L 09/26/23 13:31 Sodium 144.0 mmol/L (131-143) H 09/26/23 13:31 Potassium 4.7 mmol/L (3.5-5.0) 09/26/23 13:31 Glucose 216.0 mg/dL (70-115) H 09/26/23 13:31 Ionized Calcium 1.3 mmol/L (1.1-1.4) 09/26/23 13:31 O2 Delivery Device Nc 09/26/23 13:31 O2 Liters/Min 2.0 % 09/26/23 13:31 Vector Control Assistant ID Kaya 09/26/23 13:31 Sodium 142 mmol/L (136-145) 09/26/23 12:57 Potassium 5.0 mmol/L (3.5-5.1) 09/26/23 12:57 Chloride 109 mmol/L (98-107) H 09/26/23 12:57 Carbon Dioxide 26 mmol/L (22-29) 09/26/23 12:57 Anion Gap 12.0 (5-19) 09/26/23 12:57 BUN 27 mg/dL (8-23) H 09/26/23 12:57 Creatinine 1.8 mg/dL (0.7-1.2) H 09/26/23 12:57 GFR Calculation 38.4 mL/min (90-130) L 09/26/23 12:57 Glucose 187 mg/dL (65-115) H 09/26/23 12:57 Calculated Osmolality 304 mOsm/kg (285-295) H 09/26/23 12:57 Calcium 8.3 mg/dL (8.5-10.5) L 09/26/23 12:57 Total Bilirubin 0.2 mg/dL (0.15-1.2) 09/26/23 12:57 AST 13 U/L (0-40) 09/26/23 12:57 ALT 9 U/L (0-41) 09/26/23 12:57 Alkaline Phosphatase 109 U/L (40-130) 09/26/23 12:57 Troponin T Baseline 39 ng/L (0-15) H 09/26/23 12:57 Troponin T 120 Minute 35.00 ng/L (0-15) H 09/26/23 15:12 Delta Troponin T -4.00 ABS# (0-10) L 09/26/23 15:12 NT-Pro-B Natriuret Pep 8521 pg/mL (0-125) H 09/26/23 12:57 Total Protein 6.1 g/dL (6.6-8.7) L 09/26/23 12:57 Albumin 3.2 g/dL (3.5-5.2) L 09/26/23 12:57 Globulin 2.9 g/dL (1.3-4.6) 09/26/23 12:57 TSH 2.01 uIU/mL (0.27-4.20) 09/26/23 12:57 All radiology interpretation(s) finalized by discharge EKG Data EKG 1: I personally reviewed and interpreted this EKG as follows: Interpretation: Contemporaneous review of resting EKG reveals a ventricular rate of 61 bpm. Has what appears to be a first-degree AV block. QRS duration is normal. Corrected QTc is normal. Loss of R wave forces anteriorly V1 through V5. Suggestive of remote anterior septal IL. No acute ST-T wave changes noted. Discharge Plan Discharge Patient Disposition: Placed in Observation Clinical Impression: Renal insufficiency Congestive heart failure (CHF) Qualifiers: Heart failure type: unspecified Heart failure chronicity: acute on chronic Qualified Code(s): I50.9 - Heart failure, unspecified Coding Level of Care Code ED Pound Keeper for Em Perez
[2023-09-26 13:27] LABS: Basophils # 0.1 10^3/uL (0.0-0.1); Basophils % 0.9 %; Eosinophils # 0.6 10^3/uL (0.0-0.8); Hematocrit 39.4 % (37-53); Lymphocytes # 2.7 10^3/uL (0.8-4.8); Lymphocytes % 27.5 %; Mean Corpuscular HGB Conc 30.7 g/dL (30-55); Mean Corpuscular Hemoglobin 30.7 pg (27-33); Mean Platelet Volume 12.2 fL (7.4-10.4); Monocytes % 10.5 %; Neutrophils # 5.34 10^3/uL (1.8-7.7); Neutrophils % 54.4 %; Nucleated Red Blood Cells % 0 %; Platelet Count 202 10^3/cmm (157-399); Red Blood Count 3.94 10^6/uL (3.85-5.65); Red Cell Distribution Width 13.6 % (12.1-15.1); White Blood Count 9.82 10^3/uL (3.29-11.43)
[2023-09-26 13:30] LABS: Erythrocyte Sedimentation Rate 61 mm/hr (0-10)
[2023-09-26 13:41] LABS: Troponin(5th) Baseline 39 ng/L (0-15)
[2023-09-26 13:42] LABS: ABG PH Result 7.24 (7.35-7.45); Arterial Blood Gas Hematocrit 37.2 % (42-52); Base Excess ABG -1.3 mmol/L (-2.0-2.0); Blood Gas Allen Test Pos; Blood Gas Operator Identificat WALCI; Blood Gas Sample Site Radial, right; Blood Gas Sample Type Arterial; Carboxyhemoglobin 1.5 %THgb (0.4-20.1); HCO3 ABG 27.2 mmol/L (22-26); HGB O2 Sat 91.7 % (95-100); Ionized Calcium Level - ABG 1.3 mmol/L (1.1-1.4); Methemoglobin 0.7 % (0.4-1.5); Oxygen Device NC; Oxygen Saturation ABG 93.8; PO2 ABG 81.4 mmHg (80.0-100.0); Potassium Level - ABG 4.7 mmol/L (3.5-5.0); Total Hemoglobin 12.1 g/dL (14-18)
[2023-09-26 13:43] LABS: ABG PCO2 63.4 mmHg (35-45)
[2023-09-26 13:51] LABS: Alanine Aminotransferase 9 U/L (0-41); Albumin Level 3.2 g/dL (3.5-5.2); Alkaline Phosphatase 109 U/L (40-130); Aspartate Amino Transferase 13 U/L (0-40); Blood Urea Nitrogen 27 mg/dL (8-23); Calcium 8.3 mg/dL (8.5-10.5); Carbon Dioxide 26 mmol/L (22-29); Chloride 109 mmol/L (98-107); Globulin 2.9 g/dL (1.3-4.6); Glomerular Filtration Rate 38.4 mL/min (90-130); Glucose 187 mg/dL (65-115); NT Pro B Type Natriuretic Pept 8521 pg/mL (0-125); Osmolality Calculated 304 mOsm/kg (285-295); Sodium 142 mmol/L (136-145); Thyroid Stimulating Hormone 2.01 uIU/mL (0.27-4.20); Total Bilirubin 0.2 mg/dL (0.15-1.2); Total Protein 6.1 g/dL (6.6-8.7)
[2023-09-26 13:52] LABS: Creatinine Clr Calc Pharmacy 66.2415
--- NOTE | 2023-09-26 14:29 | PC.PHAR ---
pts sts pt is no longer taking 81 mg asprin everyday - also no longer taking clopidogrel 75 mg daily
--- NOTE | 2023-09-26 14:36 | CT_ITS ---
WS: [id number] CT CHEST ANGIOGRAPHY WITH REFORMATS HISTORY: hypoxia TECHNIQUE: Contiguous axial images are obtained through the chest during arterial injection of intrav enous contrast. Images are reconstructed to evaluate the pulmonary arteries. MIP imaging also reviewe d. All CT scans at [facility] use at least one of these dose optimization techniques: automat ed exposure control; mA and/or kV adjustment per patient size (includes targeted exams where dose is matched to clinical indication); or iterative reconstruction. CONTRAST: Omnipaque 350; 100 mL IV. DLP: 1263.31 mGy.cm COMPARISON: Lung screening CT 08/11/2022 No pulmonary embolism. Normal sized pulmonary artery. Mild atherosclerosis aorta. No aneurysm. Modera te enlargement of the heart. No pericardial or pleural effusions. Lung volumes are decreased. Mild pulmonary venous congestion. Solid mass with central coarse calcific ation RIGHT middle lobe measures 2.3 x 2.1 cm. This is most consistent with a benign granulomata. Gilma y similar in size to the prior study of 08/11/2012. There are dependent changes at the lung bases. No effusion. Small mediastinal and hilar lymph nodes. Lymph node burden and sizes are slightly prominent . Largest lymph nodes measuring up to 13 mm. These are probably reactive lymph nodes. Gallbladder is contracted. No bile duct dilatation. Soft tissue anasarca. Mild perinephric stranding. IMPRESSION: 1. No pulmonary embolism. 2. Moderate cardiomegaly. 3. Partially calcified nodule RIGHT middle lobe measures 2.3 x 2.2 cm. Similar to the prior study of 08/11/2022 and most consistent with a partially calcified granuloma. 4. Mild reactive lymphadenopathy. 5. Mild pulmonary congestion. 6. Mild soft tissue anasarca.
[2023-09-26] MEDS: iohexol 350 mg/mL 500 mL Btl (per mL) IV (15:03)
[2023-09-26] MEDS: FUROsemide 10 mg/mL SDV 4mL 40 MG IVP (15:16)
--- NOTE | 2023-09-26 15:22 | ECG_ITS ---
[facility] Test Date: 2023-09-26 Pat Name: Forrest Xiong Department: Room: Gender: Male [employer] Judge: : [id number] Requested By: Johny Lopez Order Number: [id number] Ángel MD: Earnest Fitzpatrick M.D. Measurements Intervals [place] Rate: 61 P: 0 GA: 0 QRS: -51 QRSD: 117 T: 16 QT: 456 QTc: 459 Interpretive Statements Sinus rhythm LEFT AXIS DEVIATION [QRS AXIS < -30] ANTEROSEPTAL MYOCARDIAL INFARCTION , OF INDETERMINATE AGE [40+ ms Q WAVE IN V1-V4] Compared to ECG 09/26/2023 12:35:23 Sinus bradycardia no longer present First degree AV block no longer present T-wave abnormality no longer present Possible ischemia no longer present Myocardial infarct finding still present Electronically Signed On 09-26-2023 15:27:15 DIRECTOR DIGITAL ADVERTISING by Earnest Fitzpatrick M.D. [id number]
--- NOTE | 2023-09-26 16:56 | P.HP_ITS ---
Providers/Chief Complaint 2 Primary Care Provider: GENE Bartholomew Chief Complaint: jaw pains History of Present Illness Forrest Xiong is a 63 year old male who presented to hospital for orthopnea PND and excessive drowsiness. Patient is sleeping most of the day, not able to sleep well, they have a referral for sleep study but secondary to insurance prior authorization they have not been able to schedule yet, carries history of neutrophilia however EF is unknown, not complaining of fever or diarrhea however experienced chest discomfort which was radiating towards her jaw When I saw him he was drowsy I requested BiPAP for severe hypercapnia Patient is DNR/DNI goals of care discussed with the who is at the bedside, she is okay with use of BiPAP is stating that they have an appointment to see a reimbursement liaison for chronic kidney disease stage IV CTA negative PE Review of Systems 2 General: Reports: ROS unobtainable due to medical condition Medications/Allergies Home Medications Medication Instructions Recorded Confirmed Last Taken Type alprazolam 0.25 mg tablet 0.25 mg PO DAILY PRN Anxiety #30 08/12/20 09/26/23 09/26/23 Rx tabs blood-glucose meter (Blood Glucose #1 ea 03/18/21 09/26/23 Unknown Rx Monitoring kit) blood-glucose meter,continuous #1 ea 04/04/22 09/26/23 Unknown Rx (Dexcom G6 [employer]) blood-glucose sensor (Dexcom G6 #3 ea 04/04/22 09/26/23 Unknown Rx Sensor device) hospital bed #1 ea 04/12/22 09/26/23 Unknown Rx motorized wheelchair #1 ea 04/12/22 09/26/23 Unknown Rx Motorized Wheel Chair Evaluation #1 ea 06/09/22 09/26/23 Unknown Rx compression socks #1 ea 09/18/22 09/26/23 Unknown Rx blood sugar diagnostic (Contour #50 ea 10/31/22 09/26/23 Unknown Rx Next Test Strips) pen needle, diabetic 32 gauge x #50 ea 10/31/22 09/26/23 Unknown Rx 1/ (TechLITE Pen Needle) insulin detemir U-100 100 unit/mL 30 unit (0.3 mL) SUBCUT DAILY@0700 03/06/23 09/26/23 09/26/23 Rx (3 mL) subcutaneous pen (Levemir #3 mL FlexTouch U-100 Insulin) sildenafil 25 mg tablet (Viagra) 25 mg PO DAILY PRN sexual activity 03/13/23 09/26/23 Unknown Rx #10 tabs diabetic shoes #1 ea 03/14/23 09/26/23 Unknown Rx mupirocin 2 % topical ointment 1 applic topical DAILY #15 grams 04/30/23 09/26/23 09/26/23 Rx pregabalin 150 mg capsule (Lyrica) 150 mg PO BID 30 days #60 caps 07/19/23 09/26/23 09/26/23 Rx tramadol 50 mg tablet 50 mg PO TID PRN Pain #60 tabs 09/07/23 09/26/23 Unknown Rx amlodipine 5 mg tablet 5 mg PO DAILY 09/26/23 09/26/23 09/26/23 History bupropion HCl 150 mg tablet,12 hr 150 mg PO BID 09/26/23 09/26/23 09/26/23 History sustained-release buspirone 10 mg tablet 10 mg PO DAILY 09/26/23 09/26/23 09/26/23 History furosemide 40 mg tablet 40 mg PO BID 09/26/23 09/26/23 09/26/23 History ibuprofen 200 mg capsule 400 mg PO Q6H PRN Pain 09/26/23 09/26/23 Unknown History nebivolol 20 mg tablet 40 mg PO DAILY 09/26/23 09/26/23 09/26/23 History pantoprazole 40 mg tablet,delayed 40 mg PO DAILY 09/26/23 09/26/23 09/26/23 History release simvastatin 40 mg tablet 40 mg PO QPM 09/26/23 09/26/23 09/25/23 History Allergies Allergy/AdvReac Type Severity Reaction Status Date / Time No Known Allergies Allergy Verified 09/26/23 12:48 PFSH Acute 2 PFSH: Medical History Wound of left ankle Cellulitis Hx of lymphadenopathy GERD (gastroesophageal reflux disease) Anxiety and depression Diabetic neuropathy associated with diabetes mellitus due to underlying condition Ulcer of toe Diabetes mellitus, type II, insulin dependent HTN (hypertension) Hyperlipemia PVD (peripheral vascular disease) Diabetes Colon polyps Family History Family/Other Diabetes Mother Hypertension Father Hx of aneurysm Denies family history of CAD (coronary artery disease) Dementia Hyperlipidemia Chronic kidney disease (CKD) Anesthesia complication Bleeding disorder Lung disease Cancer Stroke Social History Smoking and tobacco/nicotine status: current every day tobacco/nicotine user cigarettes Packs smoked per day: 2 Years cigarettes smoked: 45 Alcohol intake: current Alcohol intake frequency: 3 or more drinks per day Substance/Drug Use: never Adopted: No Lives independently: Yes Household members: spouse Housing: House Vitals/I&O/Wt Last Vital Signs Temp 97.8 F 09/26/23 12:40 Pulse 70 09/26/23 15:45 Resp 15 09/26/23 15:45 BP 181/109 09/26/23 15:45 Pulse Ox 90 09/26/23 15:40 O2 Del Method Room Air 09/26/23 12:40 Weight last 48 hrs Weight 158.757 kg Physical Exam 2 Narrative: Patient is extremely drowsy Will be redirectable Able to communicate shook my hand and then goes back to sleep Signs of fluid overload present Diabetic foot with lacerations and ulcer no sign of gangrene Abdomen distended S1, S2 Currently on 3 L Data 09/26/23 12:57 09/26/23 12:57 A&P Assessment and plan (1) HTN (hypertension): (2) Diastolic CHF: (3) Congestive heart failure (CHF): Qualifiers: Heart failure chronicity: acute on chronic Heart failure type: u nspecified Qualified Code(s): I50.9 - Heart failure, unspecified (4) PVD (peripheral vascular disease): (5) Severe arterial insufficiency of lower extremity: (6) Diabetes mellitus, type II, insulin dependent: (7) GERD (gastroesophageal reflux disease): (8) Renal insufficiency: (9) Acute renal insufficiency: (10) Diabetic neuropathy associated with diabetes mellitus due to underlying condition: (11) Diabetic neuropathy: Qualifiers: Diabetes mellitus type: type 2 Diabetes mellitus complication detail: d iabetic polyneuropathy Qualified Code(s): E11.42 - Type 2 diabetes mellitus with diabetic polyneuropathy (12) Sleep apnea: Qualifiers: Sleep apnea type: obstructive Qualified Code(s): G47.33 - Obstructive sleep apnea (adult) (pediatric) (13) Acute on chronic respiratory failure with hypoxia and hypercapnia: Plan Acute on chronic hypoxic hypercarbic respiratory failure Started BiPAP in the ER Patient is DNI/DNI Goals of care discussed with the Admit to CSU Repeat ABG in the evening Will request overnight pulse ox study as well Will try to arrange BiPAP before his discharge Acute diastolic CHF exacerbation Will request MUGA scan to know exactly his EF No active chest pain Troponin trending down Continue IV Lasix Diabetic foot ulcer no active gangrene Multiple lacerations present Will allow him to eat once he is more awake and alert consistent carb diet with insulin sliding scale Chronic kidney disease stage IV with baseline creatinine around 1.6-1.8 Monitor kidney function will place Fla[place] catheter DNR/DNI goals of care changed from full code to DNR/DNI Discontinue ibuprofen Attestations 2 Medical Necessity Statement*: More than 2 midnights anticipated Diagnoses HTN (hypertension) I10 Diastolic CHF I50.30 Congestive heart failure (CHF) I50.9 Heart failure chronicity: acute on chronic Heart failure type: unspecified PVD (peripheral vascular disease) I73.9 Severe arterial insufficiency of lower extremity I73.9 Diabetes mellitus, type II, insulin dependent E11.9; Z79.4 GERD (gastroesophageal reflux disease) K21.9 Renal insufficiency N28.9 Acute renal insufficiency N28.9 Diabetic neuropathy associated with diabetes mellitus due to underlying condition E08.40 Diabetic polyneuropathy associated with type 2 diabetes mellitus E11.42 Diabetes mellitus type: type 2 Diabetes mellitus complication detail: diabetic polyneuropathy Obstructive sleep apnea syndrome G47.33 Sleep apnea type: obstructive Acute on chronic respiratory failure with hypoxia and hypercapnia J96.21; J96.22
[2023-09-26 19:43] LABS: Troponin 5 6HR 38.35 ng/L (0-15)
[2023-09-26 19:45] LABS: Troponin 5 6HR Delta -0.65 ng/L (0-12)
--- NOTE | 2023-09-26 19:56 | P.EN_ITS ---
Event Note Event Note: I received a call from patient's daytime admitting provider at shift change that patient and family expressed that he would not want to stay in the hospital for additional assessment and treatment even though he has a likely reversible condition that should improve with treatment including diuresis, BiPAP, for congestive heart failure exacerbation, complicated by obesity hypoventilation syndrome, as well as assessment and management for possible additional conditions that may be contributing to his respiratory failure. Reviewed vitals, CBC, ABG, CMP, troponin, TSH, CTA, chest x-ray, EKG, ER note, discussed with admitting provider, discussed with ER provider. We discussed this with the dinorah richards and his family, initially I was worried whether he may be understanding the severity of situation as well as reversibility of condition with treatment in the hospital, however, family confirmed that this has been discussed with him and he does understand, which she also verbalizes during the discussion. He is now awake and alert, BiPAP mask is on, he is sitting up in the edge of the bed speaking with family. He is adamant that he will not be staying in the hospital, understands that he could get better and potentially return home in a day or 2, understands that if he returns home now, however, that he is at risk of or other complications from progression of respiratory failure, worsening hypercapnia, respiratory distress/arrest, other complications without appropriate diagnosis and treatment which he could get here. We discussed trying to make his stay here more comfortable, addressing any anxiety/issues that may arise with BiPAP or other therapies, provide nicotine replacement or other measures to allow him for more comfortable stay in the hospital. He verbalizes he understands the consequences, and that he still will not stay. These wishes are not new per discussion with family he has previously expressed these during/after another less health episode which is why they are aware and respectful of his goals of care and treatment choices. We discussed again also with ER provider. Family do inquire about possibility of hospice, discussed that when social work case manager about tomorrow to reach out and they could provide some resources although it is not guaranteed that he will be a candidate for hospice especially depending on if his condition deteriorates rather rapidly. Discussed with ER provider some medications for comfort may be provided in case he is dying and goes into discomfort or distress at home to in that case provide relief and comfort measures for him. Otherwise he and family understand that they may change their mind about staying and or return to the hospital to resume assessment and treatment. Event Notes Attestations Time Spent in Patient Care: 35 High MDM includes number and complexity of problems actively addressed during encounter, amount and/or complexity of data reviewed/ordered [ previous or external records, resulted lab(s)/test(s), ordered lab(s)/test(s), independent historian and other healthcare professional discussion] and described risk of complication, morbidity or mortality of management as documented
--- NOTE | 2023-09-27 09:26 | PC.SOCIAL ---
Hospice Called and spoke with patient's . She does want a hospice referral. She states that she is not familiar with companies and does not have a preference. Spoke with Elena at [facility] and faxed her information. She will reach out to patient's and follow up with patient's PCP for additional orders as needed.
== END 2023-09-26 21:38 | disposition home or self-care (01) ==
LOC: ER 16:11 → MEDSURG 19:42
PROVIDERS: Emergency Provider Emergency Medicine; PCP Nurse Practitioner Family
DX: N28.9 Disorder of kidney and ureter, unspecified (principal); I11.0 Hypertensive heart disease with heart failure; I50.9 Heart failure, unspecified; F17.210 Nicotine dependence, cigarettes, uncomplicated; E11.40 Type 2 diabetes mellitus with diabetic neuropathy, unspecified; E78.5 Hyperlipidemia, unspecified
CPT/HCPCS: 36415; 36600; 71045; 71275; 80051; 80053; 82330; 82805; 83880; 84443; 84484; 85025; 85651; 93005; 94660; 94760; 96374; 99285; J1940; Q9967